=== PATIENT | female | born 1965 | race Caucasian/White ===

== ENCOUNTER 2016-03-23 17:25 | Emergency (ER) ==
[2016-03-23 17:30] VITALS: BP 112/69; TEMP 98.9; BMI 21.1
--- NOTE | 2016-03-23 17:50 | ED.PDOC ---
General ED Provider: Dr. ERICA SORENSEN Chief Complaint: Back Pain Stated Complaint: 3 days lower back pain; no falls, no unusual activities Time Seen by Physician: 17:50 Mode of Arrival: Walk-In Information Source: Patient Exam Limitations: No limitations Primary Care Provider: LINUS HOLDER Nursing and Triage Documentation Reviewed and Agree: Yes Review of Systems - Review Of Systems Constitutional: Reports: No symptoms GI: Reports: No symptoms : Reports: No symptoms Musculoskeletal: Reports: Back pain All Other Systems: Reviewed and Negative Past Medical History - Past Medical History Previously Healthy: Yes Endocrine: Reports: DM 2 Cardiovascular: Reports: None Respiratory: Reports: COPD, Asthma Hematological: Reports: None Gastrointestinal: Reports: None Genitourinary: Reports: None Neuro/Psych: Reports: None Musculoskeletal: Reports: None Cancer: Reports: None Last Menstrual Period: n/a Other Pertinent Past Medical History: BACK SURGERIES HYST. X 2 GALLBLADDER *LEFT GALL STONES THAT WERE N - Surgical History General Surgical History: Reports: Hysterectomy, (x2), Cholecystectomy , Back Surgery (x2) - Family History Family History: Reports: Lung (asthma ) - Social History Smoking Status: Current every day smoker, Heavy tobacco smoker Hx Substance Use: No Alcohol Screening: None Physical Exam - Physical Exam Appearance: Well-appearing Pain Distress: Mild Eyes: TROY Respiratory: Airway patent Skin: Warm, Dry, Normal color Neurological: Sensation intact, Motor intact, Alert, Oriented Psychiatric: Affect appropriate, Mood appropriate Interpretation - Radiology Interpretation Radiology Interpretation By: Radiologist Radiology Results: Positive Exam Interpreted: Other Xray Comments: Abdomen pelvis = cyst R ovary; LS no apparent acute changes Critical Care Note - Critical Care Note Total Time (mins): 20 Course - Course Orders, Labs, Meds: Lab Review 03/23/16 17:55 Urine Color Yellow Urine Clarity Clear Urine pH 5.0 Ur Specific [place] 1.010 Urine Protein Negative Urine Glucose (UA) Negative Urine Ketones Negative Urine Blood Negative Urine Nitrite Negative Urine Bilirubin Negative Urine Urobilinogen 0.2 Ur Leukocyte Esterase 1+ Urine Microscopic WBC 20-30 Ur Squamous Epith Cells Not present Urine Mucus 1+ Orders Category Date Time Status URINALYSIS C & S IF INDICATED Stat LAB 03/23/16 17:55 Completed URINE CULTURE Routine LAB 03/23/16 17:55 Results Hydromorphone HCl/Pf [Dilaudid 2 mg/ml Syringe] MEDS 03/23/16 18:56 Discontinued 2 mg IM ONCE STA Ondansetron [Zofran Odt] MEDS 03/23/16 18:56 Discontinued 4 mg PO ONCE STA CT ABD/PEL WO RENAL STONE PROT Stat RADS 03/23/16 18:[address] LUMBAR SPINE W/O CONTRAST Stat RADS 03/23/16 17:51 Completed Medications Discontinued Medications Generic Name Dose Route Start Last Admin Trade Name Shelley PRN Reason Stop Dose Admin Hydromorphone HCl 2 mg 03/23/16 18:56 03/23/16 19:12 Dilaudid 2 Mg/Ml Syringe IM 03/23/16 18:57 2 mg ONCE STA Administration Ondansetron HCl 4 mg 03/23/16 18:56 03/23/16 19:13 Zofran Odt PO 03/23/16 18:57 4 mg ONCE STA Administration Vital Signs: Temp Pulse Resp BP Pulse Ox 03/23/16 17:25 98.9 F 131 H 20 112/69 95 Departure - Departure Time of Disposition: 19:30 Disposition: HOME SELF-CARE Discharge Problem: Acute bilateral low back pain without sciatica, Ovarian cyst, right Instructions: Acute Low Back Pain (ED) Condition: Good Pt referred to PMD for follow-up: Yes (Call for appointment) Additional Instructions: Take your usual medications; follow up with primary care. Discuss pain management is not alredy on a plan. Allergies/Adverse Reactions: Allergies aspirin Adverse Reaction (Verified 03/23/16 17:28) blue dye Adverse Reaction (Verified 03/23/16 17:28) codeine Adverse Reaction (Verified 03/23/16 17:28) ibuprofen Adverse Reaction (Verified 03/23/16 17:28) CANT BREATHE ketorolac tromethamine [From Toradol] Adverse Reaction (Verified 03/23/16 17:28) levofloxacin [From Levaquin] Adverse Reaction (Verified 03/23/16 17:28) NSAIDS (Non-Steroidal Anti-Inflamma Adverse Reaction (Verified 03/23/16 17:28) oxaprozin [From Daypro] Adverse Reaction (Verified 03/23/16 17:28) Penicillins Adverse Reaction (Verified 03/23/16 17:28) sulfamethoxazole [From Bactrim] Adverse Reaction (Verified 03/23/16 17:28) trimethoprim [From Bactrim] Adverse Reaction (Verified 03/23/16 17:28) Home Medications: Ambulatory Orders Metformin HCl [Fortamet] 500 mg PO BID 12/27/13 Ropinirole HCl [Requip] 2 mg PO BEDTIME 12/27/13 Tiotropium [place] [Spiriva] 1 cap IH DAILY 02/16/14 Albuterol Sulfate [Proair Hfa] 2 puff INH Q4H PRN 08/17/14 Hydrocodone/Acetaminophen [[place] 10-325 Tablet] 1 each PO Q6HR PRN #20 tablet Albuterol Sulfate 0.083% Neb [Albuterol 0.083% Neb] 1 vial NEB RTQ4H PRN Quetiapine Fumarate [Seroquel] 300 mg PO BEDTIME 02/07/15 Atorvastatin Calcium [Lipitor] 20 mg PO BEDTIME #30 tablet 07/04/15 Lisinopril [Zestril] 5 mg PO DAILY #30 tablet 07/04/15 Ipratropium/Albuterol Neb [Duoneb] 1 vial NEB RTQ6H PRN #90 vial.neb 11/12/15 Disposition Discussed With: Patient
[2016-03-23 18:06] LABS: BILIRUBIN,URINE Negative (NEGATIVE); KETONES,URINE Negative (NEGATIVE); LEUKOCYTE ESTERASE ,URINE 1+ (NEGATIVE); NITRITE,URINE Negative (NEGATIVE); PROTEIN,URINE Negative (NEGATIVE); URINE, BLOOD Negative (NEGATIVE)
[2016-03-23 18:15] LABS: ADD URINE MICROSCOPIC YES
--- NOTE | 2016-03-23 18:47 | CT ---
EXAM: CT scan of the abdomen and pelvis without contrast HISTORY: Back, flank pain TECHNIQUE: Imaging of the abdomen and pelvis was performed without intravenous contrast. 3 mm thin axial images and coronal and sagittal reconstructions were provided for interpretation. Comparison CT scan of the chest, abdomen and pelvis dated 02/08/2015. FINDINGS: The patient has had previous cholecystectomy. The liver, spleen, pancreas, adrenal gland s and kidneys appear normal. The proximal ureters are normal size. The small and large bowel loops are normal caliber. The appendix appears normal. No acute abnormalities are seen within the anteri or abdominal wall. The helical images obtained through the pelvis demonstrate a normal appearance of the rectum, urinar y bladder. There has been previous hysterectomy. There is a prominent cystic lesion seen within th e left adnexa measuring 4.2 cm AP, 4.5 cm transverse, 4.8 cm in height. There is no free fluid seen within the pelvis. No retroperitoneal abnormalities are seen. Lung bases are clear. No lytic or b lastic lesions are seen within the osseous structures. IMPRESSION: There is no ureteral obstruction. There is a prominent cystic lesion seen within the left adnexa measuring up to 4.8 cm in height. Fi ndings likely represent an ovarian cyst. Pelvic ultrasound can be obtained for further evaluation. The lesion appears to be increase in size when compared to previous study. There has been previous hysterectomy.
--- NOTE | 2016-03-23 18:53 | CT ---
EXAM: CT of the lumbar spine without contrast. HISTORY: Low back pain. PROCEDURE: Contiguous axial CT images of the lumbar spine without contrast with coronal and sagitta l reformats. FINDINGS: There is normal alignment of the lumbar vertebral bodies and facets. The vertebral body heights are maintained. There is disc space narrowing at L4-5 and L5, S1 with vacuum disc phenomeno n at both levels. There is multilevel facet arthropathy. There is a right hemilaminectomy defect a t L5. There are small disc bulges at L3-4 and L5, S1. There is a moderate central and right parace ntral disc osteophyte complex at L4-L5 resulting in right lateral recess and neural foraminal narrow ing. Impression: Moderate central and right paracentral disc osteophyte complex at L4-L5 resulting in ri ght lateral recess and neural foraminal narrowing. Small disc bulges at L3-4 and L5, S1. Normal alignment of the lumbar spine with degenerative changes as described. Operative changes as described.
[2016-03-23] MEDS ORDERED: ZOFRAN ODT PO STA (18:56)
[2016-03-23] MEDS ORDERED: DILAUDID 2 MG/ML SYRINGE IM STA (18:56)
== END 2016-03-23 19:25 | disposition home or self-care (01) ==
LOC: ED 17:25
DX: M54.5 Low back pain (principal); N83.201 Unspecified ovarian cyst, right side; F17.210 Nicotine dependence, cigarettes, uncomplicated; Z79.899 Other long term (current) drug therapy
CPT/HCPCS: 74176; 81001; 87086; 96372; 99282

== ENCOUNTER 2016-04-09 23:37 | Emergency (ER) ==
[2016-04-09 23:51] VITALS: BP 94/68; TEMP 98.2; BMI 20.5
[2016-04-10] MEDS ORDERED: DECADRON 4 MG/ML SDV IM STA (00:07)
--- NOTE | 2016-04-10 00:10 | ED.PDOC ---
General ED Provider: Dr. YULIYA JENKINS Chief Complaint: Shortness of Air Stated Complaint: coughing and short of breath more tonight. has f/u with Dr quiroz in am, been taking albuterol tretaments. Time Seen by Physician: 00:08 Mode of Arrival: Walk-In Information Source: Patient Primary Care Provider: LINUS HOLDER Nursing and Triage Documentation Reviewed and Agree: Yes Respiratory Complaint Exam - Shortness of Air Complaint/Exam Symptoms Are: Still present Timing: Constant Initial Severity: Mild Current Severity: Mild Character: Reports: Dyspnea at rest, Dyspnea on exertion Aggravating: Reports: Allergens, URI Alleviating: Reports: None Associated Signs and Symptoms: Reports: Cough, Wheezing. Denies: Chest pain with cough, Chest pain, Fever, Chills, Diaphoresis, Nasal congestion, Dizziness , Calf pain, Calf swelling, Edema, Rapid breathing, Labored breathing, Decreased intake Related History: Reports: Similar episode History of Healthcare-Acquired Pneumonia: No Pulmonary Embolism Risk Factors: Reports: None Cardiac Risk Factors: Reports: None Pseudomonas Risk Factors: Reports: None Tuberculosis Risk Factors: Reports: None Home Oxygen Use: No Recent Stress Test: No Recent Echo/LV Function: No Respiratory Distress: None Stridor Present: No Tracheal Deviation: No Subcutaneous Emphysema: No Accessory Muscle Use: No Retractions: Not Present Diminished Breath Sounds: No Prolonged Expiratory Phase: Yes Unable to Speak Full Sentences: No Differential Diagnoses: Pneumonia, Bronchitis, URI Review of Systems - Review Of Systems Constitutional: Reports: Malaise, Weakness Eyes: Reports: No symptoms Ears, Nose, Mouth, Throat: Reports: No symptoms Respiratory: Reports: Cough, Short of air Cardiac: Reports: No symptoms GI: Reports: No symptoms : Reports: No symptoms Musculoskeletal: Reports: No symptoms Skin: Reports: No symptoms Neurological: Reports: No symptoms Endocrine: Reports: No symptoms Hematologic/Lymphatic: Reports: No symptoms All Other Systems: Reviewed and Negative Past Medical History - Past Medical History Previously Healthy: Yes Endocrine: Reports: DM 2 Cardiovascular: Reports: None Respiratory: Reports: COPD, Asthma Hematological: Reports: None Gastrointestinal: Reports: None Genitourinary: Reports: None Neuro/Psych: Reports: None Musculoskeletal: Reports: None Cancer: Reports: None Last Menstrual Period: 1991 Other Pertinent Past Medical History: BACK SURGERIES HYST. X 2 GALLBLADDER *LEFT GALL STONES THAT WERE N - Surgical History General Surgical History: Reports: Hysterectomy, (x2), Cholecystectomy , Back Surgery (x2) - Family History Family History: Reports: Lung (asthma ) - Social History Smoking Status: Current every day smoker, Heavy tobacco smoker Smoking Cessation Counseling Time: > 10 min Hx Substance Use: No Alcohol Screening: None - Immunizations Tetanus Shot up to Date: No Physical Exam - Physical Exam Appearance: Well-appearing, Thin Eyes: EOMI, Conjunctiva clear ENT: Ears normal, Nose normal, Oropharynx normal Respiratory: Crackles, Wheezes Cardiovascular: Tachycardia GI/: Soft, Nontender, No masses, Bowel sounds normal, No Organomegaly Musculoskeletal: Normal strength, ROM intact, No edema, No calf tenderness Skin: Warm, Dry, Normal color Neurological: Sensation intact, Motor intact, Reflexes intact, Cranial nerves intact, Alert, Oriented Psychiatric: Affect appropriate, Mood appropriate Critical Care Note - Critical Care Note Total Time (mins): 0 Course - Course Orders, Labs, Meds: Orders Category Date Time Status Dexamethasone 4 mg/ml Inj [Decadron 4 mg/ml Sdv] MEDS 04/10/16 00:07 Stat 4 mg IM ONCE STA CHEST, 1V AP ONLY Stat RADS 04/10/16 00:07 Ordered Vital Signs: Temp Pulse Resp BP Pulse Ox 04/09/16 23:45 98.2 F 150 H 22 94/68 94 L Departure - Departure Time of Disposition: 00:19 Disposition: HOME SELF-CARE Discharge Problem: URTI (acute upper respiratory infection) Instructions: Acute Bronchitis (ED) Condition: Stable Pt referred to PMD for follow-up: Yes Additional Instructions: keep f/u with Dr Quiroz in am. NO SMOKING, AND RISK OF LUNG CANCER DISCUSSED. Prescriptions: Prednisone 10 mg PO BIDWM #14 tablet Allergies/Adverse Reactions: Allergies aspirin Adverse Reaction (Verified 04/09/16 23:50) blue dye Adverse Reaction (Verified 04/09/16 23:50) codeine Adverse Reaction (Verified 04/09/16 23:50) ibuprofen Adverse Reaction (Verified 04/09/16 23:50) CANT BREATHE ketorolac tromethamine [From Toradol] Adverse Reaction (Verified 04/09/16 23:50) levofloxacin [From Levaquin] Adverse Reaction (Verified 04/09/16 23:50) NSAIDS (Non-Steroidal Anti-Inflamma Adverse Reaction (Verified 02/13/17 23:50) oxaprozin [From Daypro] Adverse Reaction (Verified 04/09/16 23:50) Penicillins Adverse Reaction (Verified 04/09/16 23:50) sulfamethoxazole [From Bactrim] Adverse Reaction (Verified 04/09/16 23:50) trimethoprim [From Bactrim] Adverse Reaction (Verified 04/09/16 23:50) Home Medications: Ambulatory Orders Metformin HCl [Fortamet] 500 mg PO BID 12/27/13 Ropinirole HCl [Requip] 2 mg PO BEDTIME 12/27/13 Tiotropium [place] [Spiriva] 1 cap IH DAILY 02/16/14 Albuterol Sulfate [Proair Hfa] 2 puff INH Q4H PRN 08/17/14 Hydrocodone/Acetaminophen [[place] 10-325 Tablet] 1 each PO Q6HR PRN #20 tablet Albuterol Sulfate 0.083% Neb [Albuterol 0.083% Neb] 1 vial NEB RTQ4H PRN Quetiapine Fumarate [Seroquel] 300 mg PO BEDTIME 02/07/15 Atorvastatin Calcium [Lipitor] 20 mg PO BEDTIME #30 tablet 07/04/15 Lisinopril [Zestril] 5 mg PO DAILY #30 tablet 07/04/15 Ipratropium/Albuterol Neb [Duoneb] 1 vial NEB RTQ6H PRN #90 vial.neb 11/12/15 Prednisone 10 mg PO BIDWM #14 tablet 04/10/16 Disposition Discussed With: Patient, Family
--- NOTE | 2016-04-10 07:08 | DI ---
EXAM: Single AP view of the chest HISTORY: Cough. COMPARISON: Chest x-ray 01/25/2016 FINDINGS: Cardiomediastinal silhouette is normal. There is no pneumothorax or pleural effusion. Th ere is no consolidation, nodule or mass. The osseous structures are unremarkable. IMPRESSION: No acute cardiopulmonary process.
== END 2016-04-10 01:00 | disposition home or self-care (01) ==
LOC: ED 23:37
DX: J06.9 Acute upper respiratory infection, unspecified (principal); F17.210 Nicotine dependence, cigarettes, uncomplicated
CPT/HCPCS: 96372; 99283

== ENCOUNTER 2016-05-11 12:45 | Emergency (ER) ==
[2016-05-11] MEDS ORDERED: DUONEB NEB STA (12:48)
[2016-05-11] MEDS ORDERED: SOLU-MEDROL 125 MG IVP STA (12:48)
[2016-05-11 12:56] LABS: ABG BASE EXCESS -2 (-2.0-2.0); ABG HCO3 23 (22.0-26.0); ABG TCO2 24 (22.0-28.0)
--- NOTE | 2016-05-11 13:06 | ED.PDOC ---
General ED Provider: Dr. MORGAN KATZ JR Stated Complaint: INCREASED DIFFICULTLY IN BREATHING FOR 1 WEEK. WORSE TODAY.[ End]98.1 133 22 93% 119/69 7/10 Time Seen by Physician: 12:40 Mode of Arrival: Walk-In Information Source: Patient, Family Exam Limitations: No limitations, Clinical condition Primary Care Provider: LINUS HOLDER Nursing and Triage Documentation Reviewed and Agree: No Review of Systems - Review Of Systems Constitutional: Reports: Malaise, Weakness Eyes: Reports: No symptoms Ears, Nose, Mouth, Throat: Reports: No symptoms Respiratory: Reports: Short of air, Wheezing Cardiac: Reports: No symptoms GI: Reports: No symptoms : Reports: No symptoms Musculoskeletal: Reports: No symptoms Skin: Reports: No symptoms Neurological: Reports: No symptoms Endocrine: Reports: No symptoms Hematologic/Lymphatic: Reports: No symptoms All Other Systems: Other Past Medical History - Past Medical History Previously Healthy: Yes Endocrine: Reports: DM 2, Dyslipidemia Cardiovascular: Reports: Hypertension, Other (HEART MURMUR ) Respiratory: Reports: COPD, Asthma Hematological: Reports: None Gastrointestinal: Reports: GERD Genitourinary: Reports: Kidney stones Neuro/Psych: Reports: Migraine, Bipolar Disorder Musculoskeletal: Reports: Arthritis, Back Pain (CHRONIC BACK PAIN ) Cancer: Reports: None Other Pertinent Past Medical History: LUMBAR SURGERY X2 GB C-SECTIONS X2 tonsillectomy [ End ] - Surgical History General Surgical History: Reports: Hysterectomy (HYSTERECTOMY 1991), ( x2), Cholecystectomy ( *LEFT GALL STONES THAT WERE N), Tonsillectomy, Back Surgery (LUMBAR SURGERY X2 ) - Family History Family History: Reports: Lung (asthma ) - Social History Smoking Status: Current every day smoker, Heavy tobacco smoker Hx Substance Use: No Alcohol Screening: None Physical Exam - Physical Exam Appearance: Ill-appearing, Thin Ill-appearing: Moderate Pain Distress: Moderate Eyes: TROY, EOMI, Conjunctiva clear ENT: Ears normal, Nose normal, Oropharynx normal Neck: Supple Respiratory: Airway patent, Breath sounds diminished, Rhonchi, Wheezes, Retractions Cardiovascular: RRR, Pulses normal, No rub, No murmur Skin: Warm, Dry, Normal color Psychiatric: Anxious Interpretation - EKG Interpretation Time of EKG #1: 13:05 Rate: Tachy Rhythm: Sinus [place]: Left ST Segment: Other (low voltage inferior conduction delay no acute changes) Re-Evaluation - Re-Evaluation Time of Re-Evaluation: 15:44 Status: Improved (requests 10mg pred bid) Critical Care Note - Critical Care Note Total Time (mins): 20 Course - Course Hematology/Chemistry: 05/11/16 13:00 05/11/16 13:00 Orders, Labs, Meds: Lab Review 05/11/16 05/11/16 12:47 13:00 WBC 7.06 RBC 4.46 Hgb 12.6 Hct 37.6 MCV 84.3 MCH 28.3 MCHC 33.5 RDW Coeff of [place] 13.1 Plt Count 251 Immature Gran % (Auto) 0.4 Neut % (Auto) 56.4 Lymph % (Auto) 38.1 [place]ye % (Auto) 4.8 Eos % (Auto) 0.0 Baso % (Auto) 0.3 Immature Gran # (Auto) 0.0 Neut # 4.0 Lymph # 2.7 Nye # 0.3 L Eos # 0.0 Baso # 0.0 D-Dimer 0.38 Puncture Site R rad O2 Saturation 95.0 ABG pH 7.40 ABG pCO2 37.0 ABG pO2 75.0 L ABG HCO3 23 ABG Total CO2 24 ABG Base Excess -2 Quentin Test + FiO2 % 21.0 Sodium 141 Potassium 4.3 Chloride 104 Carbon Dioxide 26 Anion Gap 15.3 BUN 12 Creatinine 0.83 Estimated GFR (MDRD) 72.00 BUN/Creatinine Ratio 14.45 Glucose 175 H Lactic Acid 15.8 Calcium 9.9 Total Bilirubin 0.52 AST 11 L ALT < 6 L Alkaline Phosphatase 152 H Total Creatine Kinase 51 Troponin I < 0.0100 B-Natriuretic Peptide 20 Total Protein 7.3 Albumin 4.2 Globulin 3.1 Albumin/Globulin Ratio 1.35 Procalcitonin < 0.05 Orders Category Date Time Status ABG DRAW REQUEST Stat CARDIO 05/11/16 12:47 Completed EKG-(ED ONLY) Stat CARDIO 05/11/16 12:47 Completed NEBULIZER TREATMENT Stat CARDIO 05/11/16 12:48 Completed ED APPLY O2 .ONCE EMERGENCY 05/11/16 12:46 Active ED SALES ACCOUNT REPRESENTATIVE APPLIED .ONCE EMERGENCY 05/11/16 12:46 Active ED IV/MEDIPORT/POWERPORT .ONCE EMERGENCY 05/11/16 12:46 Active ABG Stat LAB 05/11/16 12:47 Completed B-TYPE NATRIURETIC PEPTIDE Stat LAB 05/11/16 13:00 Completed BLOOD CULTURE Stat LAB 05/11/16 13:00 Received CBC W/ AUTO DIFF Stat LAB 05/11/16 13:00 Completed COMPREHENSIVE METABOLIC PANEL Stat LAB 05/11/16 13:00 Completed CREATINE KINASE Stat LAB 05/11/16 13:00 Completed D-DIMER Stat LAB 05/11/16 13:00 Completed LACTIC ACID Stat LAB 05/11/16 13:00 Completed PROCALCITONIN Stat LAB 05/11/16 13:00 Completed TROPONIN I Stat LAB 05/11/16 13:00 Completed 0.9 % Sodium Chloride [Saline Flush] MEDS 05/11/16 12:46 Discontinued 1 syr IVF PRN PRN Ipratropium/Albuterol Neb [Duoneb] MEDS 05/11/16 12:48 Discontinued 1 vial NEB ONCE STA Methylprednisolone Sod Succ/Pf [Solu-Medrol 125 mg] MEDS 05/11/16 12:48 Discontinued 125 mg IVP ONCE STA CHEST, 1V AP ONLY Stat RADS 05/11/16 12:47 Completed Medications Discontinued Medications Generic Name Dose Route Start Last Admin Trade Name Freq PRN Reason Stop Dose Admin Albuterol/Ipratropium 1 vial 05/11/16 12:48 05/11/16 13:09 Duoneb NEB 05/11/16 12:49 1 vial ONCE STA Administration Methylprednisolone Sodium Succinate 125 mg 05/11/16 12:48 05/11/16 14:14 Solu-Medrol 125 Mg IVP 05/11/16 12:49 125 mg ONCE STA Administration Sodium Chloride 1 syr 05/11/16 12:46 05/11/16 14:15 Saline Flush IVF 1 syr PRN PRN Administration To flush IV Vital Signs: Temp Pulse Resp BP Pulse Ox 05/11/16 12:50 98.1 F 133 H 22 119/69 93 L Departure - Departure Time of Disposition: 15:44 Disposition: HOME SELF-CARE Discharge Problem: COPD exacerbation Instructions: COPD (Chronic Obstructive Pulmonary Disease) (ED) Condition: Good Pt referred to PMD for follow-up: Yes Additional Instructions: call PMD today for follow up continue usual medications take(duoneb and or proair) inhalers every 6 hours for three days return if worse continue home oxygen Prescriptions: Prednisone 10 mg PO BIDWM PRN #14 tablet PRN Reason: Wheezing Allergies/Adverse Reactions: Allergies ibuprofen Allergy (Severe, Verified 05/11/16 13:24) CANT BREATHE aspirin Adverse Reaction (Verified 05/11/16 13:24) Unknown blue dye Adverse Reaction (Verified 05/11/16 13:24) Unknown codeine Adverse Reaction (Verified 05/11/16 13:24) Unknown ketorolac tromethamine [From Toradol] Adverse Reaction (Verified 05/11/16 13:24) Unknown levofloxacin [From Levaquin] Adverse Reaction (Verified 05/11/16 13:24) Unknown NSAIDS (Non-Steroidal Anti-Inflamma Adverse Reaction (Verified 05/11/16 13:24) Unknown oxaprozin [From Daypro] Adverse Reaction (Verified 05/11/16 13:24) Unknown Penicillins Adverse Reaction (Verified 05/11/16 13:24) Unknown sulfamethoxazole [From Bactrim] Adverse Reaction (Verified 05/11/16 13:24) Unknown trimethoprim [From Bactrim] Adverse Reaction (Verified 05/11/16 13:24) Unknown Home Medications: Ambulatory Orders Metformin HCl [Fortamet] 500 mg PO BID 12/27/13 Ropinirole HCl [Requip] 2 mg PO BEDTIME 12/27/13 Tiotropium [place] [Spiriva] 1 cap IH DAILY 02/16/14 Albuterol Sulfate [Proair Hfa] 2 puff INH Q4H PRN 08/17/14 Albuterol Sulfate 0.083% Neb [Albuterol 0.083% Neb] 1 vial NEB RTQ4H PRN Quetiapine Fumarate [Seroquel] 300 mg PO BEDTIME 02/07/15 Atorvastatin Calcium [Lipitor] 20 mg PO BEDTIME #30 tablet 07/04/15 Lisinopril [Zestril] 5 mg PO DAILY #30 tablet 07/04/15 Ipratropium/Albuterol Neb [Duoneb] 1 vial NEB RTQ6H PRN #90 vial.neb 11/12/15 Hydrocodone/Acetaminophen [[place] 10-325 Tablet] 10 mg PO Q6HR PRN 05/11/16 Prednisone 10 mg PO BIDWM PRN #14 tablet 05/11/16
[2016-05-11 13:11] VITALS: BP 119/69; TEMP 98.1; BMI 20.9
[2016-05-11 13:13] LABS: BASOPHILS % (AUTO) 0.3 % (0.0-3.0); HEMATOCRIT 37.6 % (37.0-47.0); HEMOGLOBIN 12.6 g/dl (12.0-16.0); IMMATURE GRANULOCYTE % (AUTO) 0.4 % (0.0-5.0); LYMPHOCYTES # (AUTO) 2.7 K/uL (0.60-3.4); LYMPHOCYTES % (AUTO) 38.1 (10.0-50.0); MEAN CORPUSCULAR HEMOGLOBIN 28.3 pg (27.0-31.0); MEAN CORPUSCULAR HGB CONC 33.5 (31.8-35.4); MEAN CORPUSCULAR VOLUME 84.3 fl (81.0-99.0); MONOCYTES # (AUTO) 0.3 K/uL (0.4-2.0); MONOCYTES % (AUTO) 4.8 (0-10); NEUTROPHILS % (AUTO) 56.4; PLATELET COUNT 251 10^3/uL (140-440); RED BLOOD COUNT 4.46 10^6/ul (4.20-5.40); WHITE BLOOD COUNT 7.06 K/ul (4.6-10.2)
[2016-05-11 13:39] LABS: ALANINE AMINOTRANSFERASE < 6 U/L (12-78); ALBUMIN 4.2 g/dL (3.4-5.0); ALBUMIN/GLOBULIN RATIO 1.35; ALKALINE PHOSPHATASE 152 U/L (42-98); ANION GAP 15.3; ASPARTATE AMINO TRANSFERASE 11 U/L (15-37); BILIRUBIN,TOTAL 0.52 mg/dL (0.00-1.20); BLOOD UREA NITROGEN 12 mg/dL (7-18); BUN/CREATININE RATIO 14.45; CALCIUM 9.9 mg/dL (8.2-10.2); CARBON DIOXIDE 26 mmol/L (21-32); CHLORIDE 104 mmol/L (98-107); CREATINE KINASE 51 U/L; CREATININE 0.83 mg/dL (0.60-1.30); GLUCOSE 175 mg/dL (70-110); POTASSIUM 4.3 mmol/L (3.5-5.10); SODIUM 141 mmol/L (136-145); TOTAL PROTEIN 7.3 g/dL (6.4-8.2)
--- NOTE | 2016-05-11 13:42 | DI ---
EXAM: CHEST FRONTAL VIEW HISTORY: Chest pain. COMPARISON: 04/10/2016 FINDINGS: Heart size and mediastinum remain within normal limits. Lungs are free of infiltrate. No consolidation or pleural fluid. There is no pneumothorax or acute bony finding. IMPRESSION: Findings within normal limits.
== END 2016-05-11 15:57 | disposition home or self-care (01) ==
LOC: ED 12:45
DX: J44.1 Chronic obstructive pulmonary disease with (acute) exacerbation (principal); F17.210 Nicotine dependence, cigarettes, uncomplicated; Z79.899 Other long term (current) drug therapy
CPT/HCPCS: 36415; 80053; 82550; 82803; 83605; 83880; 84145; 84484; 85025; 85379; 87040; 93005; 93010; 94640; 96374; 99283

== ENCOUNTER 2017-02-05 20:04 | Emergency (ER) ==
[2017-02-05 20:06] VITALS: BP 113/70; TEMP 98.6; BMI 19.9
[2017-02-05] MEDS ORDERED: ZOFRAN 4 MG/2 ML IM STA (20:33)
[2017-02-05] MEDS ORDERED: STADOL IM STA (20:33)
--- NOTE | 2017-02-05 20:41 | ED.PDOC ---
General ED Provider: Dr. YULIYA JENKINS Chief Complaint: Headache Stated Complaint: Been hurting in the head, lights bothering. has h/o Migraine, Time Seen by Physician: 20:37 Mode of Arrival: Walk-In Information Source: Patient Primary Care Provider: LINUS HOLDER Nursing and Triage Documentation Reviewed and Agree: Yes Neurological Complaint Exam - Headache Complaint/Exam Onset: Gradual Symptoms Are: Still present Timing: Constant Episodes Lasting: Hours Worst Headache Ever: No Initial Severity: Moderate Current Severity: Severe Location: Right, Left, Frontal Character: Reports: Migraine Aggravating: Reports: Bright lights Alleviating: Reports: None Associated Signs and Symptoms: Reports: Nausea. Denies: Dizziness, Seizure, Vomiting, Sinus pressure, Fever, Neck pain, Neck stiffness, Decreased LOC, Visual changes Related History: Reports: Similar episode Related Surgical History: Reports: None SAH Risk Factors: Reports: None Meningitis Risk Factors: Reports: None SDH Risk Factors: Reports: None Temporal Arteritis Risk Factors: Reports: None Normal Head CT Within Last 12 Months: No Fundoscopic Exam: Present: Normal Findings Temporal Artery Tenderness: Present: None Sinus Tenderness: Present: None TMJ Tenderness: Present: None Meningeal Signs Positive: No Pain on Passive Flexion-Positive Kernig's: No ROM Limited In: No Limitiations Focal Weakness: Present: None Focal Sensory Loss: Present: None Gait: Normal Nystagmus Present: No Gag Reflex Present: No [id number]: Normal Findings Romberg Test Positive: No Differential Diagnoses: Migraine Review of Systems - Review Of Systems Constitutional: Reports: No symptoms Eyes: Reports: No symptoms Ears, Nose, Mouth, Throat: Reports: No symptoms Respiratory: Reports: No symptoms Cardiac: Reports: No symptoms GI: Reports: No symptoms : Reports: No symptoms Musculoskeletal: Reports: No symptoms Skin: Reports: No symptoms Neurological: Reports: Headache Endocrine: Reports: No symptoms Hematologic/Lymphatic: Reports: No symptoms All Other Systems: Reviewed and Negative Past Medical History - Past Medical History Previously Healthy: Yes Endocrine: Reports: DM 2, Dyslipidemia Cardiovascular: Reports: Hypertension, Other (HEART MURMUR ) Respiratory: Reports: COPD, Asthma Hematological: Reports: None Gastrointestinal: Reports: GERD Genitourinary: Reports: Kidney stones Neuro/Psych: Reports: Migraine, Bipolar Disorder Musculoskeletal: Reports: Arthritis, Back Pain (CHRONIC BACK PAIN ) Cancer: Reports: None Last Menstrual Period: n/a Other Pertinent Past Medical History: LUMBAR SURGERY X2 GB C-SECTIONS X2 tonsillectomy [ End ] - Surgical History General Surgical History: Reports: Hysterectomy (HYSTERECTOMY 1991), ( x2), Cholecystectomy ( *LEFT GALL STONES THAT WERE N), Tonsillectomy, Back Surgery (LUMBAR SURGERY X2 ) - Family History Family History: Reports: Lung (asthma ) - Social History Smoking Status: Current every day smoker, Heavy tobacco smoker Smoking Cessation Counseling Time: > 10 min Hx Substance Use: No Alcohol Screening: None Physical Exam - Physical Exam Appearance: Ill-appearing Eyes: TROY, EOMI, Conjunctiva clear ENT: Ears normal, Nose normal, Oropharynx normal Respiratory: Airway patent, Breath sounds clear, Breath sounds equal, Respirations nonlabored Cardiovascular: RRR, Pulses normal, No rub, No murmur GI/: Soft, Nontender, No masses, Bowel sounds normal, No Organomegaly Musculoskeletal: Normal strength, ROM intact, No edema, No calf tenderness Skin: Warm, Dry, Normal color Neurological: Sensation intact, Motor intact, Reflexes intact, Cranial nerves intact, Alert, Oriented Psychiatric: Affect appropriate, Mood appropriate Critical Care Note - Critical Care Note Total Time (mins): 0 Course - Course Orders, Labs, Meds: Orders Category Date Time Status Butorphanol Tartrate [Stadol] MEDS 02/05/17 20:33 Stat 2 mg IM ONCE STA Ondansetron HCl/Pf [Zofran 4 mg/2 ml] MEDS 02/05/17 20:33 Stat 4 mg IM ONCE STA CT HEAD W/O CONTRAST Stat RADS 02/05/17 20:30 Ordered Medications Discontinued Medications Generic Name Dose Route Start Last Admin Trade Name Raymundoq PRN Reason Stop Dose Admin Butorphanol Tartrate 2 mg 02/05/17 20:33 Stadol IM 02/05/17 20:34 ONCE STA Ondansetron HCl 4 mg 02/05/17 20:33 Zofran 4 Mg/2 Ml IM 02/05/17 20:34 ONCE STA Vital Signs: Temp Pulse Resp BP Pulse Ox 02/05/17 20:04 98.6 F 130 H 20 113/70 95 Departure - Departure Time of Disposition: 20:48 Disposition: HOME SELF-CARE Discharge Problem: Headache Instructions: Migraine Headache (ED) Condition: Good Pt referred to PMD for follow-up: Yes Additional Instructions: Keep f/u with PMD needs further evaluation. Prescriptions: Butalb/Acetaminophen/Caffeine [Fioricet] 1 each PO TID #14 tablet Allergies/Adverse Reactions: Allergies ibuprofen Allergy (Severe, Verified 02/05/17 20:06) CANT BREATHE aspirin Adverse Reaction (Verified 02/05/17 20:06) Unknown blue dye Adverse Reaction (Verified 02/05/17 20:06) Unknown codeine Adverse Reaction (Verified 02/05/17 20:06) Unknown ketorolac tromethamine [From Toradol] Adverse Reaction (Verified 02/05/17 20:06) Unknown levofloxacin [From Levaquin] Adverse Reaction (Verified 02/05/17 20:06) Unknown NSAIDS (Non-Steroidal Anti-Inflamma Adverse Reaction (Verified 02/05/17 20:06) Unknown oxaprozin [From Daypro] Adverse Reaction (Verified 02/05/17 20:06) Unknown Penicillins Adverse Reaction (Verified 02/05/17 20:06) Unknown sulfamethoxazole [From Bactrim] Adverse Reaction (Verified 02/05/17 20:06) Unknown trimethoprim [From Bactrim] Adverse Reaction (Verified 02/05/17 20:06) Unknown Home Medications: Ambulatory Orders Metformin HCl [Fortamet] 500 mg PO BID 12/27/13 Ropinirole HCl [Requip] 2 mg PO BEDTIME 12/27/13 Tiotropium [place] [Spiriva] 1 cap IH DAILY 02/16/14 Albuterol Sulfate [Proair Hfa] 2 puff INH Q4H PRN 08/17/14 Albuterol Sulfate 0.083% Neb [Albuterol 0.083% Neb] 1 vial NEB RTQ4H PRN Quetiapine Fumarate [Seroquel] 300 mg PO BEDTIME 02/07/15 Atorvastatin Calcium [Lipitor] 20 mg PO BEDTIME #30 tablet 07/04/15 Lisinopril [Zestril] 5 mg PO DAILY #30 tablet 07/04/15 Ipratropium/Albuterol Neb [Duoneb] 1 vial NEB RTQ6H PRN #90 vial.neb 11/12/15 Hydrocodone/Acetaminophen [[place] 10-325 Tablet] 10 mg PO Q6HR PRN 05/11/16 Butalb/Acetaminophen/Caffeine [Fioricet] 1 each PO TID #14 tablet 02/05/17 Disposition Discussed With: Patient, Family
--- NOTE | 2017-02-05 21:12 | CT ---
EXAM: Noncontrast CT head. HISTORY: Headaches. COMPARISON: 07/08/2012 TECHNIQUE: Noncontrast CT head was performed with axial, coronal and sagittal reconstructions. Findings: There is preservation of the grant-white differential without evidence of definitive large vessel acut e cortical infarct identified. No acute intracranial hemorrhage is identified. No midline shift is i dentified. No definitive intracranial mass lesion is identified within technical limitations of nonco ntrast CT. The basal cisterns are patent. The ventricles are normal in size and configuration. Limi roge evaluation of the skull demonstrates no visualized lucent skull acute fractures or destructive os seous lesions identified within the visualized portions of the skull. Partially visualized paranasal sinuses and mastoid air cells demonstrates mild mucosal thickening in the ethmoid air cells. Impression: 1. No acute intracranial hemorrhage or definitive large vessel acute cortical infarct identified.
== END 2017-02-05 21:58 | disposition home or self-care (01) ==
LOC: ED 20:04
DX: R51 Headache (principal); F17.210 Nicotine dependence, cigarettes, uncomplicated
CPT/HCPCS: 96372; 99283

== ENCOUNTER 2017-02-15 22:08 | Emergency (ER) ==
[2017-02-15 22:17] VITALS: BP 136/77; TEMP 98.5; BMI 20.3
--- NOTE | 2017-02-15 22:40 | ED.PDOC ---
General ED Provider: Dr. YULIYA JENKINS Chief Complaint: Headache Stated Complaint: Came for the headache, typical migarine, Took Home meds did not help Time Seen by Physician: 22:38 Mode of Arrival: Walk-In Information Source: Patient Primary Care Provider: LINUS HOLDER Nursing and Triage Documentation Reviewed and Agree: Yes Reviewed sepsis parameters & appropriate labs ordered?: No System Inflammatory Response Syndrome: Not Applicable Sepsis Protocol: For patient's 13 years and over: Temp is 96.8 and below OR 101 and greater Pulse >90 BPM Resp >20/minute Acutely Altered Mental Status Are patient's symptoms suggestive of a new infection, such as: -Pneumonia -Skin, Soft Tissue -Endocarditis -UTI -Bone, Joint Infection -Implantable Device -Acute Abdominal Infection -Wound Infection -Meningitis -Blood Stream Catheter Infection -Unknown Neurological Complaint Exam - Headache Complaint/Exam Onset: Gradual Symptoms Are: Still present Timing: Constant Episodes Lasting: Days Worst Headache Ever: No Initial Severity: Severe Current Severity: Moderate Location: Right, Left, Frontal Character: Reports: Typical headache, Migraine Aggravating: Reports: Bright lights Alleviating: Reports: None Associated Signs and Symptoms: Denies: Dizziness, Seizure, Nausea, Vomiting, Sinus pressure, Fever, Neck pain, Neck stiffness, Decreased LOC, Visual changes Related History: Reports: Similar episode Related Surgical History: Reports: None SAH Risk Factors: Reports: None Meningitis Risk Factors: Reports: None SDH Risk Factors: Reports: None Temporal Arteritis Risk Factors: Reports: None Normal Head CT Within Last 12 Months: No Papilledema Present: No Temporal Artery Tenderness: Present: None Sinus Tenderness: Present: None TMJ Tenderness: Present: None Meningeal Signs Positive: No Pain on Passive Flexion-Positive Kernig's: No ROM Limited In: No Limitiations Focal Weakness: Present: None Focal Sensory Loss: Present: None Gait: Normal Nystagmus Present: No Gag Reflex Present: Yes [id number]: Normal Findings Differential Diagnoses: Migraine Review of Systems - Review Of Systems Constitutional: Reports: No symptoms Eyes: Reports: No symptoms Ears, Nose, Mouth, Throat: Reports: No symptoms Respiratory: Reports: No symptoms Cardiac: Reports: No symptoms GI: Reports: No symptoms : Reports: No symptoms Musculoskeletal: Reports: No symptoms Skin: Reports: No symptoms Neurological: Reports: Headache Endocrine: Reports: No symptoms Hematologic/Lymphatic: Reports: No symptoms All Other Systems: Reviewed and Negative Past Medical History - Past Medical History Previously Healthy: Yes Endocrine: Reports: DM 2, Dyslipidemia Cardiovascular: Reports: Hypertension, Other (HEART MURMUR ) Respiratory: Reports: COPD, Asthma Hematological: Reports: None Gastrointestinal: Reports: GERD Genitourinary: Reports: Kidney stones Neuro/Psych: Reports: Migraine, Bipolar Disorder Musculoskeletal: Reports: Arthritis, Back Pain (CHRONIC BACK PAIN ) Cancer: Reports: None Last Menstrual Period: PT HAS HAD A HYSTERECTOMY Other Pertinent Past Medical History: LUMBAR SURGERY X2 GB C-SECTIONS X2 tonsillectomy [ End ] - Surgical History General Surgical History: Reports: Hysterectomy (HYSTERECTOMY 1991), ( x2), Cholecystectomy ( *LEFT GALL STONES THAT WERE N), Tonsillectomy, Back Surgery (LUMBAR SURGERY X2 ) - Family History Family History: Reports: Lung (asthma ) - Social History Smoking Status: Current every day smoker, Heavy tobacco smoker Smoking Cessation Counseling Time: > 3 min - 10 min Hx Substance Use: No Alcohol Screening: None - Immunizations Tetanus Shot up to Date: Yes Physical Exam - Physical Exam Appearance: Ill-appearing, Thin Eyes: EOMI ENT: Ears normal, Nose normal, Oropharynx normal Respiratory: Airway patent, Breath sounds clear, Breath sounds equal, Respirations nonlabored Cardiovascular: RRR, Pulses normal, No rub, No murmur GI/: Soft, Nontender, No masses, Bowel sounds normal, No Organomegaly Musculoskeletal: Normal strength, ROM intact, No edema, No calf tenderness Skin: Warm, Dry, Normal color Neurological: Sensation intact, Motor intact, Reflexes intact, Cranial nerves intact, Alert, Oriented Psychiatric: Affect appropriate, Mood appropriate Critical Care Note - Critical Care Note Total Time (mins): 15 Course - Course Vital Signs: Temp Pulse Resp BP Pulse Ox 02/15/17 22:08 98.5 F 113 H 24 136/77 96 Departure - Departure Time of Disposition: 22:43 Disposition: HOME SELF-CARE Discharge Problem: Headache Instructions: Migraine Headache (ED) Condition: Good Pt referred to PMD for follow-up: Yes Additional Instructions: Continue taking Fiorecet prn Needs further evaluation by Neurologist Allergies/Adverse Reactions: Allergies ibuprofen Allergy (Severe, Verified 02/15/17 22:17) CANT BREATHE aspirin Adverse Reaction (Verified 02/15/17 22:17) Unknown blue dye Adverse Reaction (Verified 02/15/17 22:17) Unknown codeine Adverse Reaction (Verified 02/15/17 22:17) Unknown ketorolac tromethamine [From Toradol] Adverse Reaction (Verified 02/15/17 22:17) Unknown levofloxacin [From Levaquin] Adverse Reaction (Verified 02/15/17 22:17) Unknown NSAIDS (Non-Steroidal Anti-Inflamma Adverse Reaction (Verified 02/15/17 22:17) Unknown oxaprozin [From Daypro] Adverse Reaction (Verified 02/15/17 22:17) Unknown Penicillins Adverse Reaction (Verified 02/15/17 22:17) Unknown sulfamethoxazole [From Bactrim] Adverse Reaction (Verified 02/15/17 22:17) Unknown trimethoprim [From Bactrim] Adverse Reaction (Verified 02/15/17 22:17) Unknown Home Medications: Ambulatory Orders Metformin HCl [Fortamet] 500 mg PO BID 12/27/13 Ropinirole HCl [Requip] 4 mg PO BEDTIME 12/27/13 Tiotropium [place] [Spiriva] 1 cap IH DAILY 02/16/14 Albuterol Sulfate [Proair Hfa] 2 puff INH Q4H PRN 08/17/14 Albuterol Sulfate 0.083% Neb [Albuterol 0.083% Neb] 1 vial NEB RTQ4H PRN Quetiapine Fumarate [Seroquel] 350 mg PO BEDTIME 02/07/15 Atorvastatin Calcium [Lipitor] 20 mg PO BEDTIME #30 tablet 07/04/15 Lisinopril [Zestril] 5 mg PO DAILY #30 tablet 07/04/15 Ipratropium/Albuterol Neb [Duoneb] 1 vial NEB RTQ6H PRN #90 vial.neb 11/12/15 Hydrocodone/Acetaminophen [[place] 10-325 Tablet] 10 mg PO Q6HR PRN 05/11/16 Theophylline Anhydrous [Theophylline] 400 mg PO DAILY 02/15/17 Disposition Discussed With: Patient
[2017-02-15] MEDS ORDERED: DILAUDID 1 MG/ML SYRINGE IM STA (22:43)
[2017-02-15] MEDS ORDERED: ZOFRAN 4 MG/2 ML IM STA (22:43)
== END 2017-02-15 23:38 | disposition home or self-care (01) ==
LOC: ED 22:08
DX: R51 Headache (principal); F17.210 Nicotine dependence, cigarettes, uncomplicated
CPT/HCPCS: 96372; 99283

== ENCOUNTER 2017-04-26 15:42 | Inpatient (IN) ==
[2017-04-26] MEDS ORDERED: DUONEB NEB STA (16:07)
--- NOTE | 2017-04-26 16:48 | CT ---
Exam: CT of the chest without intravenous contrast. Comparison: Chest x-ray performed 01/24/2017. Reason for exam: Cough. FINDINGS: The thyroid isthmus appears mildly prominent in size. Emphysematous disease is seen withi n the lung parenchyma with an apical predominance. No pneumothorax, pleural effusion, or focal conso lidation. The aorta is normal in course and caliber. The heart is not enlarged. There is atherosclerotic disease within the aorta and distal arterial vasculature to include the leia nary vessels. The gallbladder has been removed. No suspicious appearing osteoblastic or osteolytic lesions. Impression: 1. No acute imaging findings are seen within the thorax. 2. Emphysematous disease with an apical predominance
--- NOTE | 2017-04-26 17:37 | ED.PDOC ---
General ED Provider: Dr. THU HDZ Chief Complaint: Shortness of Air Stated Complaint: SHORTNESS OF BREATH Time Seen by Physician: 15:50 (SEEN WITH HER SON AND ALLA FROM [facility] AND DOCTOR GREGORY) Mode of Arrival: Walk-In Information Source: Patient Exam Limitations: No limitations Primary Care Provider: LINUS HOLDER Nursing and Triage Documentation Reviewed and Agree: Yes Reviewed sepsis parameters & appropriate labs ordered?: Yes System Inflammatory Response Syndrome: Not Applicable Sepsis Protocol: For patient's 13 years and over: Temp is 96.8 and below OR 101 and greater Pulse >90 BPM Resp >20/minute Acutely Altered Mental Status Are patient's symptoms suggestive of a new infection, such as: -Pneumonia -Skin, Soft Tissue -Endocarditis -UTI -Bone, Joint Infection -Implantable Device -Acute Abdominal Infection -Wound Infection -Meningitis -Blood Stream Catheter Infection -Unknown System Inflammatory Response Syndrome: Not Applicable Respiratory Complaint Exam - Respiratory Complaint/Exam Onset/Duration: 2 DAYS WHEEZING SMOKES 1/2 PACK Symptoms Are: Still present Timing: Intermittent Initial Severity: Moderate Current Severity: Moderate Location: Nose, Throat, Chest Character: Reports: Non-productive cough, Dry cough Aggravating: Reports: URI Alleviating: Reports: Bronchodilators, Spontaneous resolution Associated Signs and Symptoms: Reports: URI, Nasal congestion, Sore throat ( COUGHING YELLOW SPUTUM) Related History: Reports: Similar episode History of Healthcare-Acquired Pneumonia: No Related Surgical History: Reports: None Cardiac Risk Factors: Reports: Smoking, Hypertension, Family History. Denies: Prior [place], CAD, Elevated lipids, Diabetes, CHF Pseudomonas Risk Factors: Reports: Chronic Lung Disease Tuberculosis Risk Factors: Reports: Chronic Resp. Faliure Home Oxygen Use: No Recent Stress Test: No Recent Echo/LV Function: No Current Antibiotic Use: No Current Asthma Medication Use: No Respiratory Distress: Mild Inadequate Respiratory Effort: No Dysphagia Present: No Stridor Present: No JVD Present: No Accessory Muscle Use: Yes Retractions: Diaphragmatic Diminished Breath Sounds: Yes Prolonged Respiration: Expiratory phase Sinus Tenderness: None Grunting Respirations: No Differential Diagnoses: Pneumonia, Bronchitis, Influenza, Lower Resp. Infection Non-Traumatic Chest Pain Syncope: EKG Performed Review of Systems - Review Of Systems Constitutional: Reports: Malaise Eyes: Reports: No symptoms Ears, Nose, Mouth, Throat: Reports: No symptoms Respiratory: Reports: Cough, Short of air, Wheezing Cardiac: Reports: No symptoms GI: Reports: No symptoms : Reports: No symptoms Musculoskeletal: Reports: No symptoms Skin: Reports: No symptoms Neurological: Reports: No symptoms Endocrine: Reports: No symptoms Hematologic/Lymphatic: Reports: No symptoms All Other Systems: Reviewed and Negative Past Medical History - Past Medical History Previously Healthy: Yes Endocrine: Reports: DM 2, Dyslipidemia Cardiovascular: Reports: Hypertension, Other (HEART MURMUR ) Respiratory: Reports: COPD, Asthma Hematological: Reports: None Gastrointestinal: Reports: GERD Genitourinary: Reports: Kidney stones Neuro/Psych: Reports: Migraine, Bipolar Disorder Musculoskeletal: Reports: Arthritis, Back Pain (CHRONIC BACK PAIN ) Cancer: Reports: None Last Menstrual Period: hysterectomy Other Pertinent Past Medical History: LUMBAR SURGERY X2 GB C-SECTIONS X2 tonsillectomy [ End ] - Surgical History General Surgical History: Reports: Hysterectomy (HYSTERECTOMY 1991), ( x2), Cholecystectomy ( *LEFT GALL STONES THAT WERE N), Tonsillectomy, Back Surgery (LUMBAR SURGERY X2 ) - Family History Family History: Reports: Lung (asthma ) - Social History Smoking Status: Current every day smoker, Heavy tobacco smoker Hx Substance Use: No Alcohol Screening: None Physical Exam - Physical Exam Appearance: Ill-appearing Ill-appearing: Mild Pain Distress: Moderate Eyes: TROY, EOMI, Conjunctiva clear ENT: Ears normal, Nose normal, Oropharynx normal Respiratory: Wheezes Cardiovascular: RRR, Pulses normal, No rub, No murmur GI/: Soft, Nontender, No masses, Bowel sounds normal, No Organomegaly Musculoskeletal: Normal strength, ROM intact, No edema, No calf tenderness Skin: Warm, Dry, Normal color Neurological: Sensation intact, Motor intact, Reflexes intact, Cranial nerves intact, Alert, Oriented Psychiatric: Affect appropriate, Mood appropriate Interpretation - Radiology Interpretation Radiology Interpretation By: Radiologist Radiology Results: No acute changes Re-Evaluation - Re-Evaluation Time of Re-Evaluation: 16:30 Status: Improved Vital Signs Stable: Yes Pain Level: 0 Appearance: NAD Lungs: Clear Skin: Warm and Dry Neuro: Alert and Oriented X3 CV: RRR - Re-Evaluation Time of Re-Evaluation: 17:47 Status: Improved Vital Signs Stable: Yes Pain Level: 0 Appearance: NAD Skin: Warm and Dry Neuro: Alert and Oriented X3 CV: RRR Physician Notification - Case Discussed Physician Notified: [id number] Time of Notification: 17:40 Admit To: Inpatient Critical Care Note - Critical Care Note Total Time (mins): 0 Course - Course Hematology/Chemistry: 04/26/17 16:14 04/26/17 16:14 Orders, Labs, Meds: Lab Review 04/26/17 04/26/17 04/26/17 16:14 16:14 16:14 WBC 11.03 H RBC 4.39 Hgb 12.6 Hct 36.8 L MCV 83.8 MCH 28.7 MCHC 34.2 RDW Coeff of Paulina 13.9 Plt Count 221 Immature Gran % (Auto) 0.5 Neut % (Auto) 79.3 Lymph % (Auto) 14.4 [place] % (Auto) 5.7 Eos % (Auto) 0.0 Baso % (Auto) 0.1 Immature Gran # (Auto) 0.1 Neut # (Auto) 8.8 H Lymph # (Auto) 1.6 [place] # (Auto) 0.6 Eos # (Auto) 0.0 Baso # (Auto) 0.0 Sodium 139 Potassium 4.6 Chloride 103 Carbon Dioxide 25 Anion Gap 15.6 BUN 11 Creatinine 0.78 Estimated GFR (MDRD) 77.00 BUN/Creatinine Ratio 14.10 Glucose 143 H Calcium 9.5 Total Bilirubin 0.5 AST 11 L ALT 7 L Alkaline Phosphatase 130 H Total Creatine Kinase 69 Troponin I < 0.0100 Total Protein 6.9 Albumin 3.6 Globulin 3.3 Albumin/Globulin Ratio 1.09 Influ A Molecular Assay Negative by naat Influ B Molecular Assay Negative by naat Orders Category Date Time Status ABG DRAW REQUEST Stat CARDIO 04/26/17 16:07 Ordered NEBULIZER TREATMENT Stat CARDIO 04/26/17 16:07 Ordered ABG Stat LAB 04/26/17 16:06 Ordered CBC W/ AUTO DIFF Stat LAB 04/26/17 16:14 Completed COMPREHENSIVE METABOLIC PANEL Stat LAB 04/26/17 16:14 Completed CREATINE KINASE Stat LAB 04/26/17 16:14 Completed FLU A/B MOLECULAR Stat LAB 04/26/17 16:14 Completed MOLECULAR GROUP A STREP Stat LAB 04/26/17 16:14 Completed TROPONIN I Stat LAB 04/26/17 16:14 Completed Ipratropium/Albuterol Neb [Duoneb] MEDS 04/26/17 16:07 Discontinued 1 vial NEB ONCE STA CT CHEST W/O CONTRAST Stat RADS 04/26/17 16:06 Completed Medications Discontinued Medications Generic Name Dose Route Start Last Admin Trade Name Freq PRN Reason Stop Dose Admin Albuterol/Ipratropium 1 vial 04/26/17 16:07 04/26/17 16:30 Duoneb NEB 04/26/17 16:08 1 vial ONCE STA Administration Vital Signs: Temp Pulse Resp BP Pulse Ox 04/26/17 15:43 99.1 F 141 H 28 H 104/74 96 Departure - Departure Time of Disposition: 17:41 (WITH ALLA FROM [facility] DEPT HAD STATED SHE WOULD LIKE JAYSON CAMILO TO BE HER MD DURING THIS ADMISSION) Disposition: ADMITTED INPATIENT Discharge Problem: Shortness of breath Instructions: Dyspnea (ED), Shortness of Breath (ED) Condition: Good Pt referred to PMD for follow-up: Yes IPMP verified?: No Additional Instructions: Please call your Family Physician as soon as possible to schedule a follow-up appointment. Allergies/Adverse Reactions: Allergies ibuprofen Allergy (Severe, Verified 02/15/17 22:17) CANT BREATHE aspirin Adverse Reaction (Verified 02/15/17 22:17) Unknown blue dye Adverse Reaction (Verified 02/15/17 22:17) Unknown codeine Adverse Reaction (Verified 02/15/17 22:17) Unknown ketorolac tromethamine [From Toradol] Adverse Reaction (Verified 02/15/17 22:17) Unknown levofloxacin [From Levaquin] Adverse Reaction (Verified 02/15/17 22:17) Unknown NSAIDS (Non-Steroidal Anti-Inflamma Adverse Reaction (Verified 02/15/17 22:17) Unknown oxaprozin [From Daypro] Adverse Reaction (Verified 02/15/17 22:17) Unknown Penicillins Adverse Reaction (Verified 02/15/17 22:17) Unknown sulfamethoxazole [From Bactrim] Adverse Reaction (Verified 02/15/17 22:17) Unknown trimethoprim [From Bactrim] Adverse Reaction (Verified 02/15/17 22:17) Unknown Home Medications: Ambulatory Orders Metformin HCl [Fortamet] 500 mg PO BID 12/27/13 Ropinirole HCl [Requip] 4 mg PO BEDTIME 12/27/13 Tiotropium [place] [Spiriva] 1 cap IH DAILY 02/16/14 Albuterol Sulfate [Proair Hfa] 2 puff INH Q4H PRN 08/17/14 Albuterol Sulfate 0.083% Neb [Albuterol 0.083% Neb] 1 vial NEB RTQ4H PRN Quetiapine Fumarate [Seroquel] 400 mg PO BEDTIME 02/07/15 Atorvastatin Calcium [Lipitor] 20 mg PO BEDTIME #30 tablet 07/04/15 Lisinopril [Zestril] 5 mg PO DAILY #30 tablet 07/04/15 Ipratropium/Albuterol Neb [Duoneb] 1 vial NEB RTQ6H PRN #90 vial.neb 11/12/15 Hydrocodone/Acetaminophen [[place] 10-325 Tablet] 10 mg PO Q6HR PRN 05/11/16 Theophylline Anhydrous [Theophylline] 400 mg PO DAILY 02/15/17
[2017-04-26] MEDS ORDERED: SODIUM CHLORIDE 1,000 ML IV SCH (18:00)
[2017-04-26] MEDS: DUONEB NEB SCH ×2 (18:00→22:15)
[2017-04-26] MEDS ORDERED: PROAIR HFA IH PRN (18:45)
[2017-04-26] MEDS ORDERED: ZITHROMAX PO SCH (19:00)
[2017-04-26] MEDS ORDERED: LOVENOX SUBCUT STA (20:01)
[2017-04-26] MEDS ORDERED: NON-FORMULARY MEDICATION (Ropinirole Hcl [Requip] 4 MG) PO SCH (21:00)
[2017-04-26] MEDS ORDERED: NON-FORMULARY MEDICATION (Metformin Hcl [Fortamet] 500 MG) PO SCH (21:00)
[2017-04-26] MEDS ORDERED: QUETIAPINE FUMARATE 400 MG PO SCH (21:00)
[2017-04-26] MEDS ORDERED: NON-FORMULARY MEDICATION (Ropinirole Hcl [Requip] 3 MG) PO SCH (21:07)
[2017-04-26] MEDS ORDERED: SEROQUEL ONE (21:54)
[2017-04-26] MEDS ORDERED: GLUCOPHAGE ONE (21:54)
[2017-04-26] MEDS ORDERED: ROCEPHIN ONE (21:55)
[2017-04-26] MEDS ORDERED: REQUIP ONE (21:55)
[2017-04-26] MEDS: ROCEPHIN 1 GM in SODIUM CHLORIDE 50 ML IV SCH ×2 (22:02→22:17)
[2017-04-26] MEDS: SODIUM CHLORIDE 1,000 ML IV SCH (22:02)
[2017-04-26] MEDS: LIPITOR PO SCH (22:05)
[2017-04-26] MEDS: SOLU-MEDROL 40 MG IVP SCH (22:07)
[2017-04-26] MEDS ORDERED: NICODERM 21 MG TD SCH (22:25)
[2017-04-27] MEDS: DUONEB NEB SCH ×4 (05:25→20:05)
[2017-04-27] MEDS: ZESTRIL PO SCH (08:48)
[2017-04-27] MEDS: THEOPHYLLINE ER 24HR PO SCH (08:48)
[2017-04-27] MEDS: GLUCOPHAGE PO SCH ×2 (08:48→17:22)
[2017-04-27] MEDS: SPIRIVA IH SCH (08:49)
[2017-04-27] MEDS: SOLU-MEDROL 40 MG IVP SCH ×2 (08:50→20:51)
[2017-04-27] MEDS ORDERED: NICODERM 21 MG TD SCH (09:00)
[2017-04-27] MEDS: NORCO 10-325 PO PRN ×2 (10:26→17:22)
[2017-04-27] MEDS ORDERED: CEPACOL SORE THROAT LOZENGE MUCOUSMEMB PRN (15:14)
[2017-04-27] MEDS: REQUIP PO SCH (20:51)
[2017-04-27] MEDS: ROCEPHIN 1 GM in SODIUM CHLORIDE 50 ML IV SCH (20:51)
[2017-04-27] MEDS: ZITHROMAX PO SCH (20:52)
[2017-04-27] MEDS: SEROQUEL PO SCH (20:52)
[2017-04-27] MEDS: LIPITOR PO SCH (20:53)
[2017-04-27] MEDS: NICODERM 21 MG TD SCH (20:53)
[2017-04-27] MEDS: SODIUM CHLORIDE 1,000 ML IV SCH (22:28)
[2017-04-28] MEDS: DUONEB NEB SCH ×2 (05:10→09:15)
[2017-04-28] MEDS: GLUCOPHAGE PO SCH ×2 (08:06→17:55)
[2017-04-28] MEDS: ZESTRIL PO SCH (09:29)
[2017-04-28] MEDS: THEOPHYLLINE ER 24HR PO SCH (09:29)
[2017-04-28] MEDS: SPIRIVA IH SCH (09:29)
[2017-04-28] MEDS: SOLU-MEDROL 40 MG IVP SCH (09:48)
[2017-04-28] MEDS: XOPENEX 1.25 MG NEB SCH ×3 (11:05→23:25)
[2017-04-28] MEDS ORDERED: LOVENOX SUBCUT SCH (15:00)
[2017-04-28] MEDS ORDERED: LOVENOX ONE (15:33)
--- NOTE | 2017-04-28 15:37 | CT ---
EXAM: CTA chest for PE HISTORY: Shortness of breath COMPARISON: CT chest 04/26/2017 and multiple prior chest x-rays TECHNIQUE: CTA of the chest was performed from the lung apices to the upper abdomen after 125 ml of Omnipaque IV contrast was administered using PE protocol. 3-D imaging was also provided. FINDINGS: There is no filling defect in the pulmonary arteries to the level of the subsegmental pulm onary arteries. There is a linear filling defect in the right the subsegmental pulmonary artery sugg estive of web. The heart is normal without signs of ventricular strain. The aorta is unremarkable. T here is no pericardial fluid. The thyroid is unremarkable. There is no pneumothorax or pleural effusion. There is moderate emphysema. There is no consolidation , nodule or mass. The airways are patent. The soft tissues in the upper abdomen demonstrate prior cholecystectomy. The osseous structures are unremarkable. IMPRESSION: 1. No pulmonary embolism. There is a thin linear web in the subsegmental right lower lobe pulmonary artery. 2. Moderate emphysematous disease is stable with no acute consolidation. 2. Prior cholecystectomy.
[2017-04-28] MEDS: BENADRYL PO PRN (15:49)
[2017-04-28] MEDS: NORCO 10-325 PO PRN ×2 (15:50→20:28)
[2017-04-28] MEDS: SOLU-MEDROL 125 MG IVP SCH (20:27)
[2017-04-28] MEDS: SEROQUEL PO SCH (20:28)
[2017-04-28] MEDS: REQUIP PO SCH (20:28)
[2017-04-28] MEDS: SODIUM CHLORIDE 1,000 ML IV SCH (20:28)
[2017-04-28] MEDS: ZITHROMAX PO SCH (20:28)
[2017-04-28] MEDS: LIPITOR PO SCH (20:29)
[2017-04-28] MEDS: NICODERM 21 MG TD SCH (20:30)
[2017-04-28] MEDS: ROCEPHIN 1 GM in SODIUM CHLORIDE 50 ML IV SCH (20:31)
[2017-04-28] MEDS: HUMULIN R SUBCUT PRN (20:32)
[2017-04-28] MEDS: PHENERGAN WITH CODEINE 6.25/10 MG/5 ML PO PRN (20:33)
[2017-04-29] MEDS: BENADRYL PO PRN ×2 (00:12→14:48)
[2017-04-29] MEDS: SOLU-MEDROL 125 MG IVP SCH ×3 (04:37→22:01)
[2017-04-29] MEDS: XOPENEX 1.25 MG NEB SCH ×4 (05:03→23:30)
[2017-04-29] MEDS: HUMULIN R SUBCUT PRN ×4 (05:38→21:56)
--- NOTE | 2017-04-29 09:39 | HP ---
DATE OF SERVICE: 04/26/17 CHIEF COMPLAINT: Shortness of breath and coughing HISTORY OF PRESENT ILLNESS: This is a 51 year old female with multiple problems and COPD, diabetes, hypertension, came to the emergency room with shortness of breath for two days with coughing and congestion with yellow/green phlegm and sinus drainage. Shortness of breath was getting worse taking inhalers and breathing treatment, not feeling better. Starting have the yellow to green color phlegm, sore throat so came to the emergency room. Temperature 99.1. CT chest was negative for pneumonia. Despite giving the dose of Steroids in the ER the patient was still wheezing and coughing so the patient was admitted to the hospital for the IV antibiotics and breathing treatments. REVIEW OF SYSTEMS: CONSTITUTIONAL: No fever, no chills. Weakness and tiredness. HEENT: Normal. Sinus drainage. ENDOCRINE: No weight gain; no weight loss. CVS: No chest pain. No PND, no orthopnea. Shortness of breath. No PND, no orthopnea. RESPIRATORY: Cough, Congestion. No hemoptysis. Yellow/green phlegm GI: No nausea, no vomiting. No abdominal pain. No melena. : No hematuria. No polyuria. MUSCULOSKELETAL: No joint swelling. PSYCHIATRIC: Not anxious. No depression. No suicidal thoughts. No homicidal thoughts. SKIN: Intact, no open lesions. PAST MEDICAL HISTORY: Coronary artery Heart murmur Dyslipidemia COPD Osteoarthritis DJD spine Diabetes Bipolar Depression PAST SURGICAL HISTORY: Cholecystectomy Hysterectomy Two back surgery Two C-sections PERSONAL HISTORY: The patient does smoke. No alcohol and no drugs. Family History is significant for the ND, Diabetes and cancer MEDICATIONS: Requip Metformin Spiriva ProAir Seroquel Albuterol Lipitor Lisinopril DUO NEBS Hydrocodone Theophylline ALLERGIES: Ibuprofen Aspirin Blue Dye Codeine Toradol PHYSICAL EXAMINATION: V/S: Blood pressure 104/74, respiratory rate 28, heart rate 141, temperature 99.1 with saturation 96. HEENT: Atraumatic, normocephalic. No scleral icterus. Pallor . Mucosa dry. NECK: Supple. No JVD, no bruit. No lymphadenopathy. No thyromegaly. HEART: S1, S2 normal. No murmur. No cyanosis or clubbing. No ascites. LUNGS: Decreased and basilar crackles. Expiratory wheeze defused. Clear to auscultation. No rales or rhonchi. ABDOMEN: Soft, nontender. Bowel sounds are active. No CVA tenderness. No rigidity or guarding. EXTREMITIES: No pedal edema. No cyanosis or clubbing MUSCULOSKELETAL: Normal joints, no swelling. NEUROLOGIC: The patient is SKIN: Intact; no open lesions. LYMPHATIC: No lymph nodes palpable. LABS: WBC 11.03, hgb 12.6, hct 36.8, plt count 221, sodium 139, potassium 4.6, chloride 103, bicarb 25, BUN 11, creatinine 0.78, first set of cardiac enzymes are negative. Flu is negative. ABG pH 7.502, pCO2 32.3, pO2 106, D-Dimer 572. Chest chest is no infiltrates ASSESSMENT: 1. COPD exacerbation secondary to bronchitis 2. History of hypertension 3. Dyslipidemia 4. Osteoarthritis 5. DJD spine 6. Rheumatoid arthritis 7. Diabetes Mellitus 8. Depression 9. Anxiety PLAN: 1. Admit the patient to regular floor 2. CBC and CMP today and daily 3. Cardiac enzymes and troponin 4. Iv fluids 5. Azithromycin 6. Rocephin 7. Lovenox 8. Solu-Medrol 40 Q 12 hours 9. Daily I&O's TIME SPENT: MORE THAN 75 minutes MTDD
[2017-04-29] MEDS: SPIRIVA IH SCH (10:07)
[2017-04-29] MEDS: THEOPHYLLINE ER 24HR PO SCH (10:08)
[2017-04-29] MEDS: ZESTRIL PO SCH (10:08)
[2017-04-29] MEDS: PROTONIX PO SCH (10:09)
[2017-04-29] MEDS: LOVENOX SUBCUT SCH (10:11)
[2017-04-29] MEDS: PHENERGAN WITH CODEINE 6.25/10 MG/5 ML PO PRN ×2 (11:16→20:17)
[2017-04-29] MEDS: NORCO 10-325 PO PRN ×2 (11:17→20:18)
[2017-04-29] MEDS: SODIUM CHLORIDE 1,000 ML IV SCH (21:57)
[2017-04-29] MEDS: ROCEPHIN 1 GM in SODIUM CHLORIDE 50 ML IV SCH (22:00)
[2017-04-29] MEDS: LIPITOR PO SCH (22:04)
[2017-04-29] MEDS: REQUIP PO SCH (22:04)
[2017-04-29] MEDS: SEROQUEL PO SCH (22:04)
[2017-04-29] MEDS: NICODERM 21 MG TD SCH (22:05)
[2017-04-30] MEDS: NORCO 10-325 PO PRN ×3 (05:06→20:44)
[2017-04-30] MEDS: PHENERGAN WITH CODEINE 6.25/10 MG/5 ML PO PRN ×3 (05:09→20:45)
[2017-04-30] MEDS: XOPENEX 1.25 MG NEB SCH ×4 (05:14→22:08)
[2017-04-30] MEDS: PROTONIX PO SCH (05:47)
[2017-04-30] MEDS: SOLU-MEDROL 125 MG IVP SCH ×3 (05:48→21:59)
[2017-04-30] MEDS: HUMULIN R SUBCUT PRN ×3 (05:48→21:59)
--- NOTE | 2017-04-30 08:37 | PN ---
DATE OF SERVICE: 04/27/17 SUBJECTIVE: Coughing and congestion is still present. Some wheezing is present. Sugars been elevated because of the steroids. Complains about the lower back pain. Hydrocodone is not helping. REVIEW OF SYSTEMS: CONSTITUTIONAL: No fever, no chills. HEENT: Normal. ENDOCRINE: No weight gain, no weight loss. CVS: No angina symptoms. No CHF symptoms. No palpitations. No atypical chest pain for CAD. No shortness of breath. No PND, no orthopnea. RESPIRATORY: No cough, no hemoptysis. GI: No nausea, no vomiting. No abdominal pain. : No hematuria. No polyuria. MUSCULOSKELETAL: No joint swelling. PSYCHIATRIC: Not anxious. No depression. No suicidal thoughts. No homicidal thoughts. SKIN: Intact. No rash. PHYSICAL EXAMINATION: V/S: Blood pressure 104/74, respiratory rate 18, heart rate 92, temperature 97.8 , saturation 95 on 2 liters. HEENT: Normocephalic, atraumatic. Mucosa dry. NECK: Supple. No JVD, no carotid bruit. No lymphadenopathy. LUNGS:Decreased entry and basilar crackles. Expiratory wheezing is present. Clear to auscultation. No rales or rhonchi. HEART: S1, S2 normal. No S3. No murmur, gallop or regurgitation. ABDOMEN: Soft, nontender. Bowel sounds active. No rigidity. No rebound or guarding. No CVA tenderness. EXTREMITIES: No pedal edema. No clubbing or cyanosis MUSCULOSKELETAL: No joint swelling. NEUROLOGIC: Awake, alert, oriented times three. No focal deficit. LYMPHATIC: No lymph nodes palpable. SKIN: Intact. LABS: Sodium 139, potassium 4.6, chloride 103, bicarb 25, BUN 11, creatinine 0.78, glucose 143. WBC 11.03, hgb 12.6, hct 36.8, plt count 221. ASSESSMENT: 1. COPD exacerbation secondary to the bronchitis 2. Hypertension 3. Dyslipidemia 4. Osteoarthritis 5. DJD spine 6. Cholecystectomy 7. Diabetes 8. Hypertension 9. Rheumatoid arthritis PLAN: 1. Rocephin 1 gram daily 2. Azithromycin 3. Cepacol 4. Phenergan with codeine 5. Solu-Medrol 40mg Q 12 hours 6. Daily I&O's 7. Accu-checks with coverage. TIME SPENT: More than 35 minutes MTDD
--- NOTE | 2017-04-30 09:08 | PN ---
DATE OF SERVICE: 04/28/17 SUBJECTIVE: The patient was admitted with COPD exacerbation and diffused wheezing. The patient started having the sinus tachycardiac since yesterday night; 116, 115, 121, 117. Albuterol was changed to Xopenex. Shortness of breath is still present. The patient did have a slightly elevated D-Dimer 572. CT of the chest was not done to exclude PE and ABG were relatively fine with pH 7.50, pCo2 32.3 , pO2 106. Given worsening shortness of breath and wheezing we will get CT of the chest with PE protocol today. REVIEW OF SYSTEMS: CONSTITUTIONAL: No fever, no chills. HEENT: Normal. ENDOCRINE: No weight gain, no weight loss. CVS: No angina symptoms. No CHF symptoms. No palpitations. No atypical chest pain for CAD. No shortness of breath. No PND, no orthopnea. RESPIRATORY: Cough not able to bring any phlegm, no hemoptysis. GI: No nausea, no vomiting. No abdominal pain. : No hematuria. No polyuria. MUSCULOSKELETAL: No joint swelling. PSYCHIATRIC: Not anxious. No depression. No suicidal thoughts. No homicidal thoughts. SKIN: Intact. No rash. PHYSICAL EXAMINATION: V/S: Blood pressure 117/65, respiratory rate 12, heart rate 120 regular, saturation 98% on 2 liters. HEENT: Normocephalic, atraumatic. Mucosa dry. NECK: Supple. No JVD, no carotid bruit. No lymphadenopathy. LUNGS: Decreased and defused expiratory wheezing all over the lung sharp. Clear to auscultation. No rales or rhonchi. HEART: S1, S2 normal. No S3. No murmur, gallop or regurgitation. Sinus tachycardia 126 to 130. ABDOMEN: Soft, nontender. Bowel sounds active. No rigidity. No rebound or guarding. No CVA tenderness. EXTREMITIES: No pedal edema. No clubbing or cyanosis MUSCULOSKELETAL: No joint swelling. NEUROLOGIC: Awake, alert, oriented times three. No focal deficit. LYMPHATIC: No lymph nodes palpable. SKIN: Intact. Dry. LABS: Sodium 135, potassium 4.9, chloride 102, bicarb 19, BUN 13, creatinine 0.80, WBC 10.86, hgb 11.1, hct 33.1, plt count 201. Three sets of the cardiac enzymes were negative. ASSESSMENT: 1. COPD exacerbation secondary to the bronchitis and tachycardia 2. Hypertension 3. Diabetes 4. Bipolar 5. Depression 6. Restless leg syndrome PLAN: 1. Will get a TSH and Free T4 2. CT chest with PE protocol 3. Increase the Solu-Medrol to 125mg Q 8 hours 4. Lovenox 60mg daily SUBCUT TIME SPENT: More than 50 minutes MTDD
[2017-04-30] MEDS: SPIRIVA IH SCH (09:17)
[2017-04-30] MEDS: ZESTRIL PO SCH (09:18)
[2017-04-30] MEDS: CARDIZEM PO SCH ×2 (09:19→22:00)
[2017-04-30] MEDS: MUCINEX PO SCH ×2 (09:19→22:00)
[2017-04-30] MEDS: LOVENOX SUBCUT SCH (09:20)
[2017-04-30] MEDS: THEOPHYLLINE ER 24HR PO SCH (09:21)
--- NOTE | 2017-04-30 14:46 | PN ---
DATE OF SERVICE: 04/29/17 SUBJECTIVE: The patient been evaluated with the CT with the PE protocol for the sinus tachycardia. The patient's medication been changed. Albuterol was stopped and switched to the Xopenex. Heart rate went down to 101 to 113. Blood pressure is 114/69, respiratory rate 18, heart rate 113 and temperature 97.9 with saturation 97% on 2 liters. REVIEW OF SYSTEMS: CONSTITUTIONAL: No fever, no chills. HEENT: Normal. ENDOCRINE: No weight gain, no weight loss. CVS: No angina symptoms. No CHF symptoms. No palpitations. No atypical chest pain for CAD. No shortness of breath. No PND, no orthopnea. RESPIRATORY: No cough, no hemoptysis. GI: No nausea, no vomiting. No abdominal pain. : No hematuria. No polyuria. MUSCULOSKELETAL: No joint swelling. PSYCHIATRIC: Not anxious. No depression. No suicidal thoughts. No homicidal thoughts. SKIN: Intact. No rash. PHYSICAL EXAMINATION: HEENT: Normocephalic, atraumatic. Mucosa dry. Pallor positive. No icterus. NECK: Supple. No JVD, no carotid bruit. No lymphadenopathy. LUNGS: Defused bilateral wheezing is present. Clear to auscultation. No rales or rhonchi. HEART: S1, S2 normal. No S3. No murmur, gallop or regurgitation. ABDOMEN: Soft, nontender. Bowel sounds active. No rigidity. No rebound or guarding. No CVA tenderness. EXTREMITIES: No pedal edema. No clubbing or cyanosis MUSCULOSKELETAL: No joint swelling. NEUROLOGIC: Awake, alert, oriented times three. No focal deficit. LYMPHATIC: No lymph nodes palpable. SKIN: Intact. LABS: WBC 11.95, hgb 11.2, hct 33.8, plt count 208, sodium 135, potassium 4.7, chloride 99, bicarb 24, BUN 15, creatinine 0.82 and glucose 281. ASSESSMENT: 1. Asthmatic COPD exacerbation secondary to bronchitis 2. Sinus tachycardia 3. Hyperglycemia 4. Uncontrolled diabetes from the steroids 5. History of hyperlipidemia 6. Asthmatic bronchitis 7. Kidney stones 8. Cholecystectomy 9. Rheumatoid arthritis 10.Osteoarthritis 11.Osteoporosis 12.Diabetes 13.Bipolar 14.Depression PLAN: 1. Continue the Xopenex 2. Continue the Lovenox for the DVT prophylaxis 3. Rocephin 1 gram daily 4. Cepacol 5. Phenergan with codeine. TIME SPENT: More than 35 minutes MTDD
--- NOTE | 2017-04-30 14:54 | PN ---
DATE OF SERVICE: 04/30/17 SUBJECTIVE: The patient is still tachycardiac and tachypneic. Minimal exertion is making her so short of breath. Heart rate is going up to 130 sinus. Defused wheeze is present. REVIEW OF SYSTEMS: CONSTITUTIONAL: No fever, no chills. HEENT: Normal. ENDOCRINE: No weight gain, no weight loss. CVS: No angina symptoms. No CHF symptoms. No palpitations. No atypical chest pain for CAD. No shortness of breath. No PND, no orthopnea. RESPIRATORY: No cough, no hemoptysis. GI: No nausea, no vomiting. No abdominal pain. : No hematuria. No polyuria. MUSCULOSKELETAL: No joint swelling. PSYCHIATRIC: Not anxious. No depression. No suicidal thoughts. No homicidal thoughts. SKIN: Intact. No rash. PHYSICAL EXAMINATION: V/S: Blood pressure 134/70, respiratory rate 19, heart rate 114, temperature 97.1 with saturation 96 on 2 liters. HEENT: Normocephalic, atraumatic. Mucosa dry. Pallor positive. No icterus. NECK: Supple. No JVD, no carotid bruit. No lymphadenopathy. LUNGS: Decreased bibasilar crackles. Defused expiratory wheeze. Clear to auscultation. No rales or rhonchi. HEART: S1, S2 normal. No S3. No murmur, gallop or regurgitation. Sinus tachycardia. ABDOMEN: Soft, nontender. Bowel sounds active. No rigidity. No rebound or guarding. No CVA tenderness. EXTREMITIES: No pedal edema. No clubbing or cyanosis MUSCULOSKELETAL: No joint swelling. NEUROLOGIC: Awake, alert, oriented times three. No focal deficit. LYMPHATIC: No lymph nodes palpable. SKIN: Intact. LABS: WBC 11.95,. hgb 11.2, hct 33.8, plt count 208, sodium 135, potassium 4.7, chloride 99, bicarb 24, BUN 16, creatinine 0.82 and glucose 281. ASSESSMENT: 1. COPD exacerbation secondary to the bronchitis 2. Persistent and defused wheezing still 3. Uncontrolled diabetes from the steroids 4. Diabetes 5. Dyslipidemia 6. Osteoarthritis 7. DJD spine 8. Rheumatoid arthritis 9. Bipolar 10.Depression 11.Anxiety PLAN: 1. Rocephin 1 gram daily 2. Phenergan with codeine 3. Lovenox for the DVT prophylaxis 4. Xopenex 5. Solu-Medrol 125mg Q 8 hours 6. Will decrease the Lisinopril from 5mg to 2.5mg 7. Will add Cardizem 30mg twice a day for sinus tachycardia 8. PE been ruled out 9. TSH and Free T4 been checked. TSH has been low and will check Free T3 TIME SPENT: More than 35 minutes MTDD
[2017-04-30] MEDS: GLUCOPHAGE PO SCH (17:31)
[2017-04-30] MEDS: ROCEPHIN 1 GM in SODIUM CHLORIDE 50 ML IV SCH (20:45)
[2017-04-30] MEDS: NICODERM 21 MG TD SCH (21:59)
[2017-04-30] MEDS: REQUIP PO SCH (21:59)
[2017-04-30] MEDS: LIPITOR PO SCH (22:00)
[2017-04-30] MEDS: SEROQUEL PO SCH (22:00)
[2017-05-01] MEDS: SODIUM CHLORIDE 1,000 ML IV SCH (00:50)
[2017-05-01] MEDS: XOPENEX 1.25 MG NEB SCH ×4 (05:08→23:05)
[2017-05-01] MEDS: PROTONIX PO SCH (06:05)
[2017-05-01] MEDS: SOLU-MEDROL 125 MG IVP SCH ×3 (06:06→21:13)
[2017-05-01] MEDS: HUMULIN R SUBCUT PRN ×4 (06:30→21:04)
[2017-05-01] MEDS: SPIRIVA IH SCH (09:26)
[2017-05-01] MEDS: ZESTRIL PO SCH (09:27)
[2017-05-01] MEDS: LOVENOX SUBCUT SCH (09:27)
[2017-05-01] MEDS: MUCINEX PO SCH ×2 (09:28→21:04)
[2017-05-01] MEDS: CARDIZEM PO SCH ×2 (09:28→21:03)
[2017-05-01] MEDS: THEOPHYLLINE ER 24HR PO SCH (09:28)
[2017-05-01] MEDS: GLUCOPHAGE PO SCH ×2 (09:29→17:16)
[2017-05-01] MEDS: NORCO 10-325 PO PRN ×2 (12:00→21:04)
[2017-05-01] MEDS: PHENERGAN WITH CODEINE 6.25/10 MG/5 ML PO PRN ×2 (12:00→21:04)
--- NOTE | 2017-05-01 12:32 | DI ---
EXAM: PA and lateral views of the chest HISTORY: Cough. COMPARISON: Chest x-ray 01/24/[address] chest 04/28/2017 FINDINGS: The cardiomediastinal silhouette is normal. There is no pneumothorax or pleural effusion. There is no consolidation, nodule or mass. The lungs are hyperinflated. The osseous structures de monstrate degenerative disease. IMPRESSION: Hyperinflation suggestive of chronic obstructive pulmonary disease with no acute consoli dation.
[2017-05-01] MEDS: SEROQUEL PO SCH (21:03)
[2017-05-01] MEDS: ROCEPHIN 1 GM in SODIUM CHLORIDE 50 ML IV SCH (21:03)
[2017-05-01] MEDS: REQUIP PO SCH (21:03)
[2017-05-01] MEDS: LIPITOR PO SCH (21:03)
[2017-05-01] MEDS: NICODERM 21 MG TD SCH (21:16)
[2017-05-02] MEDS: SODIUM CHLORIDE 1,000 ML IV SCH (01:46)
[2017-05-02] MEDS: XOPENEX 1.25 MG NEB SCH ×2 (05:31→11:12)
[2017-05-02] MEDS: HUMULIN R SUBCUT PRN ×2 (05:39→10:57)
[2017-05-02] MEDS: PROTONIX PO SCH (05:41)
[2017-05-02] MEDS: SOLU-MEDROL 125 MG IVP SCH ×2 (05:41→13:44)
[2017-05-02] MEDS: NORCO 10-325 PO PRN (07:43)
[2017-05-02] MEDS: PHENERGAN WITH CODEINE 6.25/10 MG/5 ML PO PRN (07:43)
[2017-05-02] MEDS: SPIRIVA IH SCH (08:42)
[2017-05-02] MEDS: GLUCOPHAGE PO SCH (08:42)
[2017-05-02] MEDS: ZESTRIL PO SCH (08:42)
[2017-05-02] MEDS: LOVENOX SUBCUT SCH (08:43)
[2017-05-02] MEDS: CARDIZEM PO SCH (08:43)
[2017-05-02] MEDS: MUCINEX PO SCH (08:43)
[2017-05-02] MEDS: THEOPHYLLINE ER 24HR PO SCH (08:43)
[2017-05-02 09:51] VITALS: BP 128/74; TEMP 97.9
--- NOTE | 2017-05-24 15:04 | DS ---
DATE OF SERVICE: 05/02/17 FINAL DIAGNOSIS: 1. COPD EXACERBATION SECONDARY TO BRONCHITIS 2. SINUS TACHYCARDIA FROM MEDICATIONS AND COPD 3. CORONARY ARTERY DISEASE 4. HEART MURMUR 5. DYSLIPIDEMIA 6. DIABETES MELLITUS 7. OSTEOARTHRITIS 8. DJD SPINE 9. BIPOLAR DISORDER 10. DEPRESSION 11. HYSTERECTOMY 12. BACK SURGERY 13. 14. CHOLECYSTECTOMY DISCHARGE INSTRUCTIONS: Followup appointment with Dr. Merino at [facility] on 05/08/17 at 2: 30 p.m. MEDICATIONS AT DISCHARGE: [place] 10 mg q.6hr p.r.n. Lipitor Duonebs Zestril Metformin Seroquel Requip Theophylline Spiriva Do not take Albuterol Nebs Please note reduction in Lisinopril dose 2.5 mg p.o. daily NEW PRESCRIPTIONS: Symbicort 160-4.5 mcg IH take two puffs twice daily Keflex 500 mg one capsule by mouth twice daily for 5 days Medrol Dosepak take as directed with food Cardizem 30 mg one tablet by mouth twice daily Nicoderm Patch DIET INSTRUCTIONS: Diabetic and Heart Healthy ACTIVITY: Get plenty of rest at home. Gradually increase your activity level according to your toleration. SMOKING: Current every day smoker DISEASE SPECIFIC EDUCATION: COPD needing pneumonia vaccination Antibiotic use and diarrhea discussed Smoking cessation and help discussed; smoking and risk of lung cancer discussed. The patient verbalized understanding. HOSPITAL COURSE: This is a 51-year-old female with COPD, continued nicotine use came to the emergency room with cough, congestion and shortness of breath. As I was seeing another patient in the emergency room, this patient saw me and stated that she thought she should be admitted under me and that is how the patient is admitted to myself. She was started on Rocephin, Solu-Medrol initially 40 q.12 but the patient was still having wheezing and shortness of breath. By the next day, Solu -Medrol was increased to 125 mg q.8hr. Rocephin continued. Lovenox was given 60 SubQ daily. The patient was sinus tachy and D. dimer was slightly elevated at 572. ABGs showed pH 7.502, pc02 32.3, p02 106. Question of PE was there so CT of chest with PE protocol was done which did not show any PE. Because of the sinus tachycardia, T4, T3 were done which shows subclinical hyperthyroidism. The Lisinopril was decreased from 5 mg to 2.5 mg and started on Cardizem 30 mg b.i.d. to control the heart rate. Slowly then, heart rate came down from 120's, 130's, 105 and 106. Blood pressure maintained well. The patient still had diffuse wheeze all over the lung sharp, Up and about walking again makes her short of breath. I tried to evaluate her for oxygen but she did not qualify. As the patient was clinically improved today, the patient was discharged home. TIME SPENT: MORE THAN 65 MINUTES MTDD
--- NOTE | 2017-05-24 15:13 | PN ---
DATE OF SERVICE: 05/01/17 SUBJECTIVE: The patient is a 51-year-old female who is still coughing and congested. She has shortness of breath on minimal exertion, wheezing diffusely. REVIEW OF SYSTEMS: CONSTITUTIONAL: No fever, no chills. HEENT: Normal. ENDOCRINE: No weight gain, no weight loss. CVS: No angina symptoms. No CHF symptoms. No palpitations. No atypical chest pain for CAD. Shortness of breath on minimal exertion. No PND, no orthopnea. RESPIRATORY: Cough and congestion with wheeze. No hemoptysis. GI: No nausea, no vomiting. No abdominal pain. : No hematuria. No polyuria. MUSCULOSKELETAL: No joint swelling. PSYCHIATRIC: Not anxious. No depression. No suicidal thoughts. No homicidal thoughts. SKIN: Intact. No rash. PHYSICAL EXAMINATION: V/S: BP 101/54, respiratory rate 16, heart rate 93, temperature 97.6. HEENT: Normocephalic, atraumatic. Mucosa dry. Pallor positive. No icterus. NECK: Supple. No JVD, no carotid bruit. No lymphadenopathy. LUNGS: Bilateral expiratory wheeze present diffusely. Clear to auscultation. No rales or rhonchi. HEART: S1, S2 normal. No S3. No murmur, gallop or regurgitation. ABDOMEN: Soft, nontender. Bowel sounds active. No rigidity. No rebound or guarding. No CVA tenderness. EXTREMITIES: No pedal edema. No clubbing or cyanosis. MUSCULOSKELETAL: No joint swelling. NEUROLOGIC: Awake, alert, oriented times three. No focal deficit. LYMPHATIC: No lymph nodes palpable. SKIN: Intact. LABS: White count 11.95, hemoglobin 11.2, hematocrit 33.8, platelet count 208. Sodium 135, potassium 4.7, chloride 99, bicarb 24, BUN 15, creatinine 0.82, glucose 281. ASSESSMENT: 1. COPD EXACERBATION SECONDARY TO BRONCHITIS 2. SINUS TACHYCARDIA WHICH IS BETTER AFTER STARTING CARDIZEM YESTERDAY, BELOW 100 NOW. 3. DIABETES MELLITUS 4. HYPERTENSION 5. DYSLIPIDEMIA PLAN: 1. Will get chest x-ray 2. Continue Rocephin 3. Cardizem 30 b.i.d. 4. Solu-Medrol 125 mg q.8 5. Out of bed to chair 6. Activity as tolerated TIME SPENT: More than 35 minutes MTDD
== END 2017-05-02 14:32 | disposition home or self-care (01) | DRG 192 ==
LOC: ED 15:42 → MEDSURG B 18:19
PROVIDERS: ADMIT Emergency Medicine; ATTEND Emergency Medicine
DX: J44.1 Chronic obstructive pulmonary disease with (acute) exacerbation (principal); J44.0 Chronic obstructive pulmonary disease with (acute) lower respiratory infection; R06.02 Shortness of breath; R79.1 Abnormal coagulation profile; R00.0 Tachycardia, unspecified; J20.9 Acute bronchitis, unspecified; I25.10 Atherosclerotic heart disease of native coronary artery without angina pectoris; R01.1 Cardiac murmur, unspecified; E11.9 Type 2 diabetes mellitus without complications; F17.210 Nicotine dependence, cigarettes, uncomplicated; R05 Cough; F31.9 Bipolar disorder, unspecified; F32.9 Major depressive disorder, single episode, unspecified; E78.5 Hyperlipidemia, unspecified; M19.90 Unspecified osteoarthritis, unspecified site; M47.9 Spondylosis, unspecified; M54.5 Low back pain; M06.9 Rheumatoid arthritis, unspecified; Z79.84 Long term (current) use of oral hypoglycemic drugs; Z79.899 Other long term (current) drug therapy
CPT/HCPCS: 36415; 80053; 80198; 82550; 82803; 82962; 83880; 84439; 84443; 84481; 84484; 85025; 85379; 87502; 87651; 93005; 93010; 94640; 94761; 99284

== ENCOUNTER 2017-08-02 02:25 | Emergency (ER) | payer OTHER ==
[2017-08-02 02:33] VITALS: BP 114/75; TEMP 97.6; BMI 18.8
[2017-08-02] MEDS ORDERED: SOLU-MEDROL 125 MG IVP STA (02:49)
[2017-08-02] MEDS ORDERED: XOPENEX 1.25 MG NEB STA (02:50)
[2017-08-02] MEDS ORDERED: DUONEB NEB STA (02:50)
[2017-08-02] MEDS ORDERED: ROCEPHIN 1 GM in SODIUM CHLORIDE 50 ML IV STA (02:50)
[2017-08-02] MEDS ORDERED: SOLU-MEDROL 125 MG ONE (02:51)
[2017-08-02] MEDS ORDERED: ROCEPHIN ONE (02:55)
--- NOTE | 2017-08-02 03:57 | CT ---
EXAM: CT scan thorax without contrast HISTORY: Cough wheezing COMPARISON: CT scan thorax 04/28/2017 FINDINGS: The contiguous axial images obtained through the thorax without contrast utilizing 5-mm co llimation. Sagittal and coronal reconstructions were imaged and reviewed.. The thoracic inlet is un remarkable. There is no evidence of mediastinal or axillary lymphadenopathy. The heart is normal in size with minimal coronary artery calcification. Mild emphysematous changes are noted.. There is n o evidence of infiltrate or effusion. There has been prior cholecystectomy. There is a punctate non obstructive calculus upper pole left kidney. IMPRESSION: Emphysematous changes without evidence of active pulmonary disease. Normal-sized cardiac silhouette with minimal coronary artery calcification. Nonobstructive left-sided nephrolithiasis
--- NOTE | 2017-08-02 04:16 | ED.PDOC ---
General ED Provider: Dr. JACOB PELAEZ-ER Chief Complaint: Shortness of Air Stated Complaint: barb had trouble breathing for 3 days Time Seen by Physician: 02:30 Mode of Arrival: Wheelchair Information Source: Patient, Family Exam Limitations: No limitations Primary Care Provider: LINUS HOLDER Nursing and Triage Documentation Reviewed and Agree: Yes Reviewed sepsis parameters & appropriate labs ordered?: Yes System Inflammatory Response Syndrome: Not Applicable Sepsis Protocol: For patient's 13 years and over: Temp is 96.8 and below OR 101 and greater Pulse >90 BPM Resp >20/minute Acutely Altered Mental Status Are patient's symptoms suggestive of a new infection, such as: -Pneumonia -Skin, Soft Tissue -Endocarditis -UTI -Bone, Joint Infection -Implantable Device -Acute Abdominal Infection -Wound Infection -Meningitis -Blood Stream Catheter Infection -Unknown Respiratory Complaint Exam - Respiratory Complaint/Exam Onset/Duration: 3 days Symptoms Are: Still present Timing: Constant Initial Severity: Mild Current Severity: Moderate Location: Chest Character: Reports: Non-productive cough Alleviating: Reports: None Associated Signs and Symptoms: Reports: Dyspnea, Wheezing. Denies: Rapid breathing Related History: Reports: Similar episode History of Healthcare-Acquired Pneumonia: No Tuberculosis Risk Factors: Reports: None Status Asthmaticus Risk Factors: Reports: None Home Oxygen Use: Yes Recent Stress Test: No Recent Echo/LV Function: No Current Antibiotic Use: No Current Asthma Medication Use: No Respiratory Distress: None Inadequate Respiratory Effort: No Dysphagia Present: No Stridor Present: No JVD Present: No Accessory Muscle Use: No Retractions: Not Present Diminished Breath Sounds: No Sinus Tenderness: None Kussmaul Respirations: No Differential Diagnoses: Asthma, COPD Exacerbation Non-Traumatic Chest Pain Syncope: EKG Performed Review of Systems - Review Of Systems Constitutional: Reports: No symptoms Eyes: Reports: No symptoms Ears, Nose, Mouth, Throat: Reports: No symptoms Respiratory: Reports: Cough, Short of air Cardiac: Reports: No symptoms GI: Reports: No symptoms : Reports: No symptoms Musculoskeletal: Reports: No symptoms Skin: Reports: No symptoms Neurological: Reports: No symptoms Endocrine: Reports: No symptoms Hematologic/Lymphatic: Reports: No symptoms All Other Systems: Reviewed and Negative Past Medical History - Past Medical History Previously Healthy: Yes Endocrine: Reports: DM 2, Dyslipidemia Cardiovascular: Reports: Hypertension, Other (HEART MURMUR ) Respiratory: Reports: COPD, Asthma Hematological: Reports: None Gastrointestinal: Reports: GERD Genitourinary: Reports: Kidney stones Neuro/Psych: Reports: Migraine, Bipolar Disorder Musculoskeletal: Reports: Arthritis, Back Pain (CHRONIC BACK PAIN ) Cancer: Reports: None Last Menstrual Period: PT HAS HAD A HYSTERECTOMY Other Pertinent Past Medical History: LUMBAR SURGERY X2 GB C-SECTIONS X2 tonsillectomy [ End ] - Surgical History General Surgical History: Reports: Hysterectomy (HYSTERECTOMY 1991), ( x2), Cholecystectomy ( *LEFT GALL STONES THAT WERE N), Tonsillectomy, Back Surgery (LUMBAR SURGERY X2 ) - Family History Family History: Reports: Lung (asthma ) - Social History Smoking Status: Current every day smoker, Heavy tobacco smoker Hx Substance Use: No Alcohol Screening: None - Immunizations Tetanus Shot up to Date: Yes Physical Exam - Physical Exam Appearance: Well-appearing, No pain distress, Well-nourished Eyes: TROY, EOMI, Conjunctiva clear ENT: Ears normal, Nose normal, Oropharynx normal Neck: Supple Respiratory: Wheezes Cardiovascular: RRR GI/: Soft, Nontender, No masses, Bowel sounds normal, No Organomegaly Musculoskeletal: Normal strength, ROM intact, No edema, No calf tenderness Skin: Warm, Dry, Normal color Neurological: Sensation intact, Motor intact, Reflexes intact, Cranial nerves intact, Alert, Oriented Psychiatric: Affect appropriate, Mood appropriate, Anxious Interpretation - Radiology Interpretation Radiology Interpretation By: Radiologist Radiology Results: Negative Exam Interpreted: CT Scan - EKG Interpretation Time of EKG #1: 04:16 Rate: Normal Rhythm: Sinus Ectopy: None [place]: NL ST Segment: Normal Interpretation: nsr Critical Care Note - Critical Care Note Total Time (mins): 0 Course - Course Hematology/Chemistry: 08/02/17 03:09 08/02/17 03:09 Orders, Labs, Meds: Lab Review 08/02/17 08/02/17 08/02/17 02:48 03:09 03:09 WBC 12.33 H RBC 4.63 Hgb 12.7 Hct 38.3 MCV 82.7 MCH 27.4 MCHC 33.2 RDW Coeff of Paulina 13.3 Plt Count 280 Immature Gran % (Auto) 0.2 Neut % (Auto) 51.6 Lymph % (Auto) 42.7 [place] % (Auto) 5.3 Eos % (Auto) 0.0 Baso % (Auto) 0.2 Immature Gran # (Auto) 0.0 Neut # (Auto) 6.4 Lymph # (Auto) 5.3 H [place] # (Auto) 0.7 Eos # (Auto) 0.0 Baso # (Auto) 0.0 Puncture Site Lb O2 Saturation 90.0 L ABG pH 7.50 H ABG pCO2 34.7 L ABG pO2 68.0 L ABG HCO3 27.1 H ABG Total CO2 28 ABG Base Excess 4 H Quentin Test + FiO2 % 21.0 Sodium 139 Potassium 3.8 Chloride 102 Carbon Dioxide 19 L Anion Gap 21.8 BUN 13 Creatinine 0.60 Estimated GFR (MDRD) 105.00 BUN/Creatinine Ratio 21.66 Glucose 154 H Calcium 9.7 Total Bilirubin 0.1 AST 13 L ALT 8 L Alkaline Phosphatase 186 H Total Creatine Kinase Troponin I Total Protein 7.4 Albumin 4.5 Globulin 2.9 Albumin/Globulin Ratio 1.55 08/02/17 03:09 WBC RBC Hgb Hct MCV MCH MCHC RDW Coeff of Paulina Plt Count Immature Gran % (Auto) Neut % (Auto) Lymph % (Auto) [place] % (Auto) Eos % (Auto) Baso % (Auto) Immature Gran # (Auto) Neut # (Auto) Lymph # (Auto) [place] # (Auto) Eos # (Auto) Baso # (Auto) Puncture Site O2 Saturation ABG pH ABG pCO2 ABG pO2 ABG HCO3 ABG Total CO2 ABG Base Excess Quentin Test FiO2 % Sodium Potassium Chloride Carbon Dioxide Anion Gap BUN Creatinine Estimated GFR (MDRD) BUN/Creatinine Ratio Glucose Calcium Total Bilirubin AST ALT Alkaline Phosphatase Total Creatine Kinase 62 Troponin I < 0.0100 Total Protein Albumin Globulin Albumin/Globulin Ratio Orders Category Date Time Status ABG DRAW REQUEST Stat CARDIO 08/02/17 02:48 Completed EKG-(ED ONLY) Stat CARDIO 08/02/17 02:48 Completed NEBULIZER TREATMENT Stat CARDIO 08/02/17 02:51 Completed Construction Scheduler [ED WHEEL TRUING MACHINE TENDER APPLIED] .ONCE EMERGENCY 08/02/17 02:49 Active ED IV/MEDIPORT/POWERPORT .ONCE EMERGENCY 08/02/17 02:49 Active ABG Stat LAB 08/02/17 02:48 Completed B-TYPE NATRIURETIC PEPTIDE Stat LAB 08/02/17 02:49 Ordered BLOOD CULTURE (ED ONLY) Stat LAB 08/02/17 03:09 Received CBC W/ AUTO DIFF Stat LAB 08/02/17 03:09 Completed COMPREHENSIVE METABOLIC PANEL Stat LAB 08/02/17 03:09 Completed CREATINE KINASE Stat LAB 08/02/17 03:09 Completed TROPONIN I Stat LAB 08/02/17 03:09 Completed 0.9 % Sodium Chloride [Saline Flush] MEDS 08/02/17 02:49 Ordered 1 syr IVF PRN PRN Ceftriaxone Sodium [Rocephin] MEDS 08/02/17 02:55 Discontinued 1 gm .ROUTE .STK-MED ONE Ceftriaxone Sodium [Rocephin] 1 gm MEDS 08/02/17 02:50 Discontinued 0.9 % Sodium Chloride [Sodium Chloride] 50 ml IV ONCE Ipratropium/Albuterol Neb [Duoneb] MEDS 08/02/17 02:50 Discontinued 1 vial NEB ONCE STA Levalbuterol HCl [Xopenex 1.25 mg] MEDS 08/02/17 02:50 Discontinued 1 vial NEB ONCE STA Methylprednisolone Sod Succ/Pf [Solu-Medrol 125 mg] MEDS 08/02/17 02:51 Discontinued 125 mg .ROUTE .STK-MED ONE Methylprednisolone Sod Succ/Pf [Solu-Medrol 125 mg] MEDS 08/02/17 02:49 Discontinued 125 mg IVP ONCE STA CT CHEST W/O CONTRAST Stat RADS 08/02/17 02:51 Completed Medications Generic Name Dose Route Start Last Admin Trade Name Freq PRN Reason Stop Dose Admin Sodium Chloride 1 syr 08/02/17 02:49 08/02/17 03:01 Saline Flush IVF 1 syr PRN PRN Administration To flush IV Discontinued Medications Generic Name Dose Route Start Last Admin Trade Name Freq PRN Reason Stop Dose Admin Albuterol/Ipratropium 1 vial 08/02/17 02:50 08/02/17 03:05 Duoneb NEB 08/02/17 02:51 1 vial ONCE STA Administration Ceftriaxone Sodium 1 gm/ 50 mls @ 75 mls/hr 08/02/17 02:50 08/02/17 03:25 Sodium Chloride IV 08/02/17 03:29 75 mls/hr ONCE STA Administration Levalbuterol HCl 1 vial 08/02/17 02:50 08/02/17 02:53 Xopenex 1.25 Mg NEB 08/02/17 02:51 1 vial ONCE STA Administration Methylprednisolone Sodium Succinate 125 mg 08/02/17 02:49 08/02/17 03:00 Solu-Medrol 125 Mg IVP 08/02/17 02:50 125 mg ONCE STA Administration Vital Signs: Temp Pulse Resp BP Pulse Ox 08/02/17 02:28 97.6 F 116 H 40 H 114/75 92 L Departure - Departure Time of Disposition: 04:16 Disposition: AMA Discharge Problem: Asthma attack Qualifiers: Asthma severity: mild Asthma persistence: unspecified Qualified Code(s): J45.901 - Unspecified asthma with (acute) exacerbation COPD (chronic obstructive pulmonary disease) Qualifiers: COPD type: unspecified COPD Qualified Code(s): J44.9 - Chronic obstructive pulmonary disease, unspecified Instructions: COPD (Chronic Obstructive Pulmonary Disease) (ED) Condition: Stable Pt referred to PMD for follow-up: Yes IPMP verified?: No Additional Instructions: f/u wtih pcp or return here prn Allergies/Adverse Reactions: Allergies ibuprofen Allergy (Severe, Verified 08/02/17 02:34) CANT BREATHE aspirin Adverse Reaction (Verified 08/02/17 02:34) Unknown blue dye Adverse Reaction (Verified 08/02/17 02:34) Unknown ketorolac tromethamine [From Toradol] Adverse Reaction (Verified 08/02/17 02:34) Unknown levofloxacin [From Levaquin] Adverse Reaction (Verified 08/02/17 02:34) Unknown NSAIDS (Non-Steroidal Anti-Inflamma Adverse Reaction (Verified 08/02/17 02:34) Unknown oxaprozin [From Daypro] Adverse Reaction (Verified 08/02/17 02:34) Unknown sulfamethoxazole [From Bactrim] Adverse Reaction (Verified 08/02/17 02:34) Unknown trimethoprim [From Bactrim] Adverse Reaction (Verified 08/02/17 02:34) Unknown Home Medications: Ambulatory Orders Metformin HCl [Fortamet] 500 mg PO BID 12/27/13 Ropinirole HCl [Requip] 3 mg PO BEDTIME 12/27/13 Tiotropium [place] [Spiriva] 1 cap IH DAILY 02/16/14 Albuterol Sulfate [Proair Hfa] 2 puff INH Q4H PRN 08/17/14 Quetiapine Fumarate [Seroquel] 400 mg PO BEDTIME 02/07/15 Atorvastatin Calcium [Lipitor] 20 mg PO BEDTIME #30 tablet 07/04/15 Ipratropium/Albuterol Neb [Duoneb] 1 vial NEB RTQ6H PRN #90 vial.neb 11/12/15 Hydrocodone/Acetaminophen [[place] 10-325 Tablet] 10 mg PO Q6HR PRN 05/11/16 Theophylline Anhydrous [Theophylline] 400 mg PO DAILY 02/15/17 Budesonide/Formoterol Fumarate [Symbicort 160-4.5 Mcg Inhaler] 2 puff IH BID #1 hfa.aer.ad 05/02/17 Lisinopril [Zestril] 2.5 mg PO DAILY #30 tablet 05/02/17 Fluticasone Propionate 110 Mcg [Flovent Hfa 110 Mcg] 1 puff IH DAILY 08/02/17 Fluticasone/Vilanterol [Breo Ellipta Inhaler] 1 each IH DAILY 08/02/17 Disposition Discussed With: Patient, Family
== END 2017-08-02 04:35 | disposition left against medical advice (07) ==
LOC: ED 02:25
DX: J45.901 Unspecified asthma with (acute) exacerbation (principal); J44.9 Chronic obstructive pulmonary disease, unspecified; F17.210 Nicotine dependence, cigarettes, uncomplicated; E11.9 Type 2 diabetes mellitus without complications; E78.5 Hyperlipidemia, unspecified; I10 Essential (primary) hypertension; R06.02 Shortness of breath; Z79.899 Other long term (current) drug therapy
CPT/HCPCS: 36415; 80053; 82550; 82803; 83880; 84484; 85025; 87040; 93005; 93010; 94640; 96365; 96375; 99284

== ENCOUNTER 2017-08-14 16:32 | Emergency (ER) ==
[2017-08-14] MEDS ORDERED: SOLU-MEDROL 125 MG IVP STA (16:38)
[2017-08-14 16:44] VITALS: BP 130/70; TEMP 98.1; BMI 19.2
--- NOTE | 2017-08-14 17:01 | ED.PDOC ---
General ED Provider: Dr. JACOB MARTINES MD Chief Complaint: Shortness of Air Stated Complaint: SOB Time Seen by Physician: 16:45 Mode of Arrival: Wheelchair Information Source: Patient, Family Exam Limitations: No limitations Primary Care Provider: LINUS HOLDER Referred to ED by: PCP Nursing and Triage Documentation Reviewed and Agree: Yes Reviewed sepsis parameters & appropriate labs ordered?: Yes System Inflammatory Response Syndrome: Not Applicable Sepsis Protocol: For patient's 13 years and over: Temp is 96.8 and below OR 101 and greater Pulse >90 BPM Resp >20/minute Acutely Altered Mental Status Are patient's symptoms suggestive of a new infection, such as: -Pneumonia -Skin, Soft Tissue -Endocarditis -UTI -Bone, Joint Infection -Implantable Device -Acute Abdominal Infection -Wound Infection -Meningitis -Blood Stream Catheter Infection -Unknown Respiratory Complaint Exam - Shortness of Air Complaint/Exam Onset/Duration: days Symptoms Are: Still present Timing: Constant Initial Severity: Mild Current Severity: Moderate Character: Reports: Dyspnea at rest Aggravating: Reports: Recumbent position Alleviating: Reports: None Related History: Reports: Similar episode Pulmonary Embolism Risk Factors: Reports: None Cardiac Risk Factors: Reports: None Pseudomonas Risk Factors: Reports: None Tuberculosis Risk Factors: Reports: None Home Oxygen Use: Yes (at night 2L/min) Recent Stress Test: No Recent Echo/LV Function: No Respiratory Distress: Mild (getting worse) Review of Systems - Review Of Systems Constitutional: Reports: No symptoms Eyes: Reports: No symptoms Ears, Nose, Mouth, Throat: Reports: No symptoms Respiratory: Reports: Short of air Cardiac: Reports: No symptoms GI: Reports: No symptoms : Reports: No symptoms Musculoskeletal: Reports: No symptoms Skin: Reports: No symptoms Neurological: Reports: No symptoms Endocrine: Reports: No symptoms Hematologic/Lymphatic: Reports: No symptoms All Other Systems: Reviewed and Negative Past Medical History - Past Medical History Previously Healthy: Yes Endocrine: Reports: DM 2, Dyslipidemia Cardiovascular: Reports: Hypertension, Other (HEART MURMUR ) Respiratory: Reports: COPD, Asthma Hematological: Reports: None Gastrointestinal: Reports: GERD Genitourinary: Reports: Kidney stones Neuro/Psych: Reports: Migraine, Bipolar Disorder Musculoskeletal: Reports: Arthritis, Back Pain (CHRONIC BACK PAIN ) Cancer: Reports: None Last Menstrual Period: na Other Pertinent Past Medical History: LUMBAR SURGERY X2 GB C-SECTIONS X2 tonsillectomy [ End ] - Surgical History General Surgical History: Reports: Hysterectomy (HYSTERECTOMY 1991), ( x2), Cholecystectomy ( *LEFT GALL STONES THAT WERE N), Tonsillectomy, Back Surgery (LUMBAR SURGERY X2 ) - Family History Family History: Reports: Lung (asthma ) - Social History Smoking Status: Current some day smoker Hx Substance Use: No Alcohol Screening: None - Immunizations Tetanus Shot up to Date: Yes Physical Exam - Physical Exam Appearance: Ill-appearing Ill-appearing: Moderate Pain Distress: None Eyes: TROY, EOMI, Conjunctiva clear ENT: Ears normal, Nose normal, Oropharynx normal Neck: Supple Respiratory: Breath sounds clear, Breath sounds equal, Wheezes Cardiovascular: RRR, Pulses normal, No rub, No murmur GI/: Soft, Nontender, No masses, Bowel sounds normal, No Organomegaly Musculoskeletal: Normal strength, ROM intact, No edema, No calf tenderness Skin: Warm, Dry, Normal color Neurological: Sensation intact, Motor intact, Reflexes intact, Cranial nerves intact, Alert, Oriented Psychiatric: Affect appropriate, Mood appropriate Critical Care Note - Critical Care Note Total Time (mins): 0 Course - Course Hematology/Chemistry: 08/14/17 16:50 08/14/17 16:50 Orders, Labs, Meds: Lab Review 08/14/17 08/14/17 08/14/17 16:40 16:50 16:50 WBC 10.32 H RBC 4.75 Hgb 12.8 Hct 39.0 MCV 82.1 MCH 26.9 L MCHC 32.8 RDW Coeff of Paulina 13.2 Plt Count 261 Immature Gran % (Auto) 0.4 Neut % (Auto) 83.3 Lymph % (Auto) 12.6 [place] % (Auto) 3.6 Eos % (Auto) 0.0 Baso % (Auto) 0.1 Immature Gran # (Auto) 0.0 Neut # (Auto) 8.6 H Lymph # (Auto) 1.3 [place] # (Auto) 0.4 Eos # (Auto) 0.0 Baso # (Auto) 0.0 Puncture Site O2 Saturation ABG pH ABG pCO2 ABG pO2 ABG HCO3 ABG Total CO2 ABG Base Excess Quentin Test FiO2 % Sodium 138 Potassium 4.3 Chloride 101 Carbon Dioxide 23 Anion Gap 18.3 BUN 12 Creatinine 0.76 Estimated GFR (MDRD) 80.00 BUN/Creatinine Ratio 15.78 Glucose 131 H Calcium 9.8 Total Creatine Kinase 40 Troponin I < 0.0100 08/14/17 17:32 WBC RBC Hgb Hct MCV MCH MCHC RDW Coeff of Paulina Plt Count Immature Gran % (Auto) Neut % (Auto) Lymph % (Auto) [place] % (Auto) Eos % (Auto) Baso % (Auto) Immature Gran # (Auto) Neut # (Auto) Lymph # (Auto) [place] # (Auto) Eos # (Auto) Baso # (Auto) Puncture Site [place] O2 Saturation 95.0 ABG pH 7.396 ABG pCO2 35.6 ABG pO2 75.0 L ABG HCO3 21.8 L ABG Total CO2 23 ABG Base Excess -3 L Quentin Test + FiO2 % 21.0 Sodium Potassium Chloride Carbon Dioxide Anion Gap BUN Creatinine Estimated GFR (MDRD) BUN/Creatinine Ratio Glucose Calcium Total Creatine Kinase Troponin I Orders Category Date Time Status ABG DRAW REQUEST Stat CARDIO 08/14/17 17:32 Completed EKG-(ED ONLY) Stat CARDIO 08/14/17 17:33 Completed NEBULIZER TREATMENT Stat CARDIO 08/14/17 17:33 Completed ABG Stat LAB 08/14/17 17:32 Completed BMP [BASIC METABOLIC PANEL] Stat LAB 08/14/17 16:50 Completed CBC W/ AUTO DIFF Stat LAB 08/14/17 16:50 Completed CREATINE KINASE Stat LAB 08/14/17 16:40 Completed TROPONIN I Stat LAB 08/14/17 16:40 Completed Ipratropium/Albuterol Neb [Duoneb] MEDS 08/14/17 17:02 Discontinued 1 vial NEB .STK-MED ONE Ipratropium/Albuterol Neb [Duoneb] MEDS 08/14/17 17:33 Discontinued 1 vial NEB ONCE STA Lorazepam [Ativan] MEDS 08/14/17 17:26 Discontinued 0.5 mg IVP ONCE STA Methylprednisolone Sod Succ/Pf [Solu-Medrol 125 mg] MEDS 08/14/17 16:38 Discontinued 125 mg IVP ONCE STA CXR [CHEST, 1V AP ONLY] Stat RADS 08/14/17 16:36 Completed Medications Discontinued Medications Generic Name Dose Route Start Last Admin Trade Name Freq PRN Reason Stop Dose Admin Albuterol/Ipratropium 1 vial 08/14/17 17:33 08/14/17 17:37 Duoneb NEB 08/14/17 17:34 Not Given ONCE STA Lorazepam 0.5 mg 08/14/17 17:26 08/14/17 18:05 Ativan IVP 08/14/17 17:27 0.5 mg ONCE STA Administration Methylprednisolone Sodium Succinate 125 mg 08/14/17 16:38 08/14/17 17:02 Solu-Medrol 125 Mg IVP 08/14/17 16:39 125 mg ONCE STA Administration Vital Signs: Temp Pulse Resp BP Pulse Ox 08/14/17 17:07 108 H 130/70 100 08/14/17 16:37 98.1 F 124 H 24 130/70 98 Departure - Departure Time of Disposition: 19:00 Disposition: HOME SELF-CARE Discharge Problem: COPD (chronic obstructive pulmonary disease) Qualifiers: COPD type: COPD with acute exacerbation Qualified Code(s): J44.1 - Chronic obstructive pulmonary disease with (acute) exacerbation Condition: Good Pt referred to PMD for follow-up: Yes IPMP verified?: No Prescriptions: Azithromycin [Zithromax] 500 mg PO DAILY 5 Days #5 tablet Allergies/Adverse Reactions: Allergies ibuprofen Allergy (Severe, Verified 08/14/17 17:06) CANT BREATHE aspirin Adverse Reaction (Verified 08/14/17 17:06) Unknown blue dye Adverse Reaction (Verified 08/14/17 17:06) Unknown ketorolac tromethamine [From Toradol] Adverse Reaction (Verified 08/14/17 17:06) Unknown levofloxacin [From Levaquin] Adverse Reaction (Verified 08/14/17 17:06) Unknown NSAIDS (Non-Steroidal Anti-Inflamma Adverse Reaction (Verified 08/14/17 17:06) Unknown oxaprozin [From Daypro] Adverse Reaction (Verified 08/14/17 17:06) Unknown sulfamethoxazole [From Bactrim] Adverse Reaction (Verified 08/14/17 17:06) Unknown trimethoprim [From Bactrim] Adverse Reaction (Verified 08/14/17 17:06) Unknown Home Medications: Ambulatory Orders Metformin HCl [Fortamet] 500 mg PO BID 12/27/13 Ropinirole HCl [Requip] 3 mg PO BEDTIME 12/27/13 Tiotropium [place] [Spiriva] 1 cap IH DAILY 02/16/14 Albuterol Sulfate [Proair Hfa] 2 puff INH Q4H PRN 08/17/14 Quetiapine Fumarate [Seroquel] 400 mg PO BEDTIME 02/07/15 Atorvastatin Calcium [Lipitor] 20 mg PO BEDTIME #30 tablet 07/04/15 Ipratropium/Albuterol Neb [Duoneb] 1 vial NEB RTQ6H PRN #90 vial.neb 11/12/15 Hydrocodone/Acetaminophen [[place] 10-325 Tablet] 10 mg PO Q6HR PRN 05/11/16 Theophylline Anhydrous [Theophylline] 400 mg PO DAILY 02/15/17 Budesonide/Formoterol Fumarate [Symbicort 160-4.5 Mcg Inhaler] 2 puff IH BID #1 hfa.aer.ad 05/02/17 Lisinopril [Zestril] 2.5 mg PO DAILY #30 tablet 05/02/17 Fluticasone Propionate 110 Mcg [Flovent Hfa 110 Mcg] 1 puff IH DAILY 08/02/17 Azithromycin [Zithromax] 500 mg PO DAILY 5 Days #5 tablet 08/14/17
[2017-08-14] MEDS ORDERED: DUONEB NEB ONE (17:02)
--- NOTE | 2017-08-14 17:13 | DI ---
EXAM: Single view chest COMPARISON: Chest Xray from 05/01/2017 HISTORY: Short of breath FINDINGS: Lungs are clear with no lobar consolidation, failure, large effusion or significant atelec tasis. There is some hyperexpansion of the lung sharp and flattening of the hemidiaphragms. Cardiac and mediastinal silhouettes show no acute abnormality. No acute soft tissue or osseous abnormalities . IMPRESSION: 1. No active disease. 2. Probable chronic obstructive pulmonary disease.
[2017-08-14] MEDS ORDERED: ATIVAN IVP STA (17:26)
[2017-08-14] MEDS ORDERED: DUONEB NEB STA ×2 (17:33→19:08)
== END 2017-08-14 19:31 | disposition home or self-care (01) ==
LOC: ED 16:32
DX: J44.1 Chronic obstructive pulmonary disease with (acute) exacerbation (principal); R06.02 Shortness of breath; E11.9 Type 2 diabetes mellitus without complications; E78.5 Hyperlipidemia, unspecified; I10 Essential (primary) hypertension; F17.210 Nicotine dependence, cigarettes, uncomplicated; Z79.899 Other long term (current) drug therapy
CPT/HCPCS: 36415; 80048; 82550; 82803; 84484; 85025; 93005; 93010; 94640; 96374; 96375; 99284

== ENCOUNTER 2017-08-15 21:31 | Emergency (ER) ==
[2017-08-15 21:37] VITALS: BP 101/66; TEMP 98.8; BMI 18.4
[2017-08-15] MEDS ORDERED: DUONEB NEB STA (22:47)
[2017-08-15] MEDS ORDERED: SOLU-MEDROL 125 MG IVP STA (22:47)
[2017-08-15] MEDS ORDERED: SOLU-MEDROL 125 MG ONE (22:48)
--- NOTE | 2017-08-15 22:52 | CT ---
EXAM: CT of the chest without contrast. HISTORY: Shortness of breath. PROCEDURE: Contiguous axial CT images of the chest without contrast with coronal and sagittal reform ats. FINDINGS: Comparison made with CT of 08/02/2017. The heart is within normal limits in size. The thor acic aorta is within normal limits in diameter. There are atherosclerotic calcifications in the thora cic aorta. There are coronary artery calcifications. There are emphysematous changes throughout both lungs. There is minimal scarring in the right upper lobe and left lower lobe. There is a 4 mm nodu le in the left upper lobe. No infiltrate or consolidation. The bones and soft tissues are unremarkabl e. The adrenal glands and visualized portion of the liver are normal in appearance. There is a 2 mm nonobstructive calcification in the left kidney. Impression: 4 mm nodule in the left upper lobe. Recommend follow-up CT in 6 months to confirm stabi lity. Chronic obstructive pulmonary disease. Minimal right upper lobe and left basilar scarring. Nonobstructive left nephrolithiasis as described.
[2017-08-15] MEDS ORDERED: XOPENEX 1.25 MG NEB ONE (23:11)
[2017-08-15] MEDS ORDERED: XOPENEX 1.25 MG NEB STA (23:15)
--- NOTE | 2017-08-15 23:37 | ED.PDOC ---
General ED Provider: Dr. YULIYA JENKINS Chief Complaint: Shortness of Air Stated Complaint: Came for the coughing, congestion, getting sputum, yellow. shortness of breath is getting worse. was here yesterday. Time Seen by Physician: 23:35 Mode of Arrival: Wheelchair Information Source: Patient, Family Primary Care Provider: LINUS HOLDER Nursing and Triage Documentation Reviewed and Agree: Yes Reviewed sepsis parameters & appropriate labs ordered?: Yes System Inflammatory Response Syndrome: Not Applicable Sepsis Protocol: For patient's 13 years and over: Temp is 96.8 and below OR 101 and greater Pulse >90 BPM Resp >20/minute Acutely Altered Mental Status Are patient's symptoms suggestive of a new infection, such as: -Pneumonia -Skin, Soft Tissue -Endocarditis -UTI -Bone, Joint Infection -Implantable Device -Acute Abdominal Infection -Wound Infection -Meningitis -Blood Stream Catheter Infection -Unknown Respiratory Complaint Exam - Shortness of Air Complaint/Exam Symptoms Are: Still present Timing: Constant Initial Severity: Moderate Current Severity: Moderate Character: Reports: Dyspnea at rest, Dyspnea on exertion Aggravating: Reports: URI Alleviating: Reports: None Associated Signs and Symptoms: Reports: Cough, Wheezing. Denies: Chest pain with cough, Chest pain, Fever, Chills, Diaphoresis, Nasal congestion, Dizziness , Calf pain, Calf swelling, Edema, Rapid breathing, Labored breathing, Decreased intake Related History: Reports: Similar episode History of Healthcare-Acquired Pneumonia: No Pulmonary Embolism Risk Factors: Reports: None Cardiac Risk Factors: Reports: None Pseudomonas Risk Factors: Reports: None Tuberculosis Risk Factors: Reports: None Home Oxygen Use: No Recent Stress Test: No Recent Echo/LV Function: No Respiratory Distress: Mild Stridor Present: No Tracheal Deviation: No Subcutaneous Emphysema: No Accessory Muscle Use: No Retractions: Not Present Diminished Breath Sounds: Yes Prolonged Expiratory Phase: Yes Unable to Speak Full Sentences: Yes Fatigue: No Leg Swelling: No Eun's Sign Present: No Grunting Respirations: No Differential Diagnoses: COPD Exacerbation, Pneumonia Quality Indicators for AMI: EKG in 10min. Review of Systems - Review Of Systems Constitutional: Reports: No symptoms Eyes: Reports: No symptoms Ears, Nose, Mouth, Throat: Reports: No symptoms Respiratory: Reports: Cough, Short of air Cardiac: Reports: No symptoms GI: Reports: No symptoms : Reports: No symptoms Musculoskeletal: Reports: No symptoms Skin: Reports: No symptoms Neurological: Reports: No symptoms Endocrine: Reports: No symptoms Hematologic/Lymphatic: Reports: No symptoms All Other Systems: Reviewed and Negative Past Medical History - Past Medical History Previously Healthy: Yes Endocrine: Reports: DM 2, Dyslipidemia Cardiovascular: Reports: Hypertension, Other (HEART MURMUR ) Respiratory: Reports: COPD, Asthma Hematological: Reports: None Gastrointestinal: Reports: GERD Genitourinary: Reports: Kidney stones Neuro/Psych: Reports: Migraine, Bipolar Disorder Musculoskeletal: Reports: Arthritis, Back Pain (CHRONIC BACK PAIN ) Cancer: Reports: None Last Menstrual Period: PT HAS HAD A HYSTERECTOMY Other Pertinent Past Medical History: LUMBAR SURGERY X2 GB C-SECTIONS X2 tonsillectomy [ End ] - Surgical History General Surgical History: Reports: Hysterectomy (HYSTERECTOMY 1991), ( x2), Cholecystectomy ( *LEFT GALL STONES THAT WERE N), Tonsillectomy, Back Surgery (LUMBAR SURGERY X2 ) - Family History Family History: Reports: Lung (asthma ) - Social History Smoking Status: Current every day smoker, Heavy tobacco smoker Smoking Cessation Counseling Time: > 10 min Hx Substance Use: No Alcohol Screening: None - Immunizations Tetanus Shot up to Date: Yes Physical Exam - Physical Exam Appearance: Ill-appearing, Thin Eyes: TROY, EOMI, Conjunctiva clear ENT: Ears normal, Nose normal, Oropharynx normal Respiratory: Breath sounds diminished, Wheezes Cardiovascular: Tachycardia GI/: Soft, Nontender, No masses, Bowel sounds normal, No Organomegaly Musculoskeletal: Normal strength, ROM intact, No edema, No calf tenderness Skin: Warm, Dry, Normal color Neurological: Sensation intact, Motor intact, Reflexes intact, Cranial nerves intact, Alert, Oriented Psychiatric: Affect appropriate, Mood appropriate Interpretation - Radiology Interpretation Radiology Interpretation By: Radiologist Radiology Results: Negative Exam Interpreted: CT Scan Re-Evaluation - Re-Evaluation Time of Re-Evaluation: 00:06 Status: Improved Critical Care Note - Critical Care Note Total Time (mins): 30 Course - Course Hematology/Chemistry: 08/15/17 22:40 08/15/17 22:40 Orders, Labs, Meds: Lab Review 08/15/17 08/15/17 08/15/17 22:40 22:40 22:40 WBC 14.41 H RBC 4.63 Hgb 12.5 Hct 38.3 MCV 82.7 MCH 27.0 MCHC 32.6 RDW Coeff of Paulina 13.3 Plt Count 259 Immature Gran % (Auto) 0.3 Neut % (Auto) 60.0 Lymph % (Auto) 33.7 [place] % (Auto) 5.9 Eos % (Auto) 0.0 Baso % (Auto) 0.1 Immature Gran # (Auto) 0.1 Neut # (Auto) 8.6 H Lymph # (Auto) 4.9 H [place] # (Auto) 0.9 Eos # (Auto) 0.0 Baso # (Auto) 0.0 Sodium 139 Potassium 3.9 Chloride 103 Carbon Dioxide 23 Anion Gap 16.9 BUN 16 Creatinine 0.75 Estimated GFR (MDRD) 81.00 BUN/Creatinine Ratio 21.33 Glucose 107 Lactic Acid Calcium 9.2 Total Bilirubin 0.2 AST 8 L ALT 7 L Alkaline Phosphatase 140 H Total Creatine Kinase 40 Troponin I < 0.0100 B-Natriuretic Peptide 20 Total Protein 7.2 Albumin 3.8 Globulin 3.4 Albumin/Globulin Ratio 1.12 Procalcitonin 08/15/17 08/15/17 22:40 22:40 WBC RBC Hgb Hct MCV MCH MCHC RDW Coeff of Paulina Plt Count Immature Gran % (Auto) Neut % (Auto) Lymph % (Auto) [place] % (Auto) Eos % (Auto) Baso % (Auto) Immature Gran # (Auto) Neut # (Auto) Lymph # (Auto) [place] # (Auto) Eos # (Auto) Baso # (Auto) Sodium Potassium Chloride Carbon Dioxide Anion Gap BUN Creatinine Estimated GFR (MDRD) BUN/Creatinine Ratio Glucose Lactic Acid 29.7 H Calcium Total Bilirubin AST ALT Alkaline Phosphatase Total Creatine Kinase Troponin I B-Natriuretic Peptide Total Protein Albumin Globulin Albumin/Globulin Ratio Procalcitonin < 0.05 Orders Category Date Time Status EKG-(ED ONLY) Stat CARDIO 08/15/17 22:18 Completed NEBULIZER TREATMENT Stat CARDIO 08/15/17 22:47 Completed NEBULIZER TREATMENT Stat CARDIO 08/15/17 23:15 Completed ED IV/MEDIPORT/POWERPORT .ONCE EMERGENCY 08/15/17 22:18 Active B-TYPE NATRIURETIC PEPTIDE Stat LAB 08/15/17 22:40 Completed CBC W/ AUTO DIFF Stat LAB 08/15/17 22:40 Completed COMPREHENSIVE METABOLIC PANEL Stat LAB 08/15/17 22:40 Completed CREATINE KINASE Stat LAB 08/15/17 22:40 Completed LACTIC ACID Stat LAB 08/15/17 22:40 Completed PROCALCITONIN Stat LAB 08/15/17 22:40 Completed TROPONIN I Stat LAB 08/15/17 22:40 Completed 0.9 % Sodium Chloride [Saline Flush] MEDS 08/15/17 22:18 Ordered 1 syr IVF PRN PRN Ipratropium/Albuterol Neb [Duoneb] MEDS 08/15/17 22:47 Discontinued 1 vial NEB ONCE STA Levalbuterol HCl [Xopenex 1.25 mg] MEDS 08/15/17 23:11 Discontinued 1 vial NEB .STK-MED ONE Levalbuterol HCl [Xopenex 1.25 mg] MEDS 08/15/17 23:15 Discontinued 1 vial NEB ONCE STA Methylprednisolone Sod Succ/Pf [Solu-Medrol 125 mg] MEDS 08/15/17 22:48 Discontinued 125 mg .ROUTE .STK-MED ONE Methylprednisolone Sod Succ/Pf [Solu-Medrol 125 mg] MEDS 08/15/17 22:47 Discontinued 125 mg IVP ONCE STA CT CHEST W/O CONTRAST Stat RADS 08/15/17 22:18 Completed Medications Generic Name Dose Route Start Last Admin Trade Name Freq PRN Reason Stop Dose Admin Sodium Chloride 1 syr 08/15/17 22:18 Saline Flush IVF PRN PRN To flush IV Discontinued Medications Generic Name Dose Route Start Last Admin Trade Name Freq PRN Reason Stop Dose Admin Albuterol/Ipratropium 1 vial 08/15/17 22:47 08/15/17 22:55 Duoneb NEB 08/15/17 22:48 1 vial ONCE STA Administration Levalbuterol HCl 1 vial 08/15/17 23:15 08/15/17 23:31 Xopenex 1.25 Mg NEB 08/15/17 23:16 Not Given ONCE STA Methylprednisolone Sodium Succinate 125 mg 08/15/17 22:47 08/15/17 22:49 Solu-Medrol 125 Mg IVP 08/15/17 22:48 125 mg ONCE STA Administration Vital Signs: Temp Pulse Resp BP Pulse Ox 08/15/17 21:32 98.8 F 122 H 22 101/66 95 Departure - Departure Time of Disposition: 00:06 Disposition: HOME SELF-CARE Discharge Problem: COPD exacerbation Instructions: COPD (Chronic Obstructive Pulmonary Disease) (ED) Condition: Stable Pt referred to PMD for follow-up: Yes IPMP verified?: No Additional Instructions: advised to quite smoking continue using breathing treatments f/u with PMD in 3-4 days Prescriptions: Ipratropium/Albuterol Neb [Duoneb] 1 vial NEB RTQ8H #90 vial.neb Prednisone 10 mg PO BIDWM #14 tablet Allergies/Adverse Reactions: Allergies ibuprofen Allergy (Severe, Verified 08/15/17 21:37) CANT BREATHE aspirin Adverse Reaction (Verified 08/15/17 21:37) Unknown blue dye Adverse Reaction (Verified 08/15/17 21:37) Unknown ketorolac tromethamine [From Toradol] Adverse Reaction (Verified 08/15/17 21:37) Unknown levofloxacin [From Levaquin] Adverse Reaction (Verified 08/15/17 21:37) Unknown NSAIDS (Non-Steroidal Anti-Inflamma Adverse Reaction (Verified 08/15/17 21:37) Unknown oxaprozin [From Daypro] Adverse Reaction (Verified 08/15/17 21:37) Unknown sulfamethoxazole [From Bactrim] Adverse Reaction (Verified 08/15/17 21:37) Unknown trimethoprim [From Bactrim] Adverse Reaction (Verified 08/15/17 21:37) Unknown Home Medications: Ambulatory Orders Metformin HCl [Fortamet] 500 mg PO BID 12/27/13 Ropinirole HCl [Requip] 3 mg PO BEDTIME 12/27/13 Tiotropium [place] [Spiriva] 1 cap IH DAILY 02/16/14 Albuterol Sulfate [Proair Hfa] 2 puff INH Q4H PRN 08/17/14 Quetiapine Fumarate [Seroquel] 400 mg PO BEDTIME 02/07/15 Ipratropium/Albuterol Neb [Duoneb] 1 vial NEB RTQ6H PRN #90 vial.neb 11/12/15 Hydrocodone/Acetaminophen [[place] 10-325 Tablet] 10 mg PO Q6HR PRN 05/11/16 Theophylline Anhydrous [Theophylline] 400 mg PO DAILY 02/15/17 Budesonide/Formoterol Fumarate [Symbicort 160-4.5 Mcg Inhaler] 2 puff IH BID #1 hfa.aer.ad 05/02/17 Lisinopril [Zestril] 2.5 mg PO DAILY #30 tablet 05/02/17 Atorvastatin Calcium [Lipitor] 20 mg PO DAILY 08/15/17 Azithromycin [Zithromax] 250 mg PO DAILY 08/15/17 Butalb/Acetaminophen/Caffeine [Fioricet 50-300-40 mg Capsule] 1 each PO DIRECTED PRN 08/15/17 Ipratropium/Albuterol Neb [Duoneb] 1 vial NEB RTQ8H #90 vial.neb 08/16/17 Prednisone 10 mg PO BIDWM #14 tablet 08/16/17 Disposition Discussed With: Patient, Family
== END 2017-08-16 00:23 | disposition home or self-care (01) ==
LOC: ED 21:31
DX: J44.1 Chronic obstructive pulmonary disease with (acute) exacerbation (principal); R06.02 Shortness of breath; F17.210 Nicotine dependence, cigarettes, uncomplicated; E11.9 Type 2 diabetes mellitus without complications; E78.5 Hyperlipidemia, unspecified; I10 Essential (primary) hypertension; Z79.899 Other long term (current) drug therapy
CPT/HCPCS: 36415; 80053; 82550; 83605; 83880; 84145; 84484; 85025; 93005; 93010; 94640; 96374; 99283

== ENCOUNTER 2017-11-14 09:52 | Outpatient (CLI) ==
[2017-11-15 10:12] VITALS: BMI 18.6
== END 2017-11-14 10:00 | disposition short-term general hospital (02) ==
LOC: AMBL 09:52
PROVIDERS: ATTEND Emergency Medicine
DX: R06.02 Shortness of breath (principal); R05 Cough; R06.2 Wheezing; R00.0 Tachycardia, unspecified

== ENCOUNTER 2017-11-15 10:05 | Emergency (ER) ==
[2017-11-15] MEDS ORDERED: SOLU-MEDROL 125 MG IVP STA (10:10)
[2017-11-15 10:12] VITALS: BP 103/75; TEMP 96.6; BMI 18.6
--- NOTE | 2017-11-15 10:50 | DI ---
EXAM: Chest one view, frontal view only. HISTORY: Shortness of breath. COMPARISON: 08/14/2017. FINDINGS: The heart size is normal. There is no pulmonary vascular congestion. The lungs are clear . No pleural effusion or pneumothorax is seen. No acute osseous abnormality is identified. Since t he prior study, there has been no significant interval change. IMPRESSION: No acute cardiopulmonary process.
[2017-11-15] MEDS ORDERED: ROCEPHIN 1 GM in SODIUM CHLORIDE 50 ML IV STA (11:02)
[2017-11-15] MEDS ORDERED: ZITHROMAX PO STA (11:02)
[2017-11-15] MEDS ORDERED: ROCEPHIN ONE (11:25)
--- NOTE | 2017-11-15 12:51 | ED.PDOC ---
General ED Provider: Dr. THU HDZ Chief Complaint: Shortness of Air Stated Complaint: cough, congestion Time Seen by Physician: 10:10 (seen with nurse at all times , smokes 1/2 pk day) Mode of Arrival: Ambulance Information Source: Patient, EMT Exam Limitations: No limitations Primary Care Provider: LINUS HOLDER Nursing and Triage Documentation Reviewed and Agree: Yes Does patient meet sepsis criteria?: No If yes, has appropriate treatment been initiated?: No System Inflammatory Response Syndrome: Not Applicable Sepsis Protocol: For patient's 13 years and over: Temp is 96.8 and below OR 101 and greater Pulse >90 BPM Resp >20/minute Acutely Altered Mental Status Are patient's symptoms suggestive of a new infection, such as: -Pneumonia -Skin, Soft Tissue -Endocarditis -UTI -Bone, Joint Infection -Implantable Device -Acute Abdominal Infection -Wound Infection -Meningitis -Blood Stream Catheter Infection -Unknown Respiratory Complaint Exam - Respiratory Complaint/Exam Onset/Duration: chronic worse today Symptoms Are: Still present Timing: Intermittent Initial Severity: Moderate Current Severity: Mild Location: Nose, Throat, Chest Character: Reports: Non-productive cough Aggravating: Reports: URI Alleviating: Reports: Bronchodilators Associated Signs and Symptoms: Reports: Wheezing, URI, Nasal congestion. Denies : Rapid breathing, Dyspnea, Fever, Chills, Chest pain, Pleuritic chest pain, Hemoptysis, Dizziness, Calf pain, Calf swelling, Edema, Hoarseness, Sinus discomfort, Vomiting, Sore throat, Weight loss, Decreased oral intake, Increased thirst, Increased appetite, Increased urination Related History: Reports: Similar episode Related Surgical History: Reports: None Pulmonary Embolism Risk Factors: Bedrest Cardiac Risk Factors: Reports: Smoking, Elevated lipids, Diabetes, Hypertension Pseudomonas Risk Factors: Reports: Chronic Lung Disease Tuberculosis Risk Factors: Reports: Chronic Resp. Faliure Status Asthmaticus Risk Factors: Reports: None Home Oxygen Use: No Recent Stress Test: No Recent Echo/LV Function: No Current Antibiotic Use: No Current Asthma Medication Use: No Respiratory Distress: None Inadequate Respiratory Effort: No Dysphagia Present: No Stridor Present: No JVD Present: No Retractions: Not Present Diminished Breath Sounds: No Sinus Tenderness: None Differential Diagnoses: Pneumonia, Bronchitis Non-Traumatic Chest Pain Syncope: EKG Performed Review of Systems - Review Of Systems Constitutional: Reports: No symptoms Eyes: Reports: No symptoms Ears, Nose, Mouth, Throat: Reports: No symptoms Respiratory: Reports: Cough, Wheezing Cardiac: Reports: No symptoms GI: Reports: No symptoms : Reports: No symptoms Musculoskeletal: Reports: No symptoms Skin: Reports: No symptoms Neurological: Reports: No symptoms Endocrine: Reports: No symptoms Hematologic/Lymphatic: Reports: No symptoms All Other Systems: Reviewed and Negative Past Medical History - Past Medical History Previously Healthy: Yes Endocrine: Reports: DM 2, Dyslipidemia Cardiovascular: Reports: Hypertension, Other (HEART MURMUR ) Respiratory: Reports: COPD, Asthma Hematological: Reports: None Gastrointestinal: Reports: GERD Genitourinary: Reports: Kidney stones Neuro/Psych: Reports: Migraine, Bipolar Disorder Musculoskeletal: Reports: Arthritis, Back Pain (CHRONIC BACK PAIN ) Cancer: Reports: None Last Menstrual Period: 1991 Other Pertinent Past Medical History: LUMBAR SURGERY X2 GB C-SECTIONS X2 tonsillectomy [ End ] - Surgical History General Surgical History: Reports: Hysterectomy (HYSTERECTOMY 1991), ( x2), Cholecystectomy ( *LEFT GALL STONES THAT WERE N), Tonsillectomy, Back Surgery (LUMBAR SURGERY X2 ) - Family History Family History: Reports: Lung (asthma ) - Social History Smoking Status: Current every day smoker, Heavy tobacco smoker Hx Substance Use: No Alcohol Screening: None - Immunizations Tetanus Shot up to Date: Yes Physical Exam - Physical Exam Appearance: Well-appearing, No pain distress, Well-nourished Eyes: TROY, EOMI, Conjunctiva clear ENT: Ears normal, Nose normal, Oropharynx normal Respiratory: Rhonchi, Wheezes Cardiovascular: RRR, Pulses normal, No rub, No murmur GI/: Soft, Nontender, No masses, Bowel sounds normal, No Organomegaly Musculoskeletal: Normal strength, ROM intact, No edema, No calf tenderness Skin: Warm, Dry, Normal color Neurological: Sensation intact, Motor intact, Reflexes intact, Cranial nerves intact, Alert, Oriented Psychiatric: Affect appropriate, Mood appropriate Interpretation - Radiology Interpretation Radiology Interpretation By: Radiologist Radiology Results: No acute changes Exam Interpreted: Portable CXR - Business Operations Consultant Rate: Tachy Rhythm: Sinus - EKG Interpretation Rate: Tachy Rhythm: Sinus [place]: Left ST Segment: Normal Re-Evaluation - Re-Evaluation Time of Re-Evaluation: 12:00 Status: Improved Vital Signs Stable: Yes Pain Level: 0 Appearance: NAD Lungs: Clear Skin: Warm and Dry Neuro: Alert and Oriented X3 CV: RRR - Re-Evaluation Time of Re-Evaluation: 12:52 Status: Improved Vital Signs Stable: Yes Pain Level: 0 Appearance: NAD Skin: Warm and Dry Neuro: Alert and Oriented X3 CV: RRR Critical Care Note - Critical Care Note Total Time (mins): 0 Course - Course Hematology/Chemistry: 11/15/17 10:20 11/15/17 10:20 Orders, Labs, Meds: Lab Review 11/15/17 11/15/17 11/15/17 10:10 10:20 10:20 WBC 11.18 H RBC 4.83 Hgb 13.2 Hct 40.6 MCV 84.1 MCH 27.3 MCHC 32.5 RDW Coeff of Paulina 14.7 Plt Count 198 Immature Gran % (Auto) 0.4 Neut % (Auto) 72.4 Lymph % (Auto) 21.7 [place] % (Auto) 5.1 Eos % (Auto) 0.0 Baso % (Auto) 0.4 Immature Gran # (Auto) 0.0 Neut # (Auto) 8.1 H Lymph # (Auto) 2.4 [place] # (Auto) 0.6 Eos # (Auto) 0.0 Baso # (Auto) 0.0 D-Dimer (Manual) Puncture Site Lrad O2 Saturation 95.0 ABG pH 7.379 ABG pCO2 45.7 H ABG pO2 76.0 L ABG HCO3 26.9 H ABG Total CO2 28 ABG Base Excess 2 Quentin Test + O2 Delivery Device Nc Oxygen Liter Flow 2.00 Sodium 139.8 Potassium 4.04 Chloride 102.2 Carbon Dioxide 29.1 Anion Gap 12.54 BUN 9.6 Creatinine 0.72 Estimated GFR (MDRD) 84.00 BUN/Creatinine Ratio 13.33 Glucose 155.7 H Lactic Acid Calcium 9.45 Total Bilirubin 0.20 AST 12.9 L ALT 8.6 Alkaline Phosphatase 182.4 H Total Creatine Kinase 46.1 Troponin I < 0.012 NT-Pro-B Natriuret Pep 83.300 Total Protein 7.80 Albumin 4.39 Globulin 3.41 Albumin/Globulin Ratio 1.28 Procalcitonin 11/15/17 11/15/17 11/15/17 10:20 10:20 10:20 WBC RBC Hgb Hct MCV MCH MCHC RDW Coeff of Paulina Plt Count Immature Gran % (Auto) Neut % (Auto) Lymph % (Auto) [place] % (Auto) Eos % (Auto) Baso % (Auto) Immature Gran # (Auto) Neut # (Auto) Lymph # (Auto) [place] # (Auto) Eos # (Auto) Baso # (Auto) D-Dimer (Manual) 361.13 Puncture Site O2 Saturation ABG pH ABG pCO2 ABG pO2 ABG HCO3 ABG Total CO2 ABG Base Excess Quentin Test O2 Delivery Device Oxygen Liter Flow Sodium Potassium Chloride Carbon Dioxide Anion Gap BUN Creatinine Estimated GFR (MDRD) BUN/Creatinine Ratio Glucose Lactic Acid 1.09 Calcium Total Bilirubin AST ALT Alkaline Phosphatase Total Creatine Kinase Troponin I NT-Pro-B Natriuret Pep Total Protein Albumin Globulin Albumin/Globulin Ratio Procalcitonin < 0.05 Orders Category Date Time Status ABG DRAW REQUEST Stat CARDIO 11/15/17 10:10 Completed EKG-(ED ONLY) Stat CARDIO 11/15/17 10:08 Completed ED IV/MEDIPORT/POWERPORT .ONCE EMERGENCY 11/15/17 10:09 Active ABG Stat LAB 11/15/17 10:10 Completed BLOOD CULTURE Stat LAB 11/15/17 10:20 Received CBC W/ AUTO DIFF Stat LAB 11/15/17 10:20 Completed COMPREHENSIVE METABOLIC PANEL Stat LAB 11/15/17 10:20 Completed CREATINE KINASE Stat LAB 11/15/17 10:20 Completed D-DIMER Stat LAB 11/15/17 10:20 Completed LACTIC ACID Stat LAB 11/15/17 10:20 Completed NT-PROBNP Stat LAB 11/15/17 10:20 Completed PROCALCITONIN Stat LAB 11/15/17 10:20 Completed TROPONIN I Stat LAB 11/15/17 10:20 Completed 0.9 % Sodium Chloride [Saline Flush] MEDS 11/15/17 10:09 Active 1 syr IVF PRN PRN Azithromycin [Zithromax] MEDS 11/15/17 11:02 Discontinued 1,000 mg PO ONCE STA Ceftriaxone Sodium [Rocephin] MEDS 11/15/17 11:25 Discontinued 1 gm .ROUTE .STK-MED ONE Ceftriaxone Sodium [Rocephin] 1 gm MEDS 11/15/17 11:02 Discontinued 0.9 % Sodium Chloride [Sodium Chloride] 50 ml IV ONCE Methylprednisolone Sod Succ/Pf [Solu-Medrol 125 mg] MEDS 11/15/17 10:10 Discontinued 125 mg IVP ONCE STA CHEST, 1V AP ONLY Stat RADS 11/15/17 10:10 Completed Medications Generic Name Dose Route Start Last Admin Trade Name Freq PRN Reason Stop Dose Admin Sodium Chloride 1 syr 11/15/17 10:09 11/15/17 10:38 Saline Flush IVF 1 syr PRN PRN Administration To flush IV Discontinued Medications Generic Name Dose Route Start Last Admin Trade Name Freq PRN Reason Stop Dose Admin Azithromycin 1,000 mg 11/15/17 11:02 11/15/17 11:34 Zithromax PO 11/15/17 11:03 1,000 mg ONCE STA Administration Ceftriaxone Sodium 1 gm/ 50 mls @ 75 mls/hr 11/15/17 11:02 11/15/17 11:34 Sodium Chloride IV 11/15/17 11:41 75 mls/hr ONCE STA Administration Methylprednisolone Sodium Succinate 125 mg 11/15/17 10:10 11/15/17 10:38 Solu-Medrol 125 Mg IVP 11/15/17 10:11 125 mg ONCE STA Administration Vital Signs: Temp Pulse Resp BP Pulse Ox 11/15/17 10:07 96.6 F L 123 H 27 H 103/75 98 Departure - Departure Time of Disposition: 12:52 Disposition: HOME SELF-CARE Discharge Problem: COPD (chronic obstructive pulmonary disease) Qualifiers: COPD type: unspecified COPD Qualified Code(s): J44.9 - Chronic obstructive pulmonary disease, unspecified Instructions: COPD (Chronic Obstructive Pulmonary Disease) (ED) Condition: Good Pt referred to PMD for follow-up: Yes IPMP verified?: No Additional Instructions: Please call your Family Physician as soon as possible to schedule a follow-up appointment. Prescriptions: Azithromycin [Zithromax] 250 mg PO DIRECTED #6 tablet Prednisone 20 mg PO DAILYWM #7 tablet Allergies/Adverse Reactions: Allergies ibuprofen Allergy (Severe, Verified 08/15/17 21:37) CANT BREATHE aspirin Adverse Reaction (Verified 08/15/17 21:37) Unknown blue dye Adverse Reaction (Verified 08/15/17 21:37) Unknown ketorolac tromethamine [From Toradol] Adverse Reaction (Verified 08/15/17 21:37) Unknown levofloxacin [From Levaquin] Adverse Reaction (Verified 08/15/17 21:37) Unknown NSAIDS (Non-Steroidal Anti-Inflamma Adverse Reaction (Verified 08/15/17 21:37) Unknown oxaprozin [From Daypro] Adverse Reaction (Verified 08/15/17 21:37) Unknown sulfamethoxazole [From Bactrim] Adverse Reaction (Verified 08/15/17 21:37) Unknown trimethoprim [From Bactrim] Adverse Reaction (Verified 08/15/17 21:37) Unknown Home Medications: Ambulatory Orders Metformin HCl [Fortamet] 500 mg PO BID 12/27/13 Ropinirole HCl [Requip] 3 mg PO BEDTIME 12/27/13 Albuterol Sulfate [Proair Hfa] 2 puff INH Q4H PRN 08/17/14 Quetiapine Fumarate [Seroquel] 400 mg PO BEDTIME 02/07/15 Ipratropium/Albuterol Neb [Duoneb] 1 vial NEB RTQ6H PRN #90 vial.neb 11/12/15 Hydrocodone/Acetaminophen [[place] 10-325 Tablet] 10 mg PO Q6HR PRN 05/11/16 Lisinopril [Zestril] 2.5 mg PO DAILY #30 tablet 05/02/17 Atorvastatin Calcium [Lipitor] 20 mg PO DAILY 08/15/17 Butalb/Acetaminophen/Caffeine [Fioricet 50-300-40 mg Capsule] 1 each PO DIRECTED PRN 08/15/17 Ipratropium/Albuterol Neb [Duoneb] 1 vial NEB RTQ8H #90 vial.neb 08/16/17 Albuterol Sulfate [Ventolin Hfa] 18 gm IH PRN PRN 11/15/17 Amitriptyline HCl 50 mg PO DAILY 11/15/17 Azithromycin [Zithromax] 250 mg PO DIRECTED #6 tablet 11/15/17 Codeine Phosphate/Guaifenesin [Virtussin AC Liquid] 118 ml PO PRN PRN 11/15/17 Prednisone 20 mg PO DAILYWM #7 tablet 11/15/17 Theophylline Anhydrous [Simone-24] 400 mg PO DAILY 11/15/17 Umeclidinium [place] [Incruse Ellipta] 62.5 mcg IH DAILY 11/15/17 Disposition Discussed With: Patient
== END 2017-11-15 13:20 | disposition home or self-care (01) ==
LOC: ED 10:05
DX: J44.9 Chronic obstructive pulmonary disease, unspecified (principal); R06.02 Shortness of breath; E78.5 Hyperlipidemia, unspecified; E11.9 Type 2 diabetes mellitus without complications; I10 Essential (primary) hypertension; F17.210 Nicotine dependence, cigarettes, uncomplicated; Z79.899 Other long term (current) drug therapy
CPT/HCPCS: 36415; 80053; 82550; 82803; 83605; 83880; 84145; 84484; 85025; 85379; 87040; 93005; 93010; 96365; 96375; 99284

== ENCOUNTER 2018-03-21 21:09 | Emergency (ER) ==
[2018-03-21 21:20] VITALS: BP 134/82; TEMP 98.6; BMI 18.7
[2018-03-21] MEDS ORDERED: XOPENEX 1.25 MG NEB STA (21:20)
[2018-03-21] MEDS ORDERED: SOLU-MEDROL 125 MG IVP STA (21:28)
[2018-03-21] MEDS ORDERED: DUONEB NEB STA (21:28)
[2018-03-21] MEDS ORDERED: BENADRYL IVP STA (22:11)
--- NOTE | 2018-03-22 00:06 | CT ---
Exam: CT angiography of the chest History: Chest pain Technique: [address] of the chest utilizing CT angiography protocol per multiplanar and m aximum intensity projection reformations were performed. FINDINGS: Technically adequate for evaluation of pulmonary arteries and aorta. Trace weblike fillin g defect of the right lower lobe pulmonary artery (axial 59). No additional pulmonary artery filling defect. Minor atherosclerotic calcification of the aorta without aneurysm. The lung windows show n o moderate emphysematous change. No infiltrative or consolidative densities. There is no pleural fl uid. No acute findings of the chest wall soft tissues or bony thorax. Mild thoracic scoliosis. No acute findings of the upper abdomen. Impression: 1. Weblike filling defect of the right lower lobe pulmonary artery segment also seen on 04/28/2017 c onsistent with chronic thrombus. No acute pulmonary artery thrombus is seen. 2. Emphysema 3. No acute findings of the chest
--- NOTE | 2018-03-22 00:21 | ED.PDOC ---
General ED Provider: Dr. JACOB PELAEZ-ER Chief Complaint: Shortness of Air Stated Complaint: im coughing and wheezing Time Seen by Physician: 21:15 Mode of Arrival: Wheelchair Information Source: Patient Exam Limitations: No limitations Primary Care Provider: LINUS HOLDER Nursing and Triage Documentation Reviewed and Agree: Yes Does patient meet sepsis criteria?: No System Inflammatory Response Syndrome: Not Applicable Sepsis Protocol: For patient's 13 years and over: Temp is 96.8 and below OR 101 and greater Pulse >90 BPM Resp >20/minute Acutely Altered Mental Status Are patient's symptoms suggestive of a new infection, such as: -Pneumonia -Skin, Soft Tissue -Endocarditis -UTI -Bone, Joint Infection -Implantable Device -Acute Abdominal Infection -Wound Infection -Meningitis -Blood Stream Catheter Infection -Unknown Respiratory Complaint Exam - Respiratory Complaint/Exam Onset/Duration: 24 hrs Symptoms Are: Still present Timing: Constant Initial Severity: Mild Current Severity: Moderate Character: Reports: Non-productive cough Aggravating: Reports: URI Alleviating: Reports: Bronchodilators, Steriods Associated Signs and Symptoms: Reports: Dyspnea, Wheezing. Denies: Rapid breathing, Fever, Chills Home Oxygen Use: Yes Recent Stress Test: No Recent Echo/LV Function: No Current Antibiotic Use: No Current Asthma Medication Use: No Respiratory Distress: None Inadequate Respiratory Effort: No Dysphagia Present: No Stridor Present: No JVD Present: No Accessory Muscle Use: No Retractions: Not Present Diminished Breath Sounds: No Sinus Tenderness: None Differential Diagnoses: COPD Exacerbation Review of Systems - Review Of Systems Constitutional: Reports: No symptoms Eyes: Reports: No symptoms Ears, Nose, Mouth, Throat: Reports: No symptoms Respiratory: Reports: Cough, Short of air, Wheezing Cardiac: Reports: Chest pain GI: Reports: No symptoms : Reports: No symptoms Musculoskeletal: Reports: No symptoms Skin: Reports: No symptoms Neurological: Reports: No symptoms Endocrine: Reports: No symptoms Hematologic/Lymphatic: Reports: No symptoms All Other Systems: Reviewed and Negative Past Medical History - Past Medical History Previously Healthy: Yes Endocrine: Reports: DM 2, Dyslipidemia Cardiovascular: Reports: Hypertension, Other (HEART MURMUR ) Respiratory: Reports: COPD, Asthma Hematological: Reports: None Gastrointestinal: Reports: GERD Genitourinary: Reports: Kidney stones Neuro/Psych: Reports: Migraine, Bipolar Disorder Musculoskeletal: Reports: Arthritis, Back Pain (CHRONIC BACK PAIN ) Cancer: Reports: None Last Menstrual Period: 1991 hyst Other Pertinent Past Medical History: LUMBAR SURGERY X2 GB C-SECTIONS X2 tonsillectomy [ End ] - Surgical History General Surgical History: Reports: Hysterectomy (HYSTERECTOMY 1991), ( x2), Cholecystectomy ( *LEFT GALL STONES THAT WERE N), Tonsillectomy, Back Surgery (LUMBAR SURGERY X2 ) - Family History Family History: Reports: Lung (asthma ) - Social History Smoking Status: Current every day smoker, Heavy tobacco smoker Hx Substance Use: No Alcohol Screening: None - Immunizations Tetanus Shot up to Date: Yes Physical Exam - Physical Exam Appearance: Well-appearing, No pain distress, Well-nourished Eyes: TROY, EOMI, Conjunctiva clear ENT: Ears normal, Nose normal, Oropharynx normal Neck: Supple Respiratory: Breath sounds diminished, Wheezes Cardiovascular: RRR, Pulses normal, No rub, No murmur GI/: Soft Musculoskeletal: Normal strength, ROM intact, No edema, No calf tenderness Skin: Warm, Dry, Normal color Neurological: Sensation intact, Motor intact, Reflexes intact, Cranial nerves intact, Alert, Oriented Psychiatric: Affect appropriate, Mood appropriate Interpretation - Radiology Interpretation Radiology Interpretation By: Radiologist Radiology Results: Negative Exam Interpreted: CT Scan - EKG Interpretation Time of EKG #1: 00:20 Rate: Normal Rhythm: Sinus Ectopy: None [place]: NL ST Segment: Normal Interpretation: nsr Re-Evaluation - Re-Evaluation Time of Re-Evaluation: 00:20 Status: Improved Vital Signs Stable: Yes Pain Level: 0 Appearance: NAD Lungs: Clear Skin: Warm and Dry Neuro: Alert and Oriented X3 CV: RRR Critical Care Note - Critical Care Note Total Time (mins): 0 Course - Course Hematology/Chemistry: 03/21/18 21:34 03/21/18 21:34 Orders, Labs, Meds: Lab Review 03/21/18 03/21/18 03/21/18 21:17 21:34 21:34 WBC 12.00 H RBC 4.11 L Hgb 11.7 L Hct 35.4 L MCV 86.1 MCH 28.5 MCHC 33.1 RDW Coeff of Paulina 13.3 Plt Count 230 Immature Gran % (Auto) 0.3 Neut % (Auto) 63.9 Lymph % (Auto) 29.6 [place] % (Auto) 6.1 Eos % (Auto) 0.0 Baso % (Auto) 0.1 Immature Gran # (Auto) 0.0 Neut # (Auto) 7.7 H Lymph # (Auto) 3.6 H [place] # (Auto) 0.7 Eos # (Auto) 0.0 Baso # (Auto) 0.0 Puncture Site Lb O2 Saturation 95.0 ABG pH 7.404 ABG pCO2 37.3 ABG pO2 75.0 L ABG HCO3 23.3 ABG Total CO2 24 ABG Base Excess -1 Quentin Test + FiO2 % 21.0 Sodium 142.0 Potassium 4.68 Chloride 105.2 Carbon Dioxide 26.4 Anion Gap 15.08 BUN 9.3 Creatinine 0.54 L Estimated GFR (MDRD) 118.00 BUN/Creatinine Ratio 17.22 Glucose 98.6 Calcium 8.98 Total Bilirubin 0.12 L AST 20.2 ALT 10.9 Alkaline Phosphatase 164.7 H Total Creatine Kinase Troponin I Total Protein 6.86 Albumin 3.91 Globulin 2.95 Albumin/Globulin Ratio 1.32 Amylase 81.8 Lipase 196.4 03/21/18 21:34 WBC RBC Hgb Hct MCV MCH MCHC RDW Coeff of Paulina Plt Count Immature Gran % (Auto) Neut % (Auto) Lymph % (Auto) [place] % (Auto) Eos % (Auto) Baso % (Auto) Immature Gran # (Auto) Neut # (Auto) Lymph # (Auto) [place] # (Auto) Eos # (Auto) Baso # (Auto) Puncture Site O2 Saturation ABG pH ABG pCO2 ABG pO2 ABG HCO3 ABG Total CO2 ABG Base Excess Quentin Test FiO2 % Sodium Potassium Chloride Carbon Dioxide Anion Gap BUN Creatinine Estimated GFR (MDRD) BUN/Creatinine Ratio Glucose Calcium Total Bilirubin AST ALT Alkaline Phosphatase Total Creatine Kinase 41.5 Troponin I < 0.012 Total Protein Albumin Globulin Albumin/Globulin Ratio Amylase Lipase Orders Category Date Time Status ABG DRAW REQUEST Stat CARDIO 03/21/18 21:17 Completed EKG-(ED ONLY) Stat CARDIO 03/21/18 21:17 Completed NEBULIZER TREATMENT Stat CARDIO 03/21/18 21:20 Completed NEBULIZER TREATMENT Stat CARDIO 03/21/18 21:28 Completed NPO REMINDER: IMAGING ONCE CARE 03/21/18 21:19 Completed ABG Stat LAB 03/21/18 21:17 Completed AMYLASE Stat LAB 03/21/18 21:34 Completed CBC W/ AUTO DIFF Stat LAB 03/21/18 21:34 Completed COMPREHENSIVE METABOLIC PANEL Stat LAB 03/21/18 21:34 Completed CREATINE KINASE Stat LAB 03/21/18 21:34 Completed LIPASE Stat LAB 03/21/18 21:34 Completed TROPONIN I Stat LAB 03/21/18 21:34 Completed Diphenhydramine Inj [Benadryl] MEDS 03/21/18 22:11 Discontinued 50 mg IVP ONCE STA Ipratropium/Albuterol Neb [Duoneb] MEDS 03/21/18 21:28 Discontinued 1 vial NEB ONCE STA Levalbuterol HCl [Xopenex 1.25 mg] MEDS 03/21/18 21:20 Discontinued 1 vial NEB ONCE STA Methylprednisolone Sod Succ/Pf [Solu-Medrol 125 mg] MEDS 03/21/18 21:28 Discontinued 125 mg IVP ONCE STA CT CHEST PE PROTOCOL Stat RADS 03/21/18 21:19 Completed Medications Discontinued Medications Generic Name Dose Route Start Last Admin Trade Name Freq PRN Reason Stop Dose Admin Albuterol/Ipratropium 1 vial 03/21/18 21:28 03/21/18 21:52 Duoneb NEB 03/21/18 21:29 1 vial ONCE STA Administration Diphenhydramine HCl 50 mg 03/21/18 22:11 03/21/18 22:20 Benadryl IVP 03/21/18 22:12 50 mg ONCE STA Administration Levalbuterol HCl 1 vial 03/21/18 21:20 03/21/18 21:39 Xopenex 1.25 Mg NEB 03/21/18 21:21 1 vial ONCE STA Administration Methylprednisolone Sodium Succinate 125 mg 03/21/18 21:28 03/21/18 21:41 Solu-Medrol 125 Mg IVP 03/21/18 21:29 125 mg ONCE STA Administration Vital Signs: Temp Pulse Resp BP Pulse Ox 03/21/18 21:11 98.6 F 112 H 26 H 134/82 97 Departure - Departure Time of Disposition: 00:21 Disposition: PLACED OBSERVATION Discharge Problem: COPD exacerbation Instructions: COPD (Chronic Obstructive Pulmonary Disease) (ED) Condition: Good Pt referred to PMD for follow-up: Yes IPMP verified?: No Additional Instructions: prednisone 40mg x 3 days then 20mg x 3 days then 10mg x 3 days---keflex 500mg bid x 7 days #14--return prn Allergies/Adverse Reactions: Allergies ibuprofen Allergy (Severe, Verified 01/28/18 19:32) CANT BREATHE aspirin Adverse Reaction (Verified 01/28/18 19:32) Unknown blue dye Adverse Reaction (Verified 01/28/18 19:32) Unknown ketorolac tromethamine [From Toradol] Adverse Reaction (Verified 01/28/18 19:32) Unknown levofloxacin [From Levaquin] Adverse Reaction (Verified 01/28/18 19:32) Unknown NSAIDS (Non-Steroidal Anti-Inflamma Adverse Reaction (Verified 01/28/18 19:32) Unknown oxaprozin [From Daypro] Adverse Reaction (Verified 01/28/18 19:32) Unknown sulfamethoxazole [From Bactrim] Adverse Reaction (Verified 01/28/18 19:32) Unknown trimethoprim [From Bactrim] Adverse Reaction (Verified 01/28/18 19:32) Unknown Home Medications: Ambulatory Orders Metformin HCl [Fortamet] 500 mg PO BID 12/27/13 Ropinirole HCl [Requip] 3 mg PO BEDTIME 12/27/13 Albuterol Sulfate [Proair Hfa] 2 puff INH Q4H PRN 08/17/14 Quetiapine Fumarate [Seroquel] 400 mg PO BEDTIME 02/07/15 Ipratropium/Albuterol Neb [Duoneb] 1 vial NEB RTQ6H PRN #90 vial.neb 11/12/15 Hydrocodone/Acetaminophen [[place] 10-325 Tablet] 10 mg PO Q6HR PRN 05/11/16 Lisinopril [Zestril] 2.5 mg PO DAILY #30 tablet 05/02/17 Atorvastatin Calcium [Lipitor] 20 mg PO DAILY 08/15/17 Butalb/Acetaminophen/Caffeine [Fioricet 50-300-40 mg Capsule] 1 each PO DIRECTED PRN 08/15/17 Ipratropium/Albuterol Neb [Duoneb] 1 vial NEB RTQ8H #90 vial.neb 08/16/17 Albuterol Sulfate [Ventolin Hfa] 18 gm IH PRN PRN 11/15/17 Amitriptyline HCl 50 mg PO DAILY 11/15/17 Theophylline Anhydrous [Simone-24] 400 mg PO DAILY 11/15/17 Umeclidinium [place] [Incruse Ellipta] 62.5 mcg IH DAILY 11/15/17 Fluticasone/Vilanterol [Breo Ellipta Inhaler] 1 each IH DAILY 01/28/18 Disposition Discussed With: Patient, Family
== END 2018-03-22 00:31 | disposition admitted as inpatient to this hospital (09) ==
LOC: ED 21:09
DX: J44.1 Chronic obstructive pulmonary disease with (acute) exacerbation (principal); F17.210 Nicotine dependence, cigarettes, uncomplicated; R07.9 Chest pain, unspecified; R06.02 Shortness of breath; E11.9 Type 2 diabetes mellitus without complications; E78.5 Hyperlipidemia, unspecified; I10 Essential (primary) hypertension; Z79.899 Other long term (current) drug therapy
CPT/HCPCS: 36415; 80053; 82150; 82550; 82803; 83690; 84484; 85025; 93005; 93010; 94640; 96374; 96375; 99284

== ENCOUNTER 2018-05-08 21:47 | Emergency (ER) ==
[2018-05-08 21:58] VITALS: BP 117/76; TEMP 97.8; BMI 18.4
--- NOTE | 2018-05-08 22:10 | ED.PDOC ---
General ED Provider: Dr. TOMA OVALLES Chief Complaint: Shortness of Air Stated Complaint: Patient is a 52 year old female with history of COPD who comes to the ER with cough and shortness of breath that started getting worse yesterday. The cough is non-productive and reports rib pain with breathing and headache. Time Seen by Physician: 22:07 Mode of Arrival: Wheelchair Information Source: Patient Primary Care Provider: TYRELL ANGEL Nursing and Triage Documentation Reviewed and Agree: Yes Does patient meet sepsis criteria?: Yes If yes, has appropriate treatment been initiated?: Yes System Inflammatory Response Syndrome: Pulse >90 BPM, Resp >20/Minute Sepsis Protocol: For patient's 13 years and over: Temp is 96.8 and below OR 101 and greater Pulse >90 BPM Resp >20/minute Acutely Altered Mental Status Are patient's symptoms suggestive of a new infection, such as: -Pneumonia -Skin, Soft Tissue -Endocarditis -UTI -Bone, Joint Infection -Implantable Device -Acute Abdominal Infection -Wound Infection -Meningitis -Blood Stream Catheter Infection -Unknown Respiratory Complaint Exam - Shortness of Air Complaint/Exam Onset/Duration: 1 day Symptoms Are: Still present Timing: Constant Initial Severity: Moderate Current Severity: Severe Character: Reports: Dyspnea at rest Aggravating: Reports: URI, Weather Alleviating: Reports: None Associated Signs and Symptoms: Reports: Cough, Wheezing, Rapid breathing Review of Systems - Review Of Systems Constitutional: Reports: No symptoms Eyes: Reports: No symptoms Ears, Nose, Mouth, Throat: Reports: No symptoms Respiratory: Reports: Cough, Short of air, Wheezing Cardiac: Reports: No symptoms GI: Reports: No symptoms : Reports: No symptoms Musculoskeletal: Reports: No symptoms Skin: Reports: No symptoms Neurological: Reports: Anxiety Endocrine: Reports: No symptoms Hematologic/Lymphatic: Reports: No symptoms All Other Systems: Reviewed and Negative Past Medical History - Past Medical History Previously Healthy: Yes Endocrine: Reports: DM 2, Dyslipidemia Cardiovascular: Reports: Hypertension, Other (HEART MURMUR ) Respiratory: Reports: COPD, Asthma Hematological: Reports: None Gastrointestinal: Reports: GERD Genitourinary: Reports: Kidney stones Neuro/Psych: Reports: Migraine, Bipolar Disorder Musculoskeletal: Reports: Arthritis, Back Pain (CHRONIC BACK PAIN ) Cancer: Reports: None Last Menstrual Period: HAS HAD HYSTERECTOMY Other Pertinent Past Medical History: LUMBAR SURGERY X2 GB C-SECTIONS X2 tonsillectomy [ End ] - Surgical History General Surgical History: Reports: Hysterectomy (HYSTERECTOMY 1991), ( x2), Cholecystectomy ( *LEFT GALL STONES THAT WERE N), Tonsillectomy, Back Surgery (LUMBAR SURGERY X2 ) - Family History Family History: Reports: Lung (asthma ) - Social History Smoking Status: Current every day smoker, Heavy tobacco smoker Hx Substance Use: No Alcohol Screening: None - Immunizations Tetanus Shot up to Date: Yes Physical Exam - Physical Exam Appearance: Ill-appearing, Thin Ill-appearing: Severe Eyes: TROY, EOMI, Conjunctiva clear ENT: Nose normal, Oropharynx normal Respiratory: Breath sounds equal, Wheezes, Retractions Cardiovascular: Pulses normal, No rub, No murmur, Tachycardia GI/: Soft, Nontender, No masses, Bowel sounds normal, No Organomegaly Musculoskeletal: Normal strength, ROM intact, No edema, No calf tenderness Skin: Warm, Dry, Normal color Neurological: Sensation intact, Motor intact, Reflexes intact, Cranial nerves intact, Alert, Oriented Psychiatric: Affect appropriate, Mood appropriate Re-Evaluation - Re-Evaluation Time of Re-Evaluation: 23:05 Status: Improved Vital Signs Stable: Yes Lungs: Other (less wheezing) Critical Care Note - Critical Care Note Total Time (mins): 45 Course - Course Hematology/Chemistry: 05/08/18 22:34 05/08/18 22:34 Orders, Labs, Meds: Lab Review 05/08/18 05/08/18 05/08/18 22:10 22:34 22:34 WBC 7.59 RBC 4.61 Hgb 12.9 Hct 40.0 MCV 86.8 MCH 28.0 MCHC 32.3 RDW Coeff of Paulina 13.3 Plt Count 227 Immature Gran % (Auto) 0.5 Neut % (Auto) 52.0 Lymph % (Auto) 40.4 [place] % (Auto) 7.0 Eos % (Auto) 0.0 Baso % (Auto) 0.1 Immature Gran # (Auto) 0.0 Neut # (Auto) 3.9 Lymph # (Auto) 3.1 [place] # (Auto) 0.5 Eos # (Auto) 0.0 Baso # (Auto) 0.0 Puncture Site Lrad O2 Saturation 94.0 L ABG pH 7.344 L ABG pCO2 38.7 ABG pO2 76.0 L ABG HCO3 21.1 L ABG Total CO2 22 ABG Base Excess -5 L Quentin Test + FiO2 % 21.0 Sodium 141.7 Potassium 4.07 Chloride 104.7 Carbon Dioxide 25.8 Anion Gap 15.27 BUN 10.2 Creatinine 0.72 Estimated GFR (MDRD) 84.00 BUN/Creatinine Ratio 14.16 Glucose 110.1 H Lactic Acid Calcium 9.51 Total Bilirubin 0.14 L AST 15.0 ALT 9.6 Alkaline Phosphatase 176.6 H Total Creatine Kinase 32.8 Troponin I < 0.012 NT-Pro-B Natriuret Pep Total Protein 7.39 Albumin 4.34 Globulin 3.05 Albumin/Globulin Ratio 1.42 Procalcitonin 05/08/18 05/08/18 05/08/18 22:34 22:34 22:34 WBC RBC Hgb Hct MCV MCH MCHC RDW Coeff of Paulina Plt Count Immature Gran % (Auto) Neut % (Auto) Lymph % (Auto) [place] % (Auto) Eos % (Auto) Baso % (Auto) Immature Gran # (Auto) Neut # (Auto) Lymph # (Auto) [place] # (Auto) Eos # (Auto) Baso # (Auto) Puncture Site O2 Saturation ABG pH ABG pCO2 ABG pO2 ABG HCO3 ABG Total CO2 ABG Base Excess Quentin Test FiO2 % Sodium Potassium Chloride Carbon Dioxide Anion Gap BUN Creatinine Estimated GFR (MDRD) BUN/Creatinine Ratio Glucose Lactic Acid 3.50 H Calcium Total Bilirubin AST ALT Alkaline Phosphatase Total Creatine Kinase Troponin I NT-Pro-B Natriuret Pep 27.000 Total Protein Albumin Globulin Albumin/Globulin Ratio Procalcitonin < 0.05 Orders Category Date Time Status ABG DRAW REQUEST Stat CARDIO 05/08/18 22:12 Completed EKG-(ED ONLY) Stat CARDIO 05/08/18 22:10 Completed NEBULIZER TREATMENT Stat CARDIO 05/08/18 22:23 Completed ED APPLY O2 .ONCE EMERGENCY 05/08/18 22:10 Active ED COAL WHEELER APPLIED .ONCE EMERGENCY 05/08/18 22:10 Active ED IV/MEDIPORT/POWERPORT .ONCE EMERGENCY 05/08/18 22:19 Active ED VITAL SIGNS Q1HR EMERGENCY 05/08/18 22:10 Active ABG Stat LAB 05/08/18 22:10 Completed BLOOD CULTURE (ED ONLY) Stat LAB 05/08/18 22:47 Received CBC W/ AUTO DIFF Stat LAB 05/08/18 22:34 Completed COMPREHENSIVE METABOLIC PANEL Stat LAB 05/08/18 22:34 Completed CREATINE KINASE Stat LAB 05/08/18 22:34 Completed LACTIC ACID Stat LAB 05/08/18 22:34 Completed NT-PROBNP Stat LAB 05/08/18 22:34 Completed PROCALCITONIN Stat LAB 05/08/18 22:34 Completed TROPONIN I Stat LAB 05/08/18 22:34 Completed 0.9 % Sodium Chloride [Saline Flush] MEDS 05/08/18 22:19 Ordered 1 syr IVF PRN PRN Ipratropium/Albuterol Neb [Duoneb] MEDS 05/08/18 22:23 Discontinued 1 vial NEB ONCE STA Methylprednisolone Sod Succ/Pf [Solu-Medrol 125 mg] MEDS 05/08/18 22:20 Discontinued 125 mg IVP ONCE STA Sodium Chloride 0.9% [Sodium Chloride] 1,000 ml MEDS 05/08/18 22:10 Active IV 100 mls/hr CHEST, 2 VIEWS PA & LAT Stat RADS 05/08/18 22:10 Completed Medications Generic Name Dose Route Start Last Admin Trade Name Freq PRN Reason Stop Dose Admin Sodium Chloride 1,000 mls @ 100 mls/hr 05/08/18 22:10 05/08/18 22:41 Sodium Chloride IV 05/09/18 08:09 Not Given .Q10H STA Sodium Chloride 1 syr 05/08/18 22:19 Saline Flush IVF PRN PRN To flush IV Discontinued Medications Generic Name Dose Route Start Last Admin Trade Name Freq PRN Reason Stop Dose Admin Albuterol/Ipratropium 1 vial 05/08/18 22:23 05/08/18 22:40 Duoneb NEB 05/08/18 22:24 1 vial ONCE STA Administration Methylprednisolone Sodium Succinate 125 mg 05/08/18 22:20 05/08/18 22:35 Solu-Medrol 125 Mg IVP 05/08/18 22:21 125 mg ONCE STA Administration Vital Signs: Temp Pulse Resp BP Pulse Ox 05/08/18 21:47 97.8 F 111 H 24 117/76 98 Departure - Departure Time of Disposition: 23:31 Disposition: HOME SELF-CARE Discharge Problem: COPD (chronic obstructive pulmonary disease) Qualifiers: COPD type: COPD with acute exacerbation Qualified Code(s): J44.1 - Chronic obstructive pulmonary disease with (acute) exacerbation Instructions: COPD (Chronic Obstructive Pulmonary Disease) (ED), How to Stop Smoking (ED) Condition: Good Pt referred to PMD for follow-up: Yes IPMP verified?: No Additional Instructions: Keep Apt with your PCP tomorrow STOP smoking Prescriptions: Prednisone 20 mg PO DAILYWM #5 tablet Allergies/Adverse Reactions: Allergies ibuprofen Allergy (Severe, Verified 05/08/18 21:55) CANT BREATHE aspirin Adverse Reaction (Verified 05/08/18 21:55) Unknown blue dye Adverse Reaction (Verified 05/08/18 21:55) Unknown ketorolac tromethamine [From Toradol] Adverse Reaction (Verified 05/08/18 21:55) Unknown levofloxacin [From Levaquin] Adverse Reaction (Verified 05/08/18 21:55) Unknown NSAIDS (Non-Steroidal Anti-Inflamma Adverse Reaction (Verified 05/08/18 21:55) Unknown oxaprozin [From Daypro] Adverse Reaction (Verified 05/08/18 21:55) Unknown sulfamethoxazole [From Bactrim] Adverse Reaction (Verified 05/08/18 21:55) Unknown trimethoprim [From Bactrim] Adverse Reaction (Verified 05/08/18 21:55) Unknown Home Medications: Ambulatory Orders Metformin HCl [Fortamet] 500 mg PO BID 12/27/13 Ropinirole HCl [Requip] 3 mg PO BEDTIME 12/27/13 Quetiapine Fumarate [Seroquel] 400 mg PO BEDTIME 02/07/15 Ipratropium/Albuterol Neb [Duoneb] 1 vial NEB RTQ6H PRN #90 vial.neb 11/12/15 Hydrocodone/Acetaminophen [[place] 10-325 Tablet] 10 mg PO Q6HR PRN 05/11/16 Lisinopril [Zestril] 2.5 mg PO DAILY #30 tablet 05/02/17 Atorvastatin Calcium [Lipitor] 20 mg PO DAILY 08/15/17 Butalb/Acetaminophen/Caffeine [Fioricet 50-300-40 mg Capsule] 1 each PO DIRECTED PRN 08/15/17 Ipratropium/Albuterol Neb [Duoneb] 1 vial NEB RTQ8H #90 vial.neb 08/16/17 Albuterol Sulfate [Ventolin Hfa] 18 gm IH PRN PRN 11/15/17 Amitriptyline HCl 50 mg PO DAILY 11/15/17 Theophylline Anhydrous [Simone-24] 400 mg PO DAILY 11/15/17 Fluticasone/Salmeterol [Fluticasone-Salmeterol 113-14] 1 inh PO BID 05/08/18 Prednisone 20 mg PO DAILYWM #5 tablet 05/08/18 Disposition Discussed With: Patient, Family
[2018-05-08] MEDS ORDERED: SOLU-MEDROL 125 MG IVP STA (22:20)
[2018-05-08] MEDS ORDERED: DUONEB NEB STA (22:23)
[2018-05-08] MEDS: SODIUM CHLORIDE 1,000 ML IV STA ×2 (22:36→22:41)
--- NOTE | 2018-05-08 22:48 | DI ---
EXAM: Chest two views HISTORY: Shortness of breath FINDINGS: Normal cardiac and mediastinal contours. Normal pulmonary vasculature. Lungs are clear. The lungs are hyperexpanded. No significant abnormality of the bony thorax. IMPRESSION: Probable component of chronic obstructive pulmonary disease. No acute abnormalities are seen.
== END 2018-05-08 23:45 | disposition home or self-care (01) ==
LOC: ED 21:47
DX: J44.1 Chronic obstructive pulmonary disease with (acute) exacerbation (principal); F17.210 Nicotine dependence, cigarettes, uncomplicated; E11.9 Type 2 diabetes mellitus without complications; E78.5 Hyperlipidemia, unspecified; I10 Essential (primary) hypertension; R06.02 Shortness of breath; Z79.899 Other long term (current) drug therapy
CPT/HCPCS: 36415; 80053; 82550; 82803; 83605; 83880; 84145; 84484; 85025; 87040; 93005; 93010; 94640; 96360; 96361; 96374; 96375; 99284

== ENCOUNTER 2018-07-29 10:52 | Outpatient (CLI) | END 2018-07-29 11:18 | disposition short-term general hospital (02) | LOC: AMBL 10:52 | PROVIDERS: ATTEND Emergency Medicine | DX: R06.2 Wheezing (principal); R06.03 Acute respiratory distress ==

== ENCOUNTER 2019-01-07 15:41 | Observation (INO) ==
[2019-01-07] MEDS ORDERED: DUONEB NEB STA (15:48)
--- NOTE | 2019-01-07 16:33 | DI ---
EXAM: Chest one view HISTORY: Cough COMPARISON: 11/03/2018 TECHNIQUE: Single view of the chest was performed FINDINGS: The lungs are clear. There is no pleural effusion or pneumothorax. The heart is normal i n size. The mediastinal contour is normal. There are no acute abnormalities of the bones. IMPRESSION: No acute cardiopulmonary process.
[2019-01-07] MEDS ORDERED: SOLU-MEDROL 40 MG IVP STA (17:33)
--- NOTE | 2019-01-07 18:59 | ED.PDOC ---
General ED Provider: Dr. THU HDZ Chief Complaint: Shortness of Air Stated Complaint: sob Time Seen by Physician: 15:44 Mode of Arrival: Ambulance Information Source: Patient and EMT Primary Care Provider: TYRELL ANGEL Nursing and Triage Documentation Reviewed and Agree: Yes Does patient meet sepsis criteria?: No If yes, has appropriate treatment been initiated?: No System Inflammatory Response Syndrome: Not Applicable Sepsis Protocol: For patient's 13 years and over: Temp is 96.8 and below OR 101 and greater Pulse >90 BPM Resp >20/minute Acutely Altered Mental Status Are patient's symptoms suggestive of a new infection, such as: -Pneumonia -Skin, Soft Tissue -Endocarditis -UTI -Bone, Joint Infection -Implantable Device -Acute Abdominal Infection -Wound Infection -Meningitis -Blood Stream Catheter Infection -Unknown Respiratory Complaint Exam Respiratory Complaint/Exam Onset/Duration: today Symptoms Are: Still present Timing: Constant Initial Severity: Moderate Current Severity: Moderate Location: Nose and Chest Character: Reports Non-productive cough Aggravating: Reports None Alleviating: Reports None History of Healthcare-Acquired Pneumonia: No Related Surgical History: Reports None Pulmonary Embolism Risk Factors: Smoking Tuberculosis Risk Factors: Reports None and Smoking Recent Stress Test: No Recent Echo/LV Function: No Current Antibiotic Use: No Current Asthma Medication Use: No Inadequate Respiratory Effort: No Stridor Present: No JVD Present: No Accessory Muscle Use: No Retractions: Not Present Grunting Respirations: No Kussmaul Respirations: No Differential Diagnoses: COPD Exacerbation and Pneumonia Review of Systems Review Of Systems Constitutional: Reports No symptoms Eyes: Reports No symptoms Ears, Nose, Mouth, Throat: Reports No symptoms Respiratory: Reports Short of air and Wheezing Cardiac: Reports No symptoms GI: Reports No symptoms : Reports No symptoms Musculoskeletal: Reports No symptoms Skin: Reports No symptoms Neurological: Reports No symptoms Endocrine: Reports No symptoms Hematologic/Lymphatic: Reports No symptoms All Other Systems: Reviewed and Negative [facility] Medical History (Updated 01/07/19 @ 18:59 by THU HDZ MD) Asthma Chronic arthritis Chronic obstructive pulmonary disease Diabetes mellitus Hyperlipidemia Hypertension Family History Mother Diabetes Cerebrovascular accident Hypertension Father Cardiac disease Other Skin cancer Social History History of recent travel: No Female Reproductive History Menstrual Hx Hysterectomy: Yes (1991) Hx Tubal Ligation: No Physical Exam Physical Exam Appearance: Well-appearing, No pain distress and Well-nourished Eyes: TROY, EOMI and Conjunctiva clear ENT: Ears normal, Nose normal and Oropharynx normal Respiratory: Wheezes Cardiovascular: RRR, Pulses normal, No rub and No murmur GI/: Soft, Nontender, No masses, Bowel sounds normal and No Organomegaly Musculoskeletal: Normal strength, ROM intact, No edema and No calf tenderness Skin: Warm, Dry and Normal color Neurological: Sensation intact, Motor intact, Reflexes intact, Cranial nerves intact, Alert and Oriented Psychiatric: Affect appropriate and Mood appropriate Interpretation Radiology Interpretation Radiology Interpretation By: Radiologist Radiology Results: No acute changes Exam Interpreted: CT Scan Physician Notification Case Discussed Physician Notified: pmd Time of Notification: 18:58 (admitt) Critical Care Note Critical Care Note Total Time (mins): 0 Course Course Hematology/Chemistry: 01/07/19 16:08 01/07/19 16:08 Orders, Labs, Meds: Lab Review 01/07/19 01/07/19 01/07/19 15:48 16:08 16:08 WBC 8.06 RBC 4.12 L Hgb 11.5 L Hct 34.6 L MCV 84.0 MCH 27.9 MCHC 33.2 RDW Coeff of Paulina 14.0 Plt Count 243 Immature Gran % (Auto) 0.4 Neut % (Auto) 69.5 Lymph % (Auto) 22.2 [place] % (Auto) 7.4 Eos % (Auto) 0.0 Baso % (Auto) 0.5 Immature Gran # (Auto) 0.0 Neut # (Auto) 5.6 Lymph # (Auto) 1.8 [place] # (Auto) 0.6 Eos # (Auto) 0.0 Baso # (Auto) 0.0 D-Dimer (Manual) Puncture Site Rrad O2 Saturation 99.0 ABG pH 7.425 ABG pCO2 33.2 L ABG pO2 113.0 H ABG HCO3 21.8 L ABG Total CO2 23 ABG Base Excess -3 L Quentin Test + O2 Delivery Device Nc Oxygen Liter Flow 2.00 Sodium 138.6 Potassium 3.73 Chloride 103.3 Carbon Dioxide 23.8 Anion Gap 15.23 BUN 8.0 Creatinine 0.61 Estimated GFR (MDRD) 102.00 BUN/Creatinine Ratio 13.11 Glucose 133.2 H Calcium 9.73 Total Bilirubin 0.30 AST 16.3 ALT 15.4 Alkaline Phosphatase 155.4 H Total Creatine Kinase 53.5 Troponin I < 0.012 Total Protein 7.53 Albumin 4.24 Globulin 3.29 Albumin/Globulin Ratio 1.28 01/07/19 17:30 WBC RBC Hgb Hct MCV MCH MCHC RDW Coeff of Paulina Plt Count Immature Gran % (Auto) Neut % (Auto) Lymph % (Auto) [place] % (Auto) Eos % (Auto) Baso % (Auto) Immature Gran # (Auto) Neut # (Auto) Lymph # (Auto) [place] # (Auto) Eos # (Auto) Baso # (Auto) D-Dimer (Manual) 539.70 Puncture Site O2 Saturation ABG pH ABG pCO2 ABG pO2 ABG HCO3 ABG Total CO2 ABG Base Excess Quentin Test O2 Delivery Device Oxygen Liter Flow Sodium Potassium Chloride Carbon Dioxide Anion Gap BUN Creatinine Estimated GFR (MDRD) BUN/Creatinine Ratio Glucose Calcium Total Bilirubin AST ALT Alkaline Phosphatase Total Creatine Kinase Troponin I Total Protein Albumin Globulin Albumin/Globulin Ratio Orders Category Date Time Status ABG DRAW REQUEST Stat CARDIO 01/07/19 15:48 Completed EKG-(ED ONLY) Stat CARDIO 01/07/19 15:50 Completed NEBULIZER TREATMENT Stat CARDIO 01/07/19 15:48 Completed NPO REMINDER: IMAGING ONCE CARE 01/07/19 17:22 Active ABG Stat LAB 01/07/19 15:48 Completed CBC W/ AUTO DIFF Stat LAB 01/07/19 16:08 Completed COMPREHENSIVE METABOLIC PANEL Stat LAB 01/07/19 16:08 Completed CREATINE KINASE Stat LAB 01/07/19 16:08 Completed D-DIMER Stat LAB 01/07/19 17:30 Completed TROPONIN I Stat LAB 01/07/19 16:08 Completed Ipratropium/Albuterol Neb [Duoneb] MEDS 01/07/19 15:48 Discontinued 3 ml NEB ONCE STA Methylprednisolone Sod Succ/Pf [Solu-Medrol 40 mg] MEDS 01/07/19 17:33 Discontinued 40 mg IVP ONCE STA CHEST, 1V AP ONLY Stat RADS 01/07/19 15:52 Completed Medications Discontinued Medications Generic Name Dose Route Start Last Admin Trade Name Freq PRN Reason Stop Dose Admin Albuterol/Ipratropium 3 ml 01/07/19 15:48 01/07/19 16:01 Duoneb NEB 01/07/19 15:49 3 ml ONCE STA Administration Methylprednisolone Sodium Succinate 40 mg 01/07/19 17:33 01/07/19 17:41 Solu-Medrol 40 Mg IVP 01/07/19 17:34 40 mg ONCE STA Administration Vital Signs: Temp Pulse Resp BP Pulse Ox 01/07/19 15:42 98.8 F 138 H 28 H 116/79 95 Discharge Plan Discharge Patient Disposition: ADMITTED INPATIENT Discharge Problem: Shortness of breath, COPD exacerbation Prescriptions: No Action ropinirole [Requip] 2 MG tablet 3 mg PO BEDTIME RF: 0 metformin [Fortamet] 500 MG tablet extended release 24hr 500 mg PO BID RF: 0 quetiapine [Seroquel] 300 MG tablet 400 mg PO BEDTIME RF: 0 ipratropium-albuterol 1 VIAL solution for nebulization 1 vial NEB RTQ6H PRN (Reason: shortness of breath. ) Qty: 90 RF: 0 amitriptyline 50 MG tablet 50 mg PO BEDTIME RF: 0 albuterol sulfate [Ventolin HFA] 18 GM HFA aerosol inhaler 18 g inhalation PRN PRN (Reason: soa) RF: 0 Simone-24 400 MG capsule,extended release 24hr 400 mg PO DAILY RF: 0 lisinopril [Zestril] 2.5 MG tablet 2.5 mg PO DAILY Qty: 30 RF: 0 atorvastatin 20 MG tablet 20 mg PO DAILY RF: 0 hydrocodone-acetaminophen 1 TAB tablet 5 - 325 mg PO TID PRN (Reason: Moderate Pain) RF: 0 Incruse Ellipta 62.5 MCG blister with device 62.5 mcg inhalation DAILY RF: 0 ED Provider: THU HDZ Condition: Good
--- NOTE | 2019-01-07 19:11 | ED.PDOC ---
General ED Provider: Dr. THU HDZ Chief Complaint: Shortness of Air Stated Complaint: SOB Time Seen by Physician: 15:00 Mode of Arrival: Ambulance Information Source: Patient and EMT Primary Care Provider: TYRELL ANGEL Nursing and Triage Documentation Reviewed and Agree: Yes Does patient meet sepsis criteria?: No If yes, has appropriate treatment been initiated?: No System Inflammatory Response Syndrome: Not Applicable Sepsis Protocol: For patient's 13 years and over: Temp is 96.8 and below OR 101 and greater Pulse >90 BPM Resp >20/minute Acutely Altered Mental Status Are patient's symptoms suggestive of a new infection, such as: -Pneumonia -Skin, Soft Tissue -Endocarditis -UTI -Bone, Joint Infection -Implantable Device -Acute Abdominal Infection -Wound Infection -Meningitis -Blood Stream Catheter Infection -Unknown Respiratory Complaint Exam Respiratory Complaint/Exam Onset/Duration: TODAY Symptoms Are: Still present Initial Severity: Mild Current Severity: Mild Location: Nose Character: Reports Non-productive cough Associated Signs and Symptoms: Denies Rapid breathing, Dyspnea, Fever, Chills, Chest pain, Pleuritic chest pain, Wheezing, Hemoptysis, Dizziness, Calf pain, Calf swelling, Edema, URI, Nasal congestion, Hoarseness, Sinus discomfort, Vomiting, Sore throat, Weight loss, Decreased oral intake, Increased thirst, Increased appetite and Increased urination Cardiac Risk Factors: Reports Smoking Tuberculosis Risk Factors: Reports Chronic Resp. Faliure Status Asthmaticus Risk Factors: Reports None Home Oxygen Use: No Recent Stress Test: No Recent Echo/LV Function: No Current Antibiotic Use: No Current Asthma Medication Use: No Respiratory Distress: None Inadequate Respiratory Effort: No Dysphagia Present: No Stridor Present: No Accessory Muscle Use: No Retractions: Not Present Diminished Breath Sounds: No Grunting Respirations: No Kussmaul Respirations: No Differential Diagnoses: COPD Exacerbation Review of Systems Review Of Systems Constitutional: Reports No symptoms Eyes: Reports No symptoms Ears, Nose, Mouth, Throat: Reports No symptoms Respiratory: Reports Short of air Cardiac: Reports No symptoms GI: Reports No symptoms : Reports No symptoms Musculoskeletal: Reports No symptoms Skin: Reports No symptoms Neurological: Reports No symptoms Endocrine: Reports No symptoms Hematologic/Lymphatic: Reports No symptoms All Other Systems: Reviewed and Negative [facility] Medical History (Updated 01/07/19 @ 18:59 by THU HDZ MD) Asthma Chronic arthritis Chronic obstructive pulmonary disease Diabetes mellitus Hyperlipidemia Hypertension Family History Mother Diabetes Cerebrovascular accident Hypertension Father Cardiac disease Other Skin cancer Social History History of recent travel: No Female Reproductive History Menstrual Hx Hysterectomy: Yes (1991) Hx Tubal Ligation: No Physical Exam Physical Exam Appearance: Well-appearing, No pain distress and Well-nourished Eyes: TROY, EOMI and Conjunctiva clear ENT: Ears normal, Nose normal and Oropharynx normal Respiratory: Airway patent, Breath sounds clear, Breath sounds equal and Respi rations nonlabored Cardiovascular: RRR, Pulses normal, No rub and No murmur GI/: Soft, Nontender, No masses, Bowel sounds normal and No Organomegaly Musculoskeletal: Normal strength, ROM intact, No edema and No calf tenderness Skin: Warm, Dry and Normal color Neurological: Sensation intact, Motor intact, Reflexes intact, Cranial nerves intact, Alert and Oriented Psychiatric: Affect appropriate and Mood appropriate Critical Care Note Critical Care Note Total Time (mins): 0 Course Course Hematology/Chemistry: 01/07/19 16:08 01/07/19 16:08 Orders, Labs, Meds: Lab Review 01/07/19 01/07/19 01/07/19 15:48 16:08 16:08 WBC 8.06 RBC 4.12 L Hgb 11.5 L Hct 34.6 L MCV 84.0 MCH 27.9 MCHC 33.2 RDW Coeff of Paulina 14.0 Plt Count 243 Immature Gran % (Auto) 0.4 Neut % (Auto) 69.5 Lymph % (Auto) 22.2 [place] % (Auto) 7.4 Eos % (Auto) 0.0 Baso % (Auto) 0.5 Immature Gran # (Auto) 0.0 Neut # (Auto) 5.6 Lymph # (Auto) 1.8 [place] # (Auto) 0.6 Eos # (Auto) 0.0 Baso # (Auto) 0.0 D-Dimer (Manual) Puncture Site Rrad O2 Saturation 99.0 ABG pH 7.425 ABG pCO2 33.2 L ABG pO2 113.0 H ABG HCO3 21.8 L ABG Total CO2 23 ABG Base Excess -3 L Quentin Test + O2 Delivery Device Nc Oxygen Liter Flow 2.00 Sodium 138.6 Potassium 3.73 Chloride 103.3 Carbon Dioxide 23.8 Anion Gap 15.23 BUN 8.0 Creatinine 0.61 Estimated GFR (MDRD) 102.00 BUN/Creatinine Ratio 13.11 Glucose 133.2 H Calcium 9.73 Total Bilirubin 0.30 AST 16.3 ALT 15.4 Alkaline Phosphatase 155.4 H Total Creatine Kinase 53.5 Troponin I < 0.012 Total Protein 7.53 Albumin 4.24 Globulin 3.29 Albumin/Globulin Ratio 1.28 01/07/19 17:30 WBC RBC Hgb Hct MCV MCH MCHC RDW Coeff of Paulina Plt Count Immature Gran % (Auto) Neut % (Auto) Lymph % (Auto) [place] % (Auto) Eos % (Auto) Baso % (Auto) Immature Gran # (Auto) Neut # (Auto) Lymph # (Auto) [place] # (Auto) Eos # (Auto) Baso # (Auto) D-Dimer (Manual) 539.70 Puncture Site O2 Saturation ABG pH ABG pCO2 ABG pO2 ABG HCO3 ABG Total CO2 ABG Base Excess Quentin Test O2 Delivery Device Oxygen Liter Flow Sodium Potassium Chloride Carbon Dioxide Anion Gap BUN Creatinine Estimated GFR (MDRD) BUN/Creatinine Ratio Glucose Calcium Total Bilirubin AST ALT Alkaline Phosphatase Total Creatine Kinase Troponin I Total Protein Albumin Globulin Albumin/Globulin Ratio Orders Category Date Time Status ABG DRAW REQUEST Stat CARDIO 01/07/19 15:48 Completed EKG-(ED ONLY) Stat CARDIO 01/07/19 15:50 Completed NEBULIZER TREATMENT Stat CARDIO 01/07/19 15:48 Completed NPO REMINDER: IMAGING ONCE CARE 01/07/19 17:22 Active ABG Stat LAB 01/07/19 15:48 Completed CBC W/ AUTO DIFF Stat LAB 01/07/19 16:08 Completed COMPREHENSIVE METABOLIC PANEL Stat LAB 01/07/19 16:08 Completed CREATINE KINASE Stat LAB 01/07/19 16:08 Completed D-DIMER Stat LAB 01/07/19 17:30 Completed TROPONIN I Stat LAB 01/07/19 16:08 Completed Amitriptyline HCl [Elavil] MEDS 01/07/19 21:00 Ordered 50 mg PO BEDTIME Atorvastatin Calcium [Lipitor] MEDS 01/08/19 09:00 Ordered 20 mg PO DAILY Ipratropium/Albuterol Neb [Duoneb] MEDS 01/07/19 15:48 Discontinued 3 ml NEB ONCE STA Lisinopril [Zestril] MEDS 01/08/19 09:00 Ordered 2.5 mg PO DAILY Methylprednisolone Sod Succ/Pf [Solu-Medrol 40 mg] MEDS 01/07/19 17:33 Di scontinued 40 mg IVP ONCE STA Quetiapine Fumarate [Seroquel] MEDS 01/07/19 21:00 Ordered 400 mg PO BEDTIME Ropinirole HCl [Requip] MEDS 01/07/19 21:00 Ordered 3 mg PO BEDTIME metformin [Fortamet] MEDS 01/07/19 21:00 Ordered 500 mg PO BID theophylline [Simone-24] MEDS 01/08/19 09:00 Ordered 400 mg PO DAILY CHEST, 1V AP ONLY Stat RADS 01/07/19 15:52 Completed Medications Discontinued Medications Generic Name Dose Route Start Last Admin Trade Name Freq PRN Reason Stop Dose Admin Albuterol/Ipratropium 3 ml 01/07/19 15:48 01/07/19 16:01 Duoneb NEB 01/07/19 15:49 3 ml ONCE STA Administration Methylprednisolone Sodium Succinate 40 mg 01/07/19 17:33 01/07/19 17:41 Solu-Medrol 40 Mg IVP 01/07/19 17:34 40 mg ONCE STA Administration Vital Signs: Temp Pulse Resp BP Pulse Ox 01/07/19 15:42 98.8 F 138 H 28 H 116/79 95 Discharge Plan Discharge Patient Disposition: ADMITTED INPATIENT Discharge Problem: Shortness of breath, COPD exacerbation ED Provider: THU HDZ Condition: Good
[2019-01-07] MEDS ORDERED: ROCEPHIN 1 GM/50 ML D5W 1 GM/50 ML BAG IV STA (19:13)
[2019-01-07] MEDS: SODIUM CHLORIDE 1,000 ML IV SCH (20:26)
[2019-01-07 20:27] VITALS: BMI 17.6
[2019-01-07] MEDS: SOLU-MEDROL 40 MG IVP SCH (21:01)
[2019-01-07] MEDS: SEROQUEL PO SCH (21:01)
[2019-01-07] MEDS: ELAVIL PO SCH (21:02)
[2019-01-07] MEDS: REQUIP PO SCH (21:02)
[2019-01-07] MEDS: GLUCOPHAGE PO SCH (21:02)
[2019-01-07] MEDS: NICODERM 21 MG TD SCH (21:57)
[2019-01-07] MEDS: NORCO 5-325 PO PRN (21:57)
[2019-01-07] MEDS: DUONEB NEB SCH (23:30)
[2019-01-08] MEDS: DUONEB NEB SCH ×3 (04:50→16:58)
[2019-01-08] MEDS: NORCO 5-325 PO PRN ×3 (06:41→20:13)
[2019-01-08] MEDS: THEOPHYLLINE ER 24HR PO SCH (08:48)
[2019-01-08] MEDS: SOLU-MEDROL 40 MG IVP SCH (08:48)
[2019-01-08] MEDS: GLUCOPHAGE PO SCH ×2 (08:48→17:05)
[2019-01-08] MEDS: LIPITOR PO SCH (08:48)
[2019-01-08] MEDS ORDERED: ZESTRIL PO SCH (09:00)
[2019-01-08] MEDS: NICODERM 21 MG TD SCH (09:48)
[2019-01-08] MEDS: SODIUM CHLORIDE 1,000 ML IV SCH (09:49)
[2019-01-08] MEDS: INFUVITE ADULT 10 ML in D5%-1/2NS-KCL 20 MEQ/L IV SOL 1,000 ML IV SCH (15:20)
[2019-01-08] MEDS: SOLU-CORTEF 250 MG IVP SCH ×2 (17:41→23:30)
[2019-01-08] MEDS ORDERED: XOPENEX 1.25 MG NEB PRN (19:10)
[2019-01-08] MEDS: CARDIZEM PO SCH ×2 (20:09→21:47)
[2019-01-08] MEDS: SEROQUEL PO SCH (20:09)
[2019-01-08] MEDS: ELAVIL PO SCH (20:10)
[2019-01-08] MEDS: REQUIP PO SCH (20:10)
[2019-01-08] MEDS: XOPENEX 1.25 MG NEB SCH ×2 (21:41→23:57)
[2019-01-08] MEDS ORDERED: ALBUTEROL 0.042% NEB NEB PRN (21:48)
[2019-01-09] MEDS ORDERED: INFUVITE ADULT IV ONE (02:24)
[2019-01-09] MEDS: INFUVITE ADULT 10 ML in D5%-1/2NS-KCL 20 MEQ/L IV SOL 1,000 ML IV SCH (03:24)
[2019-01-09] MEDS: XOPENEX 1.25 MG NEB SCH ×2 (04:50→10:52)
[2019-01-09] MEDS: SOLU-CORTEF 250 MG IVP SCH ×4 (05:45→23:57)
[2019-01-09] MEDS: CARDIZEM PO SCH ×2 (05:45→06:09)
[2019-01-09] MEDS: LIPITOR PO SCH (08:45)
[2019-01-09] MEDS: GLUCOPHAGE PO SCH ×2 (08:45→17:13)
[2019-01-09] MEDS: NICODERM 21 MG TD SCH (08:45)
[2019-01-09] MEDS: THEOPHYLLINE ER 24HR PO SCH (08:45)
[2019-01-09] MEDS: NORCO 5-325 PO PRN ×2 (09:07→17:30)
[2019-01-09] MEDS ORDERED: INFUVITE ADULT IV SCH (11:30)
[2019-01-09] MEDS ORDERED: [UNRECOGNIZED DRUG - OTHER] IV SCH (11:30)
[2019-01-09] MEDS ORDERED: POTASSIUM CHLORIDE IV SCH (11:30)
[2019-01-09] MEDS ORDERED: ADDITIVE ONLY IV SCH (11:30)
[2019-01-09] MEDS: DUONEB NEB SCH ×3 (14:03→21:01)
[2019-01-09] MEDS: INFUVITE ADULT 10 ML in SODIUM CHLORIDE 0.45%-KCL 20 MEQ 1,000 ML IV SCH (14:09)
[2019-01-09] MEDS ORDERED: ATIVAN PO STA ×2 (17:44→21:57)
[2019-01-09] MEDS: REQUIP PO SCH (20:11)
[2019-01-09] MEDS: SEROQUEL PO SCH (20:11)
[2019-01-09] MEDS: LOVENOX SUBCUT SCH (20:11)
[2019-01-09] MEDS: ELAVIL PO SCH (20:12)
[2019-01-09] MEDS ORDERED: CARDIZEM PO SCH ×2 (21:00)
[2019-01-09] MEDS ORDERED: CARDIZEM PO STA (23:18)
[2019-01-10] MEDS: DUONEB NEB SCH ×6 (00:10→21:05)
[2019-01-10] MEDS ORDERED: INFUVITE ADULT IV ONE ×2 (02:07→14:29)
[2019-01-10] MEDS: INFUVITE ADULT 10 ML in SODIUM CHLORIDE 0.45%-KCL 20 MEQ 1,000 ML IV SCH ×2 (02:12→14:33)
[2019-01-10] MEDS: SOLU-CORTEF 250 MG IVP SCH ×4 (05:31→20:23)
[2019-01-10] MEDS ORDERED: CARDIZEM PO SCH (08:00)
[2019-01-10] MEDS: NICODERM 21 MG TD SCH (09:00)
[2019-01-10] MEDS: ZESTRIL PO SCH (09:01)
[2019-01-10] MEDS: LIPITOR PO SCH (09:01)
[2019-01-10] MEDS: CARDIZEM PO SCH ×3 (09:01→20:23)
[2019-01-10] MEDS: NORCO 5-325 PO PRN ×2 (09:01→16:32)
[2019-01-10] MEDS: THEOPHYLLINE ER 24HR PO SCH (09:01)
[2019-01-10] MEDS: GLUCOPHAGE PO SCH ×2 (09:02→16:32)
[2019-01-10] MEDS: LOVENOX SUBCUT SCH (09:02)
[2019-01-10] MEDS: ATIVAN PO SCH (17:12)
[2019-01-10] MEDS: SEROQUEL PO SCH (20:22)
[2019-01-10] MEDS: ELAVIL PO SCH (20:22)
[2019-01-10] MEDS: REQUIP PO SCH (20:22)
[2019-01-11] MEDS: DUONEB NEB SCH ×6 (00:43→21:15)
[2019-01-11] MEDS ORDERED: INFUVITE ADULT IV ONE ×2 (01:35→13:42)
[2019-01-11] MEDS: INFUVITE ADULT 10 ML in SODIUM CHLORIDE 0.45%-KCL 20 MEQ 1,000 ML IV SCH ×2 (01:40→13:46)
[2019-01-11] MEDS: ATIVAN PO SCH ×4 (05:42→17:15)
[2019-01-11] MEDS: CARDIZEM PO SCH ×3 (05:43→21:05)
[2019-01-11] MEDS: ZESTRIL PO SCH (08:24)
[2019-01-11] MEDS: THEOPHYLLINE ER 24HR PO SCH (08:24)
[2019-01-11] MEDS: SOLU-CORTEF 250 MG IVP SCH ×2 (08:25→21:05)
[2019-01-11] MEDS: GLUCOPHAGE PO SCH ×2 (08:25→17:15)
[2019-01-11] MEDS: NICODERM 21 MG TD SCH (08:29)
[2019-01-11] MEDS: LIPITOR PO SCH (08:30)
[2019-01-11] MEDS: LOVENOX SUBCUT SCH (08:30)
[2019-01-11] MEDS: REQUIP PO SCH (21:04)
[2019-01-11] MEDS: SEROQUEL PO SCH (21:04)
[2019-01-11] MEDS: ELAVIL PO SCH (21:04)
[2019-01-11] MEDS: NORCO 5-325 PO PRN (21:05)
[2019-01-11] MEDS: PULMICORT 0.5 MG/2 ML NEB SCH ×2 (21:15→22:02)
[2019-01-12] MEDS: ATIVAN PO SCH ×3 (00:14→12:30)
[2019-01-12] MEDS: DUONEB NEB SCH ×4 (00:17→13:51)
[2019-01-12] MEDS ORDERED: INFUVITE ADULT IV ONE (01:31)
[2019-01-12] MEDS: INFUVITE ADULT 10 ML in SODIUM CHLORIDE 0.45%-KCL 20 MEQ 1,000 ML IV SCH (01:32)
[2019-01-12] MEDS: PULMICORT 0.5 MG/2 ML NEB SCH (04:43)
[2019-01-12] MEDS: CARDIZEM PO SCH ×2 (05:43→12:30)
[2019-01-12] MEDS: SOLU-CORTEF 250 MG IVP SCH (08:01)
[2019-01-12] MEDS: GLUCOPHAGE PO SCH (08:55)
[2019-01-12] MEDS: THEOPHYLLINE ER 24HR PO SCH (08:57)
[2019-01-12] MEDS: ZESTRIL PO SCH (08:59)
[2019-01-12] MEDS: LIPITOR PO SCH (09:04)
[2019-01-12] MEDS: NICODERM 21 MG TD SCH (09:07)
[2019-01-12] MEDS: LOVENOX SUBCUT SCH (09:08)
--- NOTE | 2019-01-12 11:00 | CONS ---
DATE OF CONSULTATION: 01/08/19 REASON FOR CONSULTATION: Tachycardia (sinus). HISTORY OF PRESENT ILLNESS: 53-year-old female presented to the ER with shortness of air starting on the - productive of yellow phlegm. Chest pain on Saturday (). Home treatment 02, nebulizer treatment, inhaler. Primary care physician is Magda Haynes. REVIEW OF SYSTEMS: CONSTITUTIONAL: No night sweats. No fatigue, malaise, lethargy. No fever or chills. HEENT: Eyes: No visual changes. No eye pain. No eye discharge. ENT: No sinus drainage. No epistaxis. No sinus pain. No sore throat. No odynophagia. No ear pain. No congestion. RESPIRATORY: Cough - yes with yellow phlegm at times. No hemoptysis. Shortness of air. CARDIOVASCULAR: No angina symptoms. No CHF symptoms. No atypical chest pain for CAD. No palpitations. No orthopnea. GASTROINTESTINAL: No abdominal pain. No nausea or vomiting. No diarrhea or constipation. No hematemesis. No hematochezia. GENITOURINARY: No urgency. No frequency. No dysuria. No hematuria. No obstructive symptoms. No discharge. No pain. No significant abnormal bleeding. MUSCULOSKELETAL: Chronic osteoarthritic pain. Right footdrop. NEUROLOGICAL: No headache. No neck pain. No syncope. No seizures. No dizziness. PSYCHIATRIC: Positive for depression. Not anxious. No suicidal thoughts. No homicidal thoughts. SKIN: No rash. No lesions. No wounds. ENDOCRINE: Warm and dry. HEMATOLOGIC/LYMPHATIC: No anemia. No purpura. No petechiae. No prolonged or excessive bleeding. No palpable lymph nodes. MEDICATIONS: Ventolin HFA Atorvastatin Amitriptyline Duoneb Fortamet Zestril Requip Seroquel Theophylline 24 Increase Ellipta ALLERGIES: KETOROLAC, IODINATED CONTRAST MEDIA, NSAIDS, ASPIRIN, IBUPROFEN, SULFAMETHOXAZOLE, TRIMETHOPRIM, OXAPROZIN, LEVOFLOXACIN, BLUE DYE PAST MEDICAL HISTORY: Degenerative disk disease Bipolar disorder Diabetes mellitus type 2 COPD, CAD Dyslipidemia History of tachyarrhythmia (back to 2013) *Echocardiogram 2015 LVEF 53%, enlarged right ventricle, valves normal LV contractility. # Has 02, nebulizer and wheelchair PAST SURGICAL HISTORY: Laminectomy times two Cholecystectomy Hysterectomy SOCIAL/PERSONAL/FAMILY HISTORY: Smoker 20 plus years. Three packs to 1/1 pack per day. No alcohol use. , lives with son and [id number]. Family History: MS, diabetes mellitus, cancer, COPD. PHYSICAL EXAMINATION: GENERAL: The patient is oriented times three. VITAL SIGNS: Pulse 105, BP 79/41; rechecked in one hour 94/50, temperature 97.1, 02 sat 99% on 2L, Weight 119 lbs, BMI 17.6 HEENT: Head normocephalic, atraumatic. Eyes: Extraocular muscles are intact. Pupils are equal, round and reactive to light and accommodation. Ears: No lesions. Nose appeared normal. Throat: No exudate or erythema. NECK: Supple. No JVD, no carotid bruit. No lymphadenopathy or thyromegaly. LUNGS: Decresed breath sounds, mild wheeze. Percussion note normal. Chest symmetrical. HEART: S1, S2, no S3. No murmurs. No cyanosis. Positive for mild clubbing. No ascites. Pulses: Dorsalis pedis and posterior tibial pulses +2 bilaterally. ABDOMEN: Soft. Nontender. Bowel sounds active. No CVA tenderness. No mass felt. EXTREMITIES: No edema. Full range of motion of all extremities, equal. NEUROLOGIC: No focal deficit. Cranial nerves II through XII are grossly intact. No headache, no double vision or headache. SKIN: Not dry. Intact. Turgor - normal. LYMPHATIC: No palpable lymph nodes/no lymphedema. MUSCULOSKELETAL: Normal joints with no swelling. Muscle tone is normal. LABS/X-RAYS/INVESTIGATIONS/INTERIM RELEVANT DATA: Chest x-ray no acute process. WBCs 8.05, hemoglobin 9.9, platelets 232, hematocrit 31.1. NA sodium 136.8, chloride 103.7, BUN 19.5, glucose 284.6, potassium 4.75, c02 26.4, creatinine 0.83. D. dimer 539.70, ABG on 2L 99% saturation, pc02 33.2, p02 113, HC03 21.8. CPK, troponin within normal limits times three. EKG sinus tachycardia 'P' Pulmonale pulmonary disease - HR 130 on admission. ASSESSMENT: 1. SINUS TACHYCARDIA RELATED TO SEVERE COPD/BRONCHITIS. 2. HISTORY OF SMOKING/SEVERE COPD. 3. HYPERLIPIDEMIA/DYSLIPIDEMIA. 4. CARDIOVASCULAR STATUS STABLE, NO CHF. RECOMMENDATIONS: 1. Echocardiogram. 2. D/C Zestril for now. 3. Theophylline level. 4. Counseling for smoking done. 5. Echo - enlarged RV cavity, normal LV cavity, normal LV size, normal valves. 6. Agreed with management of COPD/bronchitis. Restart Zestril 2.5 mg p.o. daily. Thanks for the referral. DOROTHEAD
--- NOTE | 2019-01-12 11:43 | ECHO2D ---
Date of Exam: 01/09/19 Ordering Physician: DR. BRUNO MOSLEY--HOSPITALIST Room #: 117 Reason for Echo: SOA, TACHYCARDIA, COPD M-Mode Normal Adult Results LV Dimensions Normal Adult Results AoV Opening excursions >1.6 >1.6 LVEDD-base- 3.5-5.8 4.2 Ao root dimensions 2.0-3.7 3.0 LVESD-base- 3.1-4.6 L. Atrium dimensions 1.9-3.8 3.6 Post. Wall thickness 0.8-1.1 0.9 IV septum (thickness) 0.7-1.2 0.9 Post. Wall excursion 0.72-1.3 NORMAL Septal motion NORMAL Systolic motion R. Ventricular cavity 1.5-2.0 3.0 LVEF 60% 57% Paradoxical septal wall motion NORMAL 2-D : 2-D M Mode Echocardiogram was performed using apical four chamber and left parasternal long and short axis views. Mitral, tricuspid and aortic valves appear to be normal. Contractility of the left ventricle seems to be normal, so is the cavity size. Left atrial cavity size and aortic root appear to be normal. There is no pericardial effusion. There is no thrombus noted in the left ventricle or left atrial cavity. No mitral valve prolapse noted. M-MODE: MV: NORMAL AV: NORMAL TV: NORMAL PV: CHAMBER SIZE: ENLARGED RIGHT VENTRICLE CAVITY WALL MOTION: NORMAL PERICARDIUM: NORMAL INTERPRETATION: 1. ENLARGED RIGHT VENTRICLE CAVITY 2. NORMAL VALVES 3. NORMAL LEFT VENTRICULAR CONTRACTILITY MOSTLY SUBCOSTAL APPROACH WAS USED BECAUSE OF COPD MTDD
[2019-01-12 14:03] VITALS: BP 134/70; TEMP 97.6
[2019-01-12] MEDS: NORCO 5-325 PO PRN (14:35)
--- NOTE | 2019-01-12 14:55 | HP ---
DATE OF SERVICE: 01/07/19 CHIEF COMPLAINT: Shortness of breath. BRIEF HISTORY OF PRESENT ILLNESS/HOSPITAL COURSE: Ms. Cope is a pleasant 53-year-old patient of Magda Haynes, who presented through the Emergency Department with complaints of shortness of breath. She reports that the symptoms started on the day of admission. She reports severity is mild and she was telling the Emergency Department that the cough was nonproductive. She described the associated signs and symptoms with shortness of breath along with the nonproductive cough. She does have a history of smoking. She does not use home oxygen. She does have a history of COPD as well as asthma. Her last admission for COPD was in October of [address] Castillo and her discharge diagnosis was COPD exacerbation. Ms. Cope also has chronic back pain. She has had several back surgeries for her back. Decision was made to admit the patient to the hospital because of worsening respiratory status and to get her on some steroids, antibiotics and breathing treatments. PAST MEDICAL HISTORY: Diabetes mellitus Chronic arthritis Hyperlipidemia COPD Hypertension Asthma PAST SURGICAL HISTORY: Back surgery ENT surgery Tubal ligation Tonsillectomy Hysterectomy Cholecystectomy section Tonsillectomy Adenoidectomy FAMILY HISTORY: Mother with diabetes, skin cancer, CVA and hypertension. Father with cardiac disease. SOCIAL HISTORY: She is a current every day smoker for the past 20 years. She does report that she is not considering quitting smoking. She denies alcohol use. She denies any substance abuse. She is . She is disabled. MEDICATIONS: (CURRENT HOME) Albuterol Ventolin HFA as directed Amitriptyline 50 mg at bedtime Atorvastatin 20 mg daily Hydrocodone/Acetaminophen 5/325 three times a day as needed Incruse Ellipta 62.5 mcg daily Ipratropium - Albuterol 0.5 mg one vial neb every six hours as needed Zestril 2.5 mg daily Metformin (Fortamet) 500 mg twice a day Seroquel 400 mg at bedtime Requip 3 mg at bedtime Theophylline which is Simone-Dur 400 mg daily ALLERGIES: IBUPROFEN, ASPIRIN, BLUE DYE, IODINATED CONTRAST MEDIA, TORADOL, LEVAQUIN, NSAIDS, DAYPRO, BACTRIM REVIEW OF SYSTEMS: CONSTITUTIONAL: No reports of fever, chills, nightsweats or weight changes. HEENT: She did complain of some nasal congestion. Denies ear pain. Denies blurred vision. No sore throat. CARDIOVASCULAR: No reports of chest pain or irregular rhythm. No orthopnea or peripheral edema. RESPIRATORY: She did complain of significant shortness of breath, cough and congestion. No lung disease. GASTROINTESTINAL: No reports of abdominal pain, nausea, vomiting, diarrhea or constipation. No blood in the stool or change in stool consistency. GENITOURINARY: No reports of any dysuria, hematuria, nocturia or urinary incontinence. MUSCULOSKELETAL: No reports of any unusual muscle pain, joint redness, swelling or any history of problems. She does report some chronic back pain. She does feel like that the bed here in the hospital is aggravating her back pain. She does have some chronic deformity of her right ankle and right foot drop that is chronic. NEUROLOGIC: No reports of dizziness, any fatigue or neurological deficits. ENDOCRINE: No reports of thyroid disease. She does have a history of diabetes mellitus. INTEGUMENT: No reports of any rashes, lesions or skin changes. PSYCHIATRIC: No complaints of anxiety, depression or mood changes. PHYSICAL EXAMINATION: GENERAL: She is alert and oriented. VITAL SIGNS: On admission, temperature 98.6, pulse rate 102, blood pressure is 124/75, respiratory rate 20, 02 sat 100% on 2L/NC. Height 5'9". Weight recorded at 119 lbs. Telemetry - she is sinus tach with PVCs. HEENT: Head normocephalic, atraumatic. Pupils equal/reactive to light. Conjunctivae clear. NECK: Supple. No lymphadenopathy or thyromegaly. No carotid bruits auscultated. CARDIOVASCULAR: S1, S2 regular rate and rhythm. No peripheral edema. She has peripheral pulses palpable to anterior. No posterior pulses palpable. LUNGS: Diminished with wheezing bilaterally. ABDOMEN: Soft. Bowel sounds are positive. No tenderness or rebound tenderness. NEUROLOGIC: Cranial nerves 2-12 grossly intact. She does have foot drop to the right foot that is chronic. . SKIN: Warm and dry without any overt rashes or lesions. LABS AND DIAGNOSTIC TESTING: Reviewed. Chest x-ray shows no acute process. On admission, white count was normal. Hemoglobin and hematocrit stable at 11.5 and 34.6. Platelet count was normal. Blood gases pH 7.425, p02 113, HC03 21.8, c02 23, base excess is 3 on 2L/NC. Chem panel was stable with exception of an alkaline phosphatase of 155.4 which is elevated. ASSESSMENT: 1. COPD exacerbation. 2. History of asthma. 3. Hypertension. 4. Hyperlipidemia. 5. Diabetes mellitus type 2. 6. Chronic arthritis with chronic back pain with history of previous back surgery. 7. Chronic arthritis. PLAN: 1. Admit the patient. 2. The patient has been placed on steroids as well as IV antibiotics and Duonebs. 3. She has been counseled on smoking cessation and has been given a nicotine patch. 4. Telemetry monitoring is in place. 5. Further orders and recommendations per Dr. Mcqueen. TIME SPENT: GREATER THAN 65 MINUTES MTDD
--- NOTE | 2019-01-12 16:03 | DI ---
EXAM: Chest two views HISTORY: Shortness of breath FINDINGS: Compared to 01/07/2019. Heart size remains within normal limits. Lungs are mildly hyperi nflated. No acute infiltrates are seen. No vascular congestion. There is no consolidation, visible pleural fluid or pneumothorax. Bones reveal no acute fracture. IMPRESSION: Hyperinflation. No acute cardiopulmonary process.
--- NOTE | 2019-01-13 10:32 | CONS ---
DATE OF SERVICE: 01/12/19 CONSULT FOLLOWUP SUBJECTIVE: The patient was seen and examined today. The patient's condition has improved. She is laying in the bed and no wheezing heard. REVIEW OF SYSTEMS: CONSTITUTIONAL: No night sweats. No fatigue, malaise, lethargy. No fever or chills. HEENT: Eyes: No visual changes. No eye pain. No eye discharge. ENT: No runny nose. No epistaxis. No sinus pain. No sore throat. No odynophagia. No ear pain. No congestion. RESPIRATORY: No cough, no congestion. No hemoptysis. No audible wheezing. CARDIOVASCULAR: No angina symptoms. No CHF symptoms. No atypical chest pain for CAD. No palpitations. No shortness of breath. GASTROINTESTINAL: No abdominal pain. No nausea or vomiting. No diarrhea or constipation. No hematemesis. No hematochezia. GENITOURINARY: No urgency. No frequency. No dysuria. No hematuria. No obstructive symptoms. No discharge. No pain. No significant abnormal bleeding. MUSCULOSKELETAL: No musculoskeletal pain. No joint swelling. No arthritis. NEUROLOGICAL: No headache. No neck pain. No syncope. No seizures. No dizziness. PSYCHIATRIC: Not anxious. No depression. No suicidal thoughts. No homicidal thoughts. SKIN: No rash. No lesions. No wounds. ENDOCRINE: No unexplained weight loss. No weight gain. HEMATOLOGIC/LYMPHATIC: No anemia. No purpura. No petechiae. No prolonged or excessive bleeding. No palpable lymph nodes. PHYSICAL EXAMINATION: HEENT: Head normocephalic, atraumatic. Eyes: Extraocular muscles are intact. Pupils are equal, round and reactive to light and accommodation. Ears: No lesions. Nose appeared normal. Throat: No exudate or erythema. NECK: Supple. No JVD, no carotid bruit. No lymphadenopathy or thyromegaly. LUNGS:Decreased breath sounds with mild wheeze. Percussion note normal. Chest symmetrical. HEART: S1, S2, no S3. No murmurs. No cyanosis or clubbing. No ascites. Pulses: Dorsalis pedis and posterior tibial pulses +1 to +2 bilaterally. ABDOMEN: Soft. Nontender. Bowel sounds active. No CVA tenderness. No mass felt. EXTREMITIES: No edema. Full range of motion of all extremities, equal. NEUROLOGIC: No focal deficit. Cranial nerves II through XII are grossly intact. No headache, no double vision or headache. SKIN: Not dry. Intact. Turgor - normal. LYMPHATIC: No palpable lymph nodes/no lymphedema. MUSCULOSKELETAL: Normal joints with no swelling. Muscle tone is normal. LABS: Telemetry strips examined. The patient's rate is 95 per minute. Blood pressure seems to be under control. ASSESSMENT: 1. Sinus tachycardia which was from chronic lung disease with bronchitis seems to be under control RECOMMENDATIONS: 1. Strongly advised the patient to quit smoking. 2. The rest of the risk factors that the patient has for coronary artery disease discussed with the patient and how to modify them. PROGNOSIS: Poor unless the patient changes her lifestyle. Strongly advised to followup with primary care. I will sign off of the patient's consult. CLEMENTINA
--- NOTE | 2019-01-13 10:33 | CONS ---
This patient was totally seen 5 times. Initial Level 5 first time consultation The rest of consultation intermediate MTDD
--- NOTE | 2019-01-13 13:02 | CONS ---
DATE OF SERVICE: 01/11/19 CONSULT FOLLOWUP SUBJECTIVE: 53 year old white female hospitalized with COPD acute exacerbation. Her condition is stable and she is feeling better. No distress. No audible wheezing. REVIEW OF SYSTEMS: CONSTITUTIONAL: No night sweats. No fatigue, malaise, lethargy. No fever or chills. HEENT: Eyes: No visual changes. No eye pain. No eye discharge. ENT: No runny nose. No epistaxis. No sinus pain. No sore throat. No odynophagia. No ear pain. No congestion. RESPIRATORY: Mild cough, no congestion. No hemoptysis. CARDIOVASCULAR: No angina symptoms. No CHF symptoms. No atypical chest pain for CAD. No palpitations. Shortness of breath on exertion as usual. GASTROINTESTINAL: No abdominal pain. No nausea or vomiting. No diarrhea or constipation. No hematemesis. No hematochezia. GENITOURINARY: No urgency. No frequency. No dysuria. No hematuria. No obstructive symptoms. No discharge. No pain. No significant abnormal bleeding. MUSCULOSKELETAL: No musculoskeletal pain. No joint swelling. No arthritis. NEUROLOGICAL: No headache. No neck pain. No syncope. No seizures. No dizziness. PSYCHIATRIC: Not anxious. No depression. No suicidal thoughts. No homicidal thoughts. SKIN: No rash. No lesions. No wounds. ENDOCRINE: No unexplained weight loss. No weight gain. HEMATOLOGIC/LYMPHATIC: No anemia. No purpura. No petechiae. No prolonged or excessive bleeding. No palpable lymph nodes. PHYSICAL EXAMINATION: VITAL SIGNS: Temperature 97.6, pulse 95, respiratory rate 20, blood pressure 125/72 and pulse ox 99%. HEENT: Head normocephalic, atraumatic. Eyes: Extraocular muscles are intact. Pupils are equal, round and reactive to light and accommodation. Ears: No lesions. Nose appeared normal. Throat: No exudate or erythema. NECK: Supple. No JVD, no carotid bruit. No lymphadenopathy or thyromegaly. LUNGS: Decreased breath sounds but clear to auscultation. Percussion note normal. Chest symmetrical. HEART: S1, S2, no S3. No murmurs. No cyanosis or clubbing. No ascites. Pulses: Dorsalis pedis and posterior tibial pulses +1 to +2 bilaterally. ABDOMEN: Soft. Nontender. Bowel sounds active. No CVA tenderness. No mass felt. EXTREMITIES: No edema. Full range of motion of all extremities, equal. NEUROLOGIC: No focal deficit. Cranial nerves II through XII are grossly intact. No headache, no double vision or headache. SKIN: Not dry. Intact. Turgor - normal. LYMPHATIC: No palpable lymph nodes/no lymphedema. MUSCULOSKELETAL: Normal joints with no swelling. Muscle tone is normal. LABS: Hgb 8.8, hct 28, WBC 8,500 normal differential, creatinine 0.5, BUN 18, potassium 3.8. ASSESSMENT: 1. Sinus tachycardia seems to be resolving with improvement in respiratory status Other diagnosis and problems to be managed by primary care like: Acute bronchitis COPD Chronic anemia Diabetes mellitus History of hypertension RECOMMENDATIONS: 1. Continue the same treatment 2. Strongly advised to quit smoking. 3. Pulmonary rehab recommended. 4. The patient is underweight with BMI of 17, Likely cause could be heavy smoking. 5. The patient is noncompliant advised to followup with primary care. CONDITION: Stabilizing. PROGNOSIS: Guarded. MTDD
--- NOTE | 2019-01-13 13:41 | CONS ---
DATE OF SERVICE: 01/10/19 CONSULT FOLLOWUP SUBJECTIVE: 53-year-old white female who has been treated for acute exacerbation of COPD was consulted for sinus tachycardia. The patient is resting, feeling better, particularly no wheezing heard. PHYSICAL EXAMINATION: VITAL SIGNS: Temperature 98.5, pulse 98/min, respiratory rate 16, BP 124/78, pulse ox 98% on 2L. HEENT: Head normocephalic, atraumatic. Eyes: Extraocular muscles are intact. Pupils are equal, round and reactive to light and accommodation. Ears: No lesions. Nose appeared normal. Throat: No exudate or erythema. NECK: Supple. No JVD, no carotid bruit. No lymphadenopathy or thyromegaly. LUNGS: Decreased breath sounds with mild wheeze. Percussion note normal. Chest symmetrical. HEART: S1, S2, no S3. No murmurs. No cyanosis or clubbing. No ascites. Pulses: Dorsalis pedis and posterior tibial pulses +1 to +2 bilaterally. ABDOMEN: Soft. Nontender. Bowel sounds active. No CVA tenderness. No mass felt. EXTREMITIES: No edema. Full range of motion of all extremities, equal. NEUROLOGIC: No focal deficit. Cranial nerves II through XII are grossly intact. No headache, no double vision or headache. SKIN: Not dry. Intact. Turgor - normal. LYMPHATIC: No palpable lymph nodes/no lymphedema. MUSCULOSKELETAL: Normal joints with no swelling. Muscle tone is normal. Hemoglobin 9.9, hematocrit 31, WBC 8,000, normal differential. Creatinine 0.8, BUN 19, potassium 4.7, c02 26, glucose 284. ASSESSMENT: 1. Sinus tachycardia, borderline now. 2. The patient's respiratory status seems to be improved. PLAN: 1. Agree with continuation of Lisinopril 2.5 mg. 2. Atorvastatin 20 mg. 3. Nebs treatment p.r.n. Albuterol and steroids. MTDD
--- NOTE | 2019-01-13 14:32 | CONS ---
DATE OF SERVICE: 01/09/19 CONSULT FOLLOWUP SUBJECTIVE: 53 year old female hospitalized with acute exacerbation of COPD. The patient is heavy smoker. She is under weight. She is wheezing some. REVIEW OF SYSTEMS: CONSTITUTIONAL: No night sweats. No fatigue, malaise, lethargy. No fever or chills. HEENT: Eyes: No visual changes. No eye pain. No eye discharge. ENT: No runny nose. No epistaxis. No sinus pain. No sore throat. No odynophagia. No ear pain. No congestion. RESPIRATORY: No cough, no congestion. No hemoptysis. CARDIOVASCULAR: No angina symptoms. No CHF symptoms. No atypical chest pain for CAD. No palpitations. No shortness of breath. GASTROINTESTINAL: No abdominal pain. No nausea or vomiting. No diarrhea or constipation. No hematemesis. No hematochezia. GENITOURINARY: No urgency. No frequency. No dysuria. No hematuria. No obstructive symptoms. No discharge. No pain. No significant abnormal bleeding. MUSCULOSKELETAL: No musculoskeletal pain. No joint swelling. No arthritis. NEUROLOGICAL: No headache. No neck pain. No syncope. No seizures. No dizziness. PSYCHIATRIC: Not anxious. No depression. No suicidal thoughts. No homicidal thoughts. SKIN: No rash. No lesions. No wounds. ENDOCRINE: No unexplained weight loss. No weight gain. HEMATOLOGIC/LYMPHATIC: No anemia. No purpura. No petechiae. No prolonged or excessive bleeding. No palpable lymph nodes. PHYSICAL EXAMINATION: GENERAL: The patient is not in any distress. VITAL SIGNS: Oxygen saturation is 94% on 2 liters. Temperature 97.1, pulse 100, respiratory rate 22, blood pressure 80/40 and pulse ox 99%. HEENT: Head normocephalic, atraumatic. Eyes: Extraocular muscles are intact. Pupils are equal, round and reactive to light and accommodation. Ears: No lesions. Nose appeared normal. Throat: No exudate or erythema. NECK: Supple. No JVD, no carotid bruit. No lymphadenopathy or thyromegaly. LUNGS: Mild expiratory wheeze. Clear to auscultation. Percussion note normal. Chest symmetrical. HEART: S1, S2, no S3. No murmurs. No cyanosis or clubbing. No ascites. Pulses: Dorsalis pedis and posterior tibial pulses +1 to +2 bilaterally. ABDOMEN: Soft. Nontender. Bowel sounds active. No CVA tenderness. No mass felt. EXTREMITIES: No edema. Full range of motion of all extremities, equal. NEUROLOGIC: No focal deficit. Cranial nerves II through XII are grossly intact. No headache, no double vision or headache. SKIN: Not dry. Intact. Turgor - normal. LYMPHATIC: No palpable lymph nodes/no lymphedema. MUSCULOSKELETAL: Normal joints with no swelling. Muscle tone is normal. ASSESSMENT: 1. Acute bronchitis with severe chronic lung disease with history of smoking 2. Diabetes mellitus 3. Dyslipidemia 4. Hypertension RECOMMENDATIONS: 1. Considering the patient's multiple risk factors we will restart her on Zestril 2.5mg for kidney protect. She is unable to tolerate Diltiazem because of hypotension. 2. Pulse rate is going to be high because of severe chronic lung disease. The patient is to be restarted on DUO NEBS night before with Albuterol in between PRN. Solu-Cortef and Steroids as ordered attending. The patient's cardiovascular status is stable. 3. Echo showed normal LV contractility with enlarged RV cavity, it was done yesterday. CONDITION: Stable MTDD
--- NOTE | 2019-01-16 14:51 | DS ---
DATE OF SERVICE: 01/12/19 FINAL DIAGNOSES: 1. COPD EXACERBATION 2. HYPERTENSION 3. TACHYCARDIA WITH NEW START OF CARDIZEM. HEART RATE CONSISTENTLY IN THE 90s AND LOW 100s THIS HOSPITALIZATION 4. HYPERLIPIDEMIA 5. DIABETES MELLITUS TYPE 2 6. CHRONIC ARTHRITIS BRIEF HISTORY OF PRESENT ILLNESS/HOSPITAL COURSE: Ms. Cope is a pleasant 53-year-old patient of Magda Haynes who presented through the Emergency Department with respiratory symptoms of shortness of breath and cough. She has known COPD. She was admitted for COPD and shortness of breath. Chest x-ray and labs were initiated on admission including ABGs. White count was normal. Blood gases on admission revealed an 02 sat of 99%, pc02 of 33.2, pH 7.425, p02 of 113 and HC03 of 21.8 and total c02 of 23. CMP stable on admission. Chest x-ray on admission showed no acute cardiopulmonary process. She did have a repeat chest x-ray on 01/12/19 that showed hyperinflation with nothing acute. She continues to have some wheezing but this is has improved. Vital signs at discharge 129/81, pulse rate 90, respiratory rate 18, heart rate 98, 02 sat 98% on 2L/NC. Hemoglobin 9.1, hematocrit 28.8 and platelet count 217. 02 sat 99% on 2L/NC. She does wear oxygen chronically 24 hours a day. She was started on Ativan during this hospitalization to help with anxiety. She does report that this has helped to calm her nerves and help with her breathing. She will be sent home with prescription of short-term prescription for Ativan 0.5 mg #30, take one p.o. twice a day as needed for anxiety. Further refills will be per her primary care provider's discretion. She will also be sent home for prescription for Prednisone 5 mg twice a day for 5 days and then daily for 5 days for a Prednisone taper and then a prescription again was sent in for a two- week prescription for Cardizem 30 mg every 8 hours. The rest of her home medications will be continued. She has been advised on no further smoking. She does have a history of asthma and her lung disease and smoking is contraindicated and she understands the risk of smoking on her health. She has been encouraged to make an appointment MILLER with Ana Haynes within the next week. She verbalized understanding. DISCHARGE DIET: Regular diet as tolerated. DISCHARGE ACTIVITY: Strongly encouraged to increase activity level. DISCHARGE INSTRUCTIONS: Followup appointment: She is encouraged to make an appointment within one week with Magda Haynes and further orders and recommendations per Magda Haynes APRN. TIME SPENT: GREATER THAN 30 MINUTES MTDD
--- NOTE | 2019-01-23 09:40 | PN ---
DATE OF SERVICE: 01/08/19 SUBJECTIVE: I did see her this early afternoon about 1:30 with Blossom. The patient had some tachypnea and has wheezing both anterior and posterior chest. Slightly tachycardiac with a rate 109. I changed the Solu-Medrol to Solu-Cortef 250mg every 6 hours for 4 doses and then another 4 doses at 125mg and there after 125mg Q 12 hours. I was notified about 7:30 this evening that this patient's rate has raised about 130-140 and did advise the nurse to refer the patient to Dr. Shrestha because of the tachycardia. I did come to see about 8:45pm and the patient was alert, slightly tachypneic and claims to be feeling better. The patient was given Cardizem 60mg and her heart rate is down to 115. She will be receiving Cardizem 30mg every 8 hours. The DUO NEB also was discontinued. The lungs still has inspiratory and expiratory wheezing both posteriorly and anteriorly. She does not have any cyanosis. Told the patient that it is getting a little bit harder to control her problems. This patient also has asthma as well as a chronic tobacco use. She used to smoke three packs of cigarettes a day and now down to 1/2 pack a day. I had mentioned to this patient that she needs to stop her smoking promptly. I told her that her heart rate would probably increase with her inhaler until she comes out of the hospital. Nebulizer use is essentially the same as the puffer. MTDD
--- NOTE | 2019-01-23 09:48 | PN ---
DATE OF SERVICE: 01/09/19 SUBJECTIVE: I did see her twice. I saw her earlier. The patient this evening about 6:00 is alert with treatment ongoing, nebulizer. The patient's medication Solu-Cortef had been increased to 250mg times four doses and then 125mg times four doses and then 125mg Q 12 hours. The patient still has wheezing both anteriorly and posteriorly mostly expiratory. HEART: Audible and slightly tachycardiac Dr. Shrestha, the business performance specialist is on board because of the tachycardia. Blood pressure was acceptable 145/70, heart rate 118, respiratory rate 23 and temperature 98.7, oxygen saturation 99 with 2 liters of oxygen. The patient may be given Cortizone Nebulizer if things do not improve by tomorrow. The echocardiogram according to Dr. Shrestha has some abnormalities but not significant or a compromise to her life at this time. Her medications were reviewed. The patient is not on prophylactic anticoagulant and will be given today. Lovenox 30mg SUBCUT daily. MTDD
--- NOTE | 2019-01-23 10:03 | PN ---
DATE OF SERVICE: 01/10/19 SUBJECTIVE: The patient was seen about 3:30 in the afternoon and she was better and she claims to be better when I ask her how she is. She is no longer tachypneic and not dyspneic and no cyanosis. She is still on 2 liters of oxygen. Heart rate has decreased below 100. The Cardizem was increased to every 8 hours from every 12. It was decreased to every 12 hours after she had some hypotension initially after the 60mg of Cardizem PO. The patient's vital signs today at 1:56pm showed a blood pressure 123/71, pulse 107, respiratory rate 20, temperature 98.6, oxygen saturation 100 at 2 liters. This patient still has expiratory wheezing both anteriorly and posteriorly. No rales. Heart is audible, regular and slightly tachycardic. She denies any chest pain or abdominal pain. She consumes about 90% of her meals. I did advise her yesterday that her echocardiogram was not significantly abnormal according to Dr. Shrestha who did the testing. This is a verbal results. This patient has a moderately severe anemia. Maybe iron deficiency. Fast sugar yesterday was 284 but the IV since then had been changed to 0.5 saline plus 20KCL plus MVI ran at 12 hours per 1000. Her A1c yesterday was 6.67. The Alkaline phosphatase was elevated but has returned to normal yesterday 105.0. Renal panel is normal. This patient will be placed on a scheduled Lorazepam 0.5mg every 6 hours. She was given 1mg last night and repeated after 5 hours. That seemed to settle her down. This patient seemed to be apprehensive when she is getting short of breath of the sensation of shortness of breath. CONDITION: Stable, somewhat improved. This patient was advised again to strongly consider stopping smoking. I advised for her to stop smoking now and never to resume it. MTDD
--- NOTE | 2019-01-23 10:44 | PN ---
DATE OF SERVICE: 01/11/19 SUBJECTIVE: The patient is alert not dyspneic or tachypneic with no cyanosis. She is still on 2 liters of nasal oxygen. She told me that she felt better today when I asked her how she is. VITALS: Blood pressure 145/79, pulse 101, respiratory 22 and temperature 98.3 with oxygen saturation 95 with 2liters of nasal oxygen. HEART: Normal sinus rhythm. Slightly tachycardiac. LUNGS: Breath sounds are diminished with less expiratory wheezing both anteriorly and posteriorly. ABDOMEN: Nontender LOWER EXTREMITIES: No tenderness in the calf muscles CONDITION: Stable and improved. This patient again is admonished never start smoking. It is taking a good number of days to control the exacerbation of the asthma as well as the bronchitis. She will be started on Pulmicort Nebulizer 0.5mg per 2 cc starting tonight and BID. MTDD
== END 2019-01-12 16:30 | disposition home or self-care (01) ==
LOC: ED 15:41 → INTOOBSV 19:33 → MEDSURG B 19:33
PROVIDERS: ADMIT General Practice; ATTEND General Practice
DX: R05 Cough; I10 Essential (primary) hypertension; R00.0 Tachycardia, unspecified; E11.9 Type 2 diabetes mellitus without complications; M19.90 Unspecified osteoarthritis, unspecified site; E78.5 Hyperlipidemia, unspecified; J44.1 Chronic obstructive pulmonary disease with (acute) exacerbation; R06.02 Shortness of breath; R06.2 Wheezing

== ENCOUNTER 2020-03-17 21:55 | Observation (INO) ==
[2020-03-17] MEDS ORDERED: SOLU-MEDROL 125 MG IVP STA (22:18)
[2020-03-17] MEDS ORDERED: PROAIR HFA (SINGLE PATIENT USE) IH STA (22:24)
[2020-03-17] MEDS ORDERED: ATROVENT HFA INHALER (SINGLE PATIENT USE) IH STA (22:24)
--- NOTE | 2020-03-17 22:25 | ED.PDOC ---
General ED Provider: Dr. TOMA OVALLES Stated Complaint: comes to the ER By EMS with complaints of cough and shortness of breath for the past 3 days. States similar to prior COPD exacerbations. Continues to smoke 1/2 ppd. Denies any covid exposure and also denies any fever. Time Seen by Physician: 22:23 Mode of Arrival: Ambulance Information Source: Patient Primary Care Provider: TYRELL ANGEL Nursing and Triage Documentation Reviewed and Agree: Yes Does patient meet sepsis criteria?: Yes If yes, has appropriate treatment been initiated?: No System Inflammatory Response Syndrome: Pulse >90 BPM and Resp >20/Minute Sepsis Protocol: For patient's 13 years and over: Temp is 96.8 and below OR 101 and greater Pulse >90 BPM Resp >20/minute Acutely Altered Mental Status Are patient's symptoms suggestive of a new infection, such as: -Pneumonia -Skin, Soft Tissue -Endocarditis -UTI -Bone, Joint Infection -Implantable Device -Acute Abdominal Infection -Wound Infection -Meningitis -Blood Stream Catheter Infection -Unknown Respiratory Complaint Exam Respiratory Complaint/Exam Onset/Duration: 3 days Symptoms Are: Still present Timing: Constant Initial Severity: Moderate Current Severity: Moderate Location: Chest Character: Reports Non-productive cough Aggravating: Reports Passive smoke exposure (and active smoking ) Alleviating: Reports None Associated Signs and Symptoms: Reports Rapid breathing, Dyspnea, Wheezing and URI; Denies Fever, Chills, Chest pain and Pleuritic chest pain Cardiac Risk Factors: Reports Smoking Tuberculosis Risk Factors: Reports Smoking Status Asthmaticus Risk Factors: Reports Smoke exposure Home Oxygen Use: Yes Recent Stress Test: No Recent Echo/LV Function: No Current Antibiotic Use: No Current Asthma Medication Use: Yes Respiratory Distress: Moderate Inadequate Respiratory Effort: No Dysphagia Present: No Stridor Present: No JVD Present: No Accessory Muscle Use: No Diminished Breath Sounds: No Sinus Tenderness: None Grunting Respirations: No Kussmaul Respirations: No Differential Diagnoses: Asthma, COPD Exacerbation, URI and Influenza Non-Traumatic Chest Pain Syncope: EKG Performed Review of Systems Review Of Systems Constitutional: Reports No symptoms Eyes: Reports No symptoms Ears, Nose, Mouth, Throat: Reports No symptoms Respiratory: Reports Cough, Short of air and Wheezing Cardiac: Denies Chest pain GI: Reports No symptoms : Reports No symptoms Musculoskeletal: Reports No symptoms Skin: Reports No symptoms Neurological: Reports Anxiety Endocrine: Reports No symptoms Hematologic/Lymphatic: Reports No symptoms All Other Systems: Reviewed and Negative [facility] Medical History (Updated 03/18/20 @ 00:10 by TOMA OVALLES MD) Asthma Chronic arthritis Chronic obstructive pulmonary disease Diabetes mellitus Hyperlipidemia Hypertension Family History Mother Diabetes Cerebrovascular accident Hypertension FATHER Cardiac disease Other Skin cancer Social History Smoking and tobacco status: Current every day smoker Tobacco type: cigarettes Smoking cigarettes per day: 10 Years smoked: 20 Smoking pack-years: 10.00 Tobacco: How many years used: 20 Passive smoking exposure: No Quit status: not considering quitting Alcohol intake: never Substance use type: does not use Household members: children Housing: house Marital status: D Lives independently: Yes Daycare: no daycare Number of children: 3 (1 ) penitentiary: No Current occupational status: disabled History of recent travel: No Do you think of yourself as: straight/heterosexual Current gender identity: female Seatbelt use: always 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 Current diet type/program: regular Caffeine: Yes Eating out: rarely or never Reads food labels: seldom or never During the past year weight has: remained stable Surgical History (Updated 10/19/19 @ 08:45 by [email or web address] [place]) History of section History of ear, nose, and throat (ENT) surgery History of musculoskeletal system surgery History of tubal ligation Status post cholecystectomy Status post hysterectomy Status post tonsillectomy Status post tonsillectomy and adenoidectomy Female Reproductive History Menstrual Hx Hysterectomy: Yes Hx Tubal Ligation: Yes Physical Exam Physical Exam Appearance: Reports Ill-appearing and Thin Ill-appearing: Moderate Pain Distress: None Eyes: Reports TROY and EOMI ENT: Reports Nose normal and Oropharynx normal Neck: Supple Respiratory: Reports Breath sounds diminished and Wheezes Cardiovascular: Reports RRR and Tachycardia Musculoskeletal: Reports Normal strength and ROM intact Skin: Reports Warm and Dry Neurological: Reports Motor intact, Alert and Oriented Psychiatric: Reports Anxious Interpretation Radiology Interpretation Radiology Interpretation By: Radiologist Radiology Results: No acute changes Exam Interpreted: Portable CXR EKG Interpretation Time of EKG #1: 23:14 Rate: Tachy Rhythm: Sinus Ectopy: PVCs (fusion complexes ) [place]: NL ST Segment: Normal Interpretation: sinus tachycardia with fusion complexes. Re-Evaluation Re-Evaluation Time of Re-Evaluation: 23:40 Status: Improved (only slightly ) Vital Signs Stable: Yes Lungs: Other (still wheezing) Skin: Warm and Dry Neuro: Alert and Oriented X3 Critical Care Note Critical Care Note Total Critical Care Time (mins): 40 Course Course Hematology/Chemistry: 03/17/20 22:44 03/17/20 22:44 Orders, Labs, Meds: Lab Review 03/17/20 03/17/20 03/17/20 22:18 22:34 22:44 WBC 8.16 RBC 4.55 Hgb 12.8 Hct 38.1 MCV 83.7 MCH 28.1 MCHC 33.6 RDW Coeff of Paulina 13.7 Plt Count 245 Immature Gran % (Auto) 0.4 Neut % (Auto) 66.6 Lymph % (Auto) 26.7 [place] % (Auto) 5.6 Eos % (Auto) 0.0 Baso % (Auto) 0.7 Neut # (Auto) 5.4 Lymph # (Auto) 2.2 [place] # (Auto) 0.5 Eos # (Auto) 0.0 Baso # (Auto) 0.1 Immature Gran # (Auto) 0.0 Puncture Site [employer] Base Excess 1.7 O2 Saturation 64.4 L ABG pH 7.36 ABG pCO2 48.0 H ABG pO2 35.0 L* ABG HCO3 27.1 ABG Total CO2 28.6 H Quentin Test + Hemoglobin 1.1 Oxyhemoglobin 64.9 L Carboxyhemoglobin 4.6 H Total Hemoglobin 12.6 O2 Delivery Device Bnc Oxygen Liter Flow 2.00 FiO2 % 28.0 Sodium Potassium Chloride Carbon Dioxide Anion Gap BUN Creatinine Estimated GFR (MDRD) BUN/Creatinine Ratio Glucose Lactic Acid Calcium Total Bilirubin AST ALT Alkaline Phosphatase Total Creatine Kinase Troponin I Total Protein Albumin Globulin Albumin/Globulin Ratio Procalcitonin SARS-CoV-2 Ag (Rapid) Negative 03/17/20 03/17/20 03/17/20 22:44 22:44 22:44 WBC RBC Hgb Hct MCV MCH MCHC RDW Coeff of Paulina Plt Count Immature Gran % (Auto) Neut % (Auto) Lymph % (Auto) [place] % (Auto) Eos % (Auto) Baso % (Auto) Neut # (Auto) Lymph # (Auto) [place] # (Auto) Eos # (Auto) Baso # (Auto) Immature Gran # (Auto) Puncture Site Base Excess O2 Saturation ABG pH ABG pCO2 ABG pO2 ABG HCO3 ABG Total CO2 Quentin Test Hemoglobin Oxyhemoglobin Carboxyhemoglobin Total Hemoglobin O2 Delivery Device Oxygen Liter Flow FiO2 % Sodium 138.9 Potassium 4.29 Chloride 103.8 Carbon Dioxide 24.9 Anion Gap 14.49 BUN 14.1 Creatinine 0.74 Estimated GFR (MDRD) 81.00 BUN/Creatinine Ratio 19.05 Glucose 150.5 H Lactic Acid 2.79 H Calcium 9.68 Total Bilirubin 0.33 AST 18.5 ALT 9.4 Alkaline Phosphatase 186.1 H Total Creatine Kinase 65.2 Troponin I < 0.012 Total Protein 7.51 Albumin 4.25 Globulin 3.26 Albumin/Globulin Ratio 1.30 Procalcitonin < 0.05 SARS-CoV-2 Ag (Rapid) Orders Category Date Time Status ABG DRAW REQUEST Stat CARDIO 03/17/20 22:19 Ordered EKG-(ED ONLY) Stat CARDIO 03/17/20 22:18 Ordered OXYGEN Routine CARDIO 03/17/20 22:51 Ordered ACTIVITY .Up ad [place] CARE 03/17/20 22:51 Active BLOOD GLUCOSE MONITORING ACCUCHECK Q6H CARE 03/17/20 23:00 Active GIVE HS SNACK 2100 CARE 03/17/20 22:59 Active INTAKE & OUTPUT Q8HR CARE 03/17/20 22:52 Active VITAL SIGNS Q8HR CARE 03/17/20 22:52 Active ADA 1800 MAYE. DIET DIETARY 03/17/20 Breakfast Ordered HS SNACK DIETARY 03/17/20 Dinner Ordered ED APPLY O2 .ONCE EMERGENCY 03/17/20 22:18 Active ED SHEET METAL WORKER HELPER APPLIED .ONCE EMERGENCY 03/17/20 22:18 Active ED IV/MEDIPORT/POWERPORT .ONCE EMERGENCY 03/17/20 22:18 Active ABG COOX Stat LAB 03/17/20 22:18 Completed BASIC METABOLIC PANEL DAILY@0600 LAB 03/18/20 06:00 Ordered BASIC METABOLIC PANEL DAILY@0600 LAB 03/19/20 06:00 Ordered BLOOD CULTURE (ED ONLY) Stat LAB 03/17/20 22:44 Received CBC W/ AUTO DIFF DAILY@0600 LAB 03/18/20 06:00 Ordered CBC W/ AUTO DIFF DAILY@0600 LAB 03/19/20 06:00 Ordered CBC W/ AUTO DIFF Stat LAB 03/17/20 22:44 Completed COMPREHENSIVE METABOLIC PANEL Stat LAB 03/17/20 22:44 Completed COVID-19 ANTIGEN TEST Stat LAB 03/17/20 22:34 Completed CREATINE KINASE Q8H LAB 03/18/20 05:00 Ordered CREATINE KINASE Q8H LAB 03/18/20 13:00 Ordered CREATINE KINASE Stat LAB 03/17/20 22:44 Completed LACTIC ACID Stat LAB 03/17/20 22:44 Completed PROCALCITONIN Stat LAB 03/17/20 22:44 Completed TROPONIN I Q8H LAB 03/18/20 05:00 Ordered TROPONIN I Q8H LAB 03/18/20 13:00 Ordered TROPONIN I Stat LAB 03/17/20 22:44 Completed 0.9 % Sodium Chloride [Saline Flush] MEDS 03/17/20 22:18 Active 1 syr IVF PRN PRN Acetaminophen [Tylenol] MEDS 03/17/20 22:54 Ordered 650 mg PO Q4H PRN Albuterol Inhaler (Single Pt) [Proair Hfa (Single MEDS 03/17/20 22:24 Discontinued Patient Use)] 2 puff IH ONCE STA Albuterol Inhaler (Single Pt) [Proair Hfa (Single MEDS 03/18/20 09:00 Discontinued Patient Use)] 2 puff IH QID Budesonide/Formoterol Fumarate [Symbicort 80-4.5 Mcg MEDS 03/18/20 09:00 Active Inhaler] 1 puff IH BID Enoxaparin Sodium [Lovenox] MEDS 03/18/20 09:00 Active 40 mg SUBCUT DAILY Ipratropium Inhaler(Single Pt) [Atrovent Hfa Inhaler ( MEDS 03/17/20 22:24 Discontinued Single Patient Use)] 2 puff IH ONCE STA Ipratropium Inhaler(Single Pt) [Atrovent Hfa Inhaler ( MEDS 03/18/20 09:00 Discontinued Single Patient Use)] 2 puff IH QID Methylprednisolone Sod Succ/Pf [Solu-Medrol 125 mg] MEDS 03/17/20 22:18 Discontinued 125 mg IVP ONCE STA Methylprednisolone Sod Succ/Pf [Solu-Medrol 125 mg] MEDS 03/18/20 05:00 Ordered 125 mg IVP Q8HR Ondansetron HCl/Pf [Zofran 4 mg/2 ml] MEDS 03/17/20 22:54 Active 4 mg IVP Q6H PRN Sodium Chloride 0.9% [Sodium Chloride] 1,000 ml MEDS 03/17/20 23:00 Active IV 75 mls/hr RESUSCITATION STATUS Routine OTHERS 03/17/20 22:51 Ordered CHEST, 1V AP ONLY Stat RADS 03/17/20 22:18 Completed Medications Generic Name Dose Route Start Last Admin Trade Name Freq PRN Reason Stop Dose Admin Acetaminophen 650 mg 03/17/20 22:54 Acetaminophen 325 Mg Tablet PO Q4H PRN Fever >101 Hydrocodone Bitart/Acetaminophen 1 tab 03/18/20 00:03 Hydrocodone Bit/Acetaminophen 5/325 Mg Tablet PO TID PRN severe pain Albuterol Sulfate 2 puff 03/18/20 06:00 Albuterol Sulfate 8.5 Gm Inhaler (Single Patient Use) RTQID [facility] Amitriptyline HCl 50 mg 03/18/20 21:00 Amitriptyline Hcl 25 Mg Tablet PO BEDTIME [facility] Atorvastatin Calcium 20 mg 03/18/20 09:00 Atorvastatin Calcium 20 Mg Tablet PO DAILY [facility] Budesonide/Formoterol Fumarate 1 puff 03/18/20 09:00 Budesonide/Formoterol Fumarate 80/4.5 Mcg Hfa.Aer.Ad IH BID ANTOINETTE Cyclobenzaprine HCl 10 mg 03/18/20 00:03 Cyclobenzaprine Hcl 10 Mg Tablet PO BID PRN muscle spasms Diltiazem HCl 30 mg 03/18/20 00:30 Diltiazem Hcl 30 Mg Tablet PO Q12H ANTOINETTE Enoxaparin Sodium 40 mg 03/18/20 09:00 Enoxaparin Sodium 40 Mg/0.4 Ml Syr SUBCUT DAILY ANTOINETTE Sodium Chloride 1,000 mls @ 75 mls/hr 03/17/20 23:00 03/17/20 23:46 Sodium Chloride IV 75 mls/hr .[id number] [facility] Administration Ipratropium [place] 2 puff 03/18/20 06:00 Ipratropium [place] 12.9 Gm Inhaler Single Patient Use RTQID ANTOINETTE Lisinopril 2.5 mg 03/18/20 09:00 Lisinopril 5 Mg Tablet PO DAILY ANTOINETTE Lorazepam 0.5 mg 03/18/20 00:03 Lorazepam 0.5 Mg Tablet PO BID PRN Anxiety Methylprednisolone Sodium Succinate 125 mg 03/18/20 05:00 Methylprednisolone Sod Succ/Pf 125 Mg/2 Ml Vial IVP Q8HR ANTOINETTE Non-Formulary Medication 400 mg 03/18/20 09:00 Theophylline [Simone-24] PO DAILY ANTOINETTE Non-Formulary Medication 500 mg 03/18/20 09:00 Metformin [Fortamet] PO BID ANTOINETTE Non-Formulary Medication 62.5 mcg 03/18/20 09:00 Umeclidinium [Incruse Ellipta] IH DAILY ANTOINETTE Ondansetron HCl 4 mg 03/17/20 22:54 Ondansetron Hcl/Pf 4 Mg/2 Ml Sdv IVP Q6H PRN Nausea / Vomiting Quetiapine Fumarate 400 mg 03/18/20 21:00 Quetiapine Fumarate 100 Mg Tablet PO BEDTIME ANTOINETTE Ropinirole HCl 3 mg 03/18/20 21:00 Ropinirole Hcl 1 Mg Tablet PO BEDTIME ANTOINETTE Sodium Chloride 1 syr 03/17/20 22:18 0.9% Sodium Chloride 10 Ml Disp.Syrin IVF PRN PRN To flush IV Discontinued Medications Generic Name Dose Route Start Last Admin Trade Name Freq PRN Reason Stop Dose Admin Albuterol Sulfate 2 puff 03/17/20 22:24 03/17/20 23:56 Albuterol Sulfate 8.5 Gm Inhaler (Single Patient Use) 03/17/20 22:25 2 puff ONCE STA Administration Albuterol Sulfate 2 puff 03/18/20 09:00 Albuterol Sulfate 8.5 Gm Inhaler (Single Patient Use) QID [facility] Ipratropium [place] 2 puff 03/17/20 22:24 03/17/20 23:56 Ipratropium [place] 12.9 Gm Inhaler Single Patient Use 03/17/20 22:25 2 puff ONCE STA Administration Ipratropium [place] 2 puff 03/18/20 09:00 Ipratropium [place] 12.9 Gm Inhaler Single Patient Use QID [facility] Methylprednisolone Sodium Succinate 125 mg 03/17/20 22:18 03/17/20 22:47 Methylprednisolone Sod Succ/Pf 125 Mg/2 Ml Vial IVP 03/17/20 22:19 125 mg ONCE STA Administration Vital Signs: Temp Pulse Resp BP Pulse Ox 03/17/20 22:01 96.5 F L 126 H 26 H 112/89 98 Discharge Plan Discharge Patient Disposition: ADMITTED INPATIENT Discharge Problem: COPD exacerbation ED Provider: TOMA OVALLES Condition: Fair Physician Progress Note: []
--- NOTE | 2020-03-17 22:47 | DI ---
EXAM: AP single view of the chest. HISTORY: Shortness of breath. FINDINGS: The bones are unremarkable. The cardiac silhouette and pulmonary vasculature are within normal limit s. The costophrenic angles are clear. No infiltrate or consolidation. Impression: No acute cardiopulmonary disease.
[2020-03-17 22:50] LABS: BASOPHILS # (AUTO) 0.1 K/uL (0-0.2); BASOPHILS % (AUTO) 0.7 % (0.0-3.0); HEMATOCRIT 38.1 % (37.0-47.0); HEMOGLOBIN 12.8 g/dl (12.0-16.0); IMMATURE GRANULOCYTE % (AUTO) 0.4 % (0.0-5.0); LYMPHOCYTES # (AUTO) 2.2 K/uL (0.60-3.4); LYMPHOCYTES % (AUTO) 26.7 (10.0-50.0); MEAN CORPUSCULAR HEMOGLOBIN 28.1 pg (27.0-31.0); MEAN CORPUSCULAR HGB CONC 33.6 (31.8-35.4); MEAN CORPUSCULAR VOLUME 83.7 fl (81.0-99.0); MONOCYTES # (AUTO) 0.5 K/uL (0.4-2.0); MONOCYTES % (AUTO) 5.6 (0-10); NEUTROPHILS # (AUTO) 5.4 K/ul (2.0-6.9); NEUTROPHILS % (AUTO) 66.6 % (42.2-75.2); PLATELET COUNT 245 10^3/uL (140-440); RDW COEFFICIENT OF VARIATION 13.7 % (11.6-14.8); RED BLOOD COUNT 4.55 10^6/ul (4.20-5.40); WHITE BLOOD COUNT 8.16 K/ul (4.6-10.2)
[2020-03-17] MEDS ORDERED: ZOFRAN 4 MG/2 ML IVP PRN (22:54)
[2020-03-17] MEDS ORDERED: TYLENOL PO PRN (22:54)
[2020-03-17 23:02] LABS: ALANINE AMINOTRANSFERASE 9.4 U/L (0-35); ALBUMIN 4.25 g/dL (3.5-5.0); ALKALINE PHOSPHATASE 186.1 U/L (38-126); ASPARTATE AMINO TRANSFERASE 18.5 U/L (14-36); BILIRUBIN,TOTAL 0.33 mg/dL (0.2-1.3); BLOOD UREA NITROGEN 14.1 mg/dL (7-17); CALCIUM 9.68 mg/dL (8.4-10.2); CARBON DIOXIDE 24.9 mmol/L (22-30.0); CHLORIDE 103.8 mmol/L (98-107); CREATINE KINASE 65.2 U/L (30-135); CREATININE 0.74 mg/dL (0.60-1.30); GLUCOSE 150.5 mg/dL (74-106); POTASSIUM 4.29 mmol/L (3.5-5.1); SODIUM 138.9 mmol/L (134.5-145); TOTAL PROTEIN 7.51 g/dL (6.3-8.2)
[2020-03-17 23:15] LABS: TROPONIN I < 0.012 ng/ml (0.0000-0.120)
--- NOTE | 2020-03-17 23:45 | PCM ---
Chief Complaint Chief Complaint: Shortness of breath and cough History of Present Illness History of Present Illness: comes to the ER with complaints of cough and shortness of breath for the past 3 days. Admits to continued tobacco use. Denies any fever or COVID -19 exposure Review of Systems Constitutional: Denies No symptoms, Fever, Chills, Weakness, Sweats, Fatigue, Loss of appetite and Other Ears: Denies No symptoms, Pain, Bleeding, Drainage, Ringing, Hearing loss and Other Nose: Denies No symptoms, Bleeding, Congestion, Discharge and Other Throat: Denies No symptoms, Pain, Swelling, Voice change and Other Mouth: Denies No symptoms, Bleeding, Pain, Swelling and Other Respiratory: Reports Cough, Shortness of air and Wheeze Cardiovascular: Denies Chest pain, Left arm pain, Diaphoresis, PND, Orthopnea, Edema, Palpitations, Syncope and Other Gastrointestinal: Denies Abdominal pain, Nausea, Vomiting, Diarrhea, Melena and Constipation Genitourinary: Denies dysuria, hematuria, frequency, incontinence, flank pain, vaginal discharge, abnormal bleeding, pelvic pain and other Neurological: Denies Headache, Dizziness, Seizure, Numbness, Weakness, Speech difficulty, Problems with walking, Tremor, Fainting and Other Musculoskeletal: Denies Pain, Swelling in joints and Other Skin: Denies Rash, Pruritus, Lacerations, Wounds, Bruising and Other Immunology: Denies Hives, Itching, Frequent infections, Difficulty healing and Other Hematology: Denies Easy bruising, Easy bleeding, Swollen glands and Other Endocrine: Denies Weight changes, Cold intolerance, Heat intolerance, Excessive thirst, Excessive hunger, Polyuria and Other Psychiatric: Reports Anxiety Habits: Reports Tobacco use Allergies Allergies Allergy/AdvReac Type Severity Reaction Status Date / Time ibuprofen Allergy Severe CANT Verified 03/17/20 23:36 BREATHE aspirin AdvReac Unknown Verified 03/17/20 23:36 blue dye AdvReac Unknown Verified 03/17/20 23:36 Iodinated Contrast Media AdvReac Hives Verified 03/17/20 23:36 ketorolac tromethamine AdvReac Unknown Verified 03/17/20 23:36 [From Toradol] levofloxacin [From Levaquin] AdvReac Unknown Verified 03/17/20 23:36 NSAIDS (Non-Steroidal AdvReac Unknown Verified 03/17/20 23:36 Anti-Inflamma oxaprozin [From Daypro] AdvReac Unknown Verified 03/17/20 23:36 sulfamethoxazole AdvReac Unknown Verified 03/17/20 23:36 [From Bactrim] trimethoprim [From Bactrim] AdvReac Unknown Verified 03/17/20 23:36 PFSH Medical History (Updated 10/19/19 @ 08:45 by [employer]) Asthma Chronic arthritis Chronic obstructive pulmonary disease Diabetes mellitus Hyperlipidemia Hypertension Surgical History (Updated 10/19/19 @ 08:45 by [employer] MD) History of section History of ear, nose, and throat (ENT) surgery History of musculoskeletal system surgery History of tubal ligation Status post cholecystectomy Status post hysterectomy Status post tonsillectomy Status post tonsillectomy and adenoidectomy Family History Mother Diabetes Cerebrovascular accident Hypertension FATHER Cardiac disease Other Skin cancer Social History Smoking and tobacco status: Current every day smoker Tobacco type: cigarettes Smoking cigarettes per day: 10 Years smoked: 20 Smoking pack-years: 10.00 Tobacco: How many years used: 20 Passive smoking exposure: No Quit status: not considering quitting Alcohol intake: never Substance use type: does not use Household members: children Housing: house Marital status: D Lives independently: Yes Daycare: no daycare Number of children: 3 (1 ) custodial: No Current occupational status: disabled History of recent travel: No Do you think of yourself as: straight/heterosexual Current gender identity: female Seatbelt use: always Drives intoxicated or rides with intoxicated corrugated fastener driver: No Current diet type/program: regular Caffeine: Yes Eating out: rarely or never Reads food labels: seldom or never During the past year weight has: remained stable Medications Medications: Medications Generic Name Dose Route Start Last Admin Trade Name Freq PRN Reason Stop Dose Admin Acetaminophen 650 mg 03/17/20 22:54 Acetaminophen 325 Mg Tablet PO Q4H PRN Fever >101 Albuterol Sulfate 2 puff 03/18/20 09:00 Albuterol Sulfate 8.5 Gm Inhaler (Single Patient Use) IH QID ANTOINETTE Budesonide/Formoterol Fumarate 1 puff 03/18/20 09:00 Budesonide/Formoterol Fumarate 80/4.5 Mcg Hfa.Aer.Ad IH BID [facility] Enoxaparin Sodium 30 mg 03/18/20 09:00 Enoxaparin Sodium 30 Mg/0.3 Ml Syr SUBCUT DAILY [facility] Sodium Chloride 1,000 mls @ 75 mls/hr 03/17/20 23:00 Sodium Chloride IV .[id number] [facility] Ipratropium New Era 2 puff 03/18/20 09:00 Ipratropium New Era 12.9 Gm Inhaler Single Patient Use IH QID [facility] Methylprednisolone Sodium Succinate 125 mg 03/18/20 05:00 Methylprednisolone Sod Succ/Pf 125 Mg/2 Ml Vial IVP Q8HR ANTOINETTE Ondansetron HCl 4 mg 03/17/20 22:54 Ondansetron Hcl/Pf 4 Mg/2 Ml Sdv IVP Q6H PRN Nausea / Vomiting Sodium Chloride 1 syr 03/17/20 22:18 0.9% Sodium Chloride 10 Ml Disp.Syrin IVF PRN PRN To flush IV Body Composition Height: 5 ft 9 in Weight: 66.1 kg Body Mass Index (BMI): 21.5 Vital Signs Temperature: 96.5 F Pulse Rate: 126 Respiratory Rate: 26 Blood Pressure: 112/89 O2 Sat by Pulse Oximetry: 98 Physical Examination Appearance: Reports Ill-appearing and Thin Ill-appearing: Moderate Pain Distress: None Eyes: Denies TROY, EOMI, Conjunctiva clear, Conjunctiva inflammed, Conjunctiva pale, Right pupil size, Left pupil size and Other Neck: Supple Respiratory: Reports Airway patent, Breath sounds diminished and Wheezes; Denies Breath sounds clear, Breath sounds equal, Respirations nonlabored, Airway obstructed, Crackles, Rhonchi, Retractions and Other Cardiovascular: Reports Tachycardia; Denies RRR, Pulses normal, No rub, No murmur, Irregular rhythm, Bradycardia, Abnormal pulses and Murmur Musculoskeletal: Reports ROM intact; Denies No edema, No calf tenderness, Limited ROM, Limited strength, Edema, Calf tenderness and Other Skin: Denies Warm, Dry, Normal color, Pale, Diaphoretic, Cyanotic and Other Neurological: Reports Sensation intact, Alert and Oriented; Denies Cranial nerves intact, Alert to pain, Unresponsive, Abnormal reflexes, Focal Deficit, CN Palsy and Other Psychiatric: Reports Anxious Lab/Tests/Diagnostic Imaging Lab/Tests/Diagnostic Imaging: Lab Review 03/17/20 03/17/20 03/17/20 22:34 22:44 22:44 WBC 8.16 RBC 4.55 Hgb 12.8 Hct 38.1 MCV 83.7 MCH 28.1 MCHC 33.6 RDW Coeff of Paulina 13.7 Plt Count 245 Immature Gran % (Auto) 0.4 Neut % (Auto) 66.6 Lymph % (Auto) 26.7 [place] % (Auto) 5.6 Eos % (Auto) 0.0 Baso % (Auto) 0.7 Neut # (Auto) 5.4 Lymph # (Auto) 2.2 [place] # (Auto) 0.5 Eos # (Auto) 0.0 Baso # (Auto) 0.1 Immature Gran # (Auto) 0.0 Sodium 138.9 Potassium 4.29 Chloride 103.8 Carbon Dioxide 24.9 Anion Gap 14.49 BUN 14.1 Creatinine 0.74 Estimated GFR (MDRD) 81.00 BUN/Creatinine Ratio 19.05 Glucose 150.5 H Lactic Acid Calcium 9.68 Total Bilirubin 0.33 AST 18.5 ALT 9.4 Alkaline Phosphatase 186.1 H Total Creatine Kinase 65.2 Troponin I < 0.012 Total Protein 7.51 Albumin 4.25 Globulin 3.26 Albumin/Globulin Ratio 1.30 Procalcitonin SARS-CoV-2 Ag (Rapid) Negative 03/17/20 03/17/20 22:44 22:44 WBC RBC Hgb Hct MCV MCH MCHC RDW Coeff of Paulina Plt Count Immature Gran % (Auto) Neut % (Auto) Lymph % (Auto) [place] % (Auto) Eos % (Auto) Baso % (Auto) Neut # (Auto) Lymph # (Auto) [place] # (Auto) Eos # (Auto) Baso # (Auto) Immature Gran # (Auto) Sodium Potassium Chloride Carbon Dioxide Anion Gap BUN Creatinine Estimated GFR (MDRD) BUN/Creatinine Ratio Glucose Lactic Acid 2.79 H Calcium Total Bilirubin AST ALT Alkaline Phosphatase Total Creatine Kinase Troponin I Total Protein Albumin Globulin Albumin/Globulin Ratio Procalcitonin < 0.05 SARS-CoV-2 Ag (Rapid) Orders Category Date Time Status ABG DRAW REQUEST Stat CARDIO 03/17/20 22:19 Ordered EKG-(ED ONLY) Stat CARDIO 03/17/20 22:18 Ordered OXYGEN Routine CARDIO 03/17/20 22:51 Ordered ACTIVITY .Up ad [place] CARE 03/17/20 22:51 Active BLOOD GLUCOSE MONITORING ACCUCHECK Q6H CARE 03/17/20 23:00 Active GIVE HS SNACK 2100 CARE 03/17/20 22:59 Active INTAKE & OUTPUT Q8HR CARE 03/17/20 22:52 Active INTAKE & OUTPUT Q8HR CARE 03/17/20 22:54 Active VITAL SIGNS Q4HR CARE 03/17/20 22:54 Active VITAL SIGNS Q8HR CARE 03/17/20 22:52 Active ADA 1800 MAYE. DIET DIETARY 03/17/20 Breakfast Ordered HS SNACK DIETARY 03/17/20 Dinner Ordered REGULAR DIET DIETARY 03/17/20 Breakfast Ordered ED APPLY O2 .ONCE EMERGENCY 03/17/20 22:18 Active ED CRAYON PAINTER APPLIED .ONCE EMERGENCY 03/17/20 22:18 Active ED IV/MEDIPORT/POWERPORT .ONCE EMERGENCY 03/17/20 22:18 Active ABG COOX Stat LAB 03/17/20 22:18 Ordered BASIC METABOLIC PANEL DAILY@0600 LAB 03/18/20 06:00 Ordered BASIC METABOLIC PANEL DAILY@0600 LAB 03/19/20 06:00 Ordered BLOOD CULTURE (ED ONLY) Stat LAB 03/17/20 22:44 Received CBC W/ AUTO DIFF DAILY@0600 LAB 03/18/20 06:00 Ordered CBC W/ AUTO DIFF DAILY@0600 LAB 03/19/20 06:00 Ordered CBC W/ AUTO DIFF Stat LAB 03/17/20 22:44 Completed COMPREHENSIVE METABOLIC PANEL Stat LAB 03/17/20 22:44 Completed COVID-19 ANTIGEN TEST Stat LAB 03/17/20 22:34 Completed CREATINE KINASE Q8H LAB 03/18/20 05:00 Ordered CREATINE KINASE Q8H LAB 03/18/20 13:00 Ordered CREATINE KINASE Stat LAB 03/17/20 22:44 Completed LACTIC ACID Stat LAB 03/17/20 22:44 Completed PROCALCITONIN Stat LAB 03/17/20 22:44 Completed TROPONIN I Q8H LAB 03/18/20 05:00 Ordered TROPONIN I Q8H LAB 03/18/20 13:00 Ordered TROPONIN I Stat LAB 03/17/20 22:44 Completed 0.9 % Sodium Chloride [Saline Flush] MEDS 03/17/20 22:18 Active 1 syr IVF PRN PRN Acetaminophen [Tylenol] MEDS 03/17/20 22:54 Ordered 650 mg PO Q4H PRN Albuterol Inhaler (Single Pt) [Proair Hfa (Single MEDS 03/17/20 22:24 Discontinued Patient Use)] 2 puff IH ONCE STA Albuterol Inhaler (Single Pt) [Proair Hfa (Single MEDS 03/18/20 09:00 Ordered Patient Use)] 2 puff IH QID Budesonide/Formoterol Fumarate [Symbicort 80-4.5 Mcg MEDS 03/18/20 09:00 Acti ve Inhaler] 1 puff IH BID Enoxaparin Sodium [Lovenox] MEDS 03/18/20 09:00 Ordered 30 mg SUBCUT DAILY Ipratropium Inhaler(Single Pt) [Atrovent Hfa Inhaler ( MEDS 03/17/20 22:24 D iscontinued Single Patient Use)] 2 puff IH ONCE STA Ipratropium Inhaler(Single Pt) [Atrovent Hfa Inhaler ( MEDS 03/18/20 09:00 Ordered Single Patient Use)] 2 puff IH QID Methylprednisolone Sod Succ/Pf [Solu-Medrol 125 mg] MEDS 03/17/20 22:18 Discontinued 125 mg IVP ONCE STA Methylprednisolone Sod Succ/Pf [Solu-Medrol 125 mg] MEDS 03/18/20 05:00 Ordered 125 mg IVP Q8HR Ondansetron HCl/Pf [Zofran 4 mg/2 ml] MEDS 03/17/20 22:54 Active 4 mg IVP Q6H PRN Sodium Chloride 0.9% [Sodium Chloride] 1,000 ml MEDS 03/17/20 23:00 Active IV 75 mls/hr RESUSCITATION STATUS Routine OTHERS 03/17/20 22:51 Ordered CHEST, 1V AP ONLY Stat RADS 03/17/20 22:18 Completed Medications Generic Name Dose Route Start Last Admin Trade Name Freq PRN Reason Stop Dose Admin Acetaminophen 650 mg 03/17/20 22:54 Acetaminophen 325 Mg Tablet PO Q4H PRN Fever >101 Albuterol Sulfate 2 puff 03/18/20 09:00 Albuterol Sulfate 8.5 Gm Inhaler (Single Patient Use) IH QID ANTOINETTE Budesonide/Formoterol Fumarate 1 puff 03/18/20 09:00 Budesonide/Formoterol Fumarate 80/4.5 Mcg Hfa.Aer.Ad IH BID ANTOINETTE Enoxaparin Sodium 30 mg 03/18/20 09:00 Enoxaparin Sodium 30 Mg/0.3 Ml Syr SUBCUT DAILY ANTOINETTE Sodium Chloride 1,000 mls @ 75 mls/hr 03/17/20 23:00 Sodium Chloride IV .[id number] ANTOINETTE Ipratropium New Era 2 puff 03/18/20 09:00 Ipratropium New Era 12.9 Gm Inhaler Single Patient Use IH QID ANTOINETTE Methylprednisolone Sodium Succinate 125 mg 03/18/20 05:00 Methylprednisolone Sod Succ/Pf 125 Mg/2 Ml Vial IVP Q8HR ANTOINETTE Ondansetron HCl 4 mg 03/17/20 22:54 Ondansetron Hcl/Pf 4 Mg/2 Ml Sdv IVP Q6H PRN Nausea / Vomiting Sodium Chloride 1 syr 03/17/20 22:18 0.9% Sodium Chloride 10 Ml Disp.Syrin IVF PRN PRN To flush IV Discontinued Medications Generic Name Dose Route Start Last Admin Trade Name Freq PRN Reason Stop Dose Admin Albuterol Sulfate 2 puff 03/17/20 22:24 Albuterol Sulfate 8.5 Gm Inhaler (Single Patient Use) 03/17/20 22:25 ONCE STA Ipratropium New Era 2 puff 03/17/20 22:24 Ipratropium New Era 12.9 Gm Inhaler Single Patient Use 03/17/20 22:25 ONCE STA Methylprednisolone Sodium Succinate 125 mg 03/17/20 22:18 03/17/20 22:47 Methylprednisolone Sod Succ/Pf 125 Mg/2 Ml Vial IVP 03/17/20 22:19 125 mg ONCE STA Administration Assessment (1) COPD exacerbation: Status: Acute Code(s): J44.1 - Chronic obstructive pulmonary disease with (acute) exacerbation SNOMED Code(s): 445345161 Plan Plan: admit to [facility]. start IV steroids continue Inhailers.
[2020-03-17] MEDS: SODIUM CHLORIDE 1,000 ML IV SCH (23:46)
[2020-03-17 23:51] LABS: ABG PH 7.36 (7.35-7.45)
[2020-03-17] MEDS ORDERED: VENTOLIN HFA (PER PUFF-WITH SPACER) IH ONE (23:56)
[2020-03-17] MEDS ORDERED: ATROVENT HFA INHALER (PER PUFF-WITH SPACER) IH ONE (23:56)
[2020-03-18] MEDS ORDERED: ATIVAN PO PRN (00:03)
[2020-03-18] MEDS ORDERED: FLEXERIL PO PRN (00:03)
[2020-03-18] MEDS ORDERED: CARDIZEM PO SCH (00:30)
[2020-03-18 00:48] VITALS: BMI 19.8
[2020-03-18] MEDS ORDERED: VENTOLIN HFA (PER PUFF-WITH SPACER) IH ONE (04:50)
[2020-03-18] MEDS ORDERED: ATROVENT HFA INHALER (PER PUFF-WITH SPACER) IH ONE (04:50)
[2020-03-18 05:33] LABS: BASOPHILS % (AUTO) 0.3 % (0.0-3.0); HEMOGLOBIN 12.6 g/dl (12.0-16.0); IMMATURE GRANULOCYTE % (AUTO) 0.4 % (0.0-5.0); LYMPHOCYTES # (AUTO) 0.7 K/uL (0.60-3.4); LYMPHOCYTES % (AUTO) 9.7 (10.0-50.0); MEAN CORPUSCULAR HEMOGLOBIN 27.7 pg (27.0-31.0); MEAN CORPUSCULAR HGB CONC 33.2 (31.8-35.4); MEAN CORPUSCULAR VOLUME 83.5 fl (81.0-99.0); MONOCYTES % (AUTO) 0.4 (0-10); NEUTROPHILS # (AUTO) 6.2 K/ul (2.0-6.9); NEUTROPHILS % (AUTO) 89.2 % (42.2-75.2); PLATELET COUNT 233 10^3/uL (140-440); RDW COEFFICIENT OF VARIATION 13.6 % (11.6-14.8); RED BLOOD COUNT 4.55 10^6/ul (4.20-5.40); WHITE BLOOD COUNT 6.91 K/ul (4.6-10.2)
[2020-03-18 05:40] LABS: CREATINE KINASE 67.8 U/L (30-135)
[2020-03-18 05:47] LABS: BLOOD UREA NITROGEN 16.6 mg/dL (7-17); CALCIUM 9.67 mg/dL (8.4-10.2); CARBON DIOXIDE 28.9 mmol/L (22-30.0); CHLORIDE 101.9 mmol/L (98-107); CREATININE 0.69 mg/dL (0.60-1.30); GLUCOSE 236.7 mg/dL (74-106); POTASSIUM 4.46 mmol/L (3.5-5.1); SODIUM 137.6 mmol/L (134.5-145)
[2020-03-18] MEDS: SOLU-MEDROL 125 MG IVP SCH ×3 (05:52→20:50)
[2020-03-18 05:53] LABS: TROPONIN I < 0.012 ng/ml (0.0000-0.120)
[2020-03-18] MEDS ORDERED: ATROVENT HFA INHALER (SINGLE PATIENT USE) IH SCH ×2 (06:00→09:00)
[2020-03-18] MEDS ORDERED: PROAIR HFA (SINGLE PATIENT USE) IH SCH ×2 (06:00→09:00)
[2020-03-18] MEDS: THEOPHYLLINE ER 24HR PO SCH (08:42)
[2020-03-18] MEDS: LIPITOR PO SCH (08:42)
[2020-03-18] MEDS: ZESTRIL PO SCH (08:42)
[2020-03-18] MEDS: CARDIZEM PO SCH ×2 (08:42→20:25)
[2020-03-18] MEDS: SYMBICORT 80-4.5 MCG INHALER IH SCH ×2 (08:43→20:26)
[2020-03-18] MEDS: GLUCOPHAGE PO SCH ×2 (08:43→17:28)
[2020-03-18] MEDS: LOVENOX SUBCUT SCH (08:43)
[2020-03-18] MEDS: [UNRECOGNIZED DRUG - MIXTURE] IH SCH (08:49)
[2020-03-18] MEDS: ATROVENT HFA INHALER (PER PUFF-WITH SPACER) IH SCH ×3 (10:00→21:37)
[2020-03-18] MEDS ORDERED: ATROVENT HFA INHALER (PER PUFF-WITH SPACER) IH SCH ×2 (10:00→19:30)
[2020-03-18] MEDS: VENTOLIN HFA (PER PUFF-WITH SPACER) IH SCH ×3 (10:05→21:38)
[2020-03-18] MEDS: NORCO 5-325 PO PRN (13:04)
[2020-03-18 13:11] LABS: CREATINE KINASE 61.8 U/L (30-135)
[2020-03-18] MEDS: SODIUM CHLORIDE 1,000 ML IV SCH ×3 (13:14→21:28)
[2020-03-18 13:24] LABS: TROPONIN I < 0.012 ng/ml (0.0000-0.120)
[2020-03-18] MEDS ORDERED: SODIUM CHLORIDE 500 ML IV STA (19:05)
--- NOTE | 2020-03-18 19:12 | PCM.PROG ---
Date Seen by Provider: 03/18/20 Time Seen by Provider: 19:14 Subjective: Pt is still very SOB. Objective: Vitals: T=96.7 F, P=112, R=22, HI=926/70, SPO2=99 HEENT: []wnl Neck: []supple Lungs: [] mild persistent wheezes and rhonchi CVS: []tachycardia Abdomen: []benign Extremities: []no acute edema. full ROM Neurological: []non-focal Skin: []wnl Lab/Tests/Diagnostic Imaging: [] (1) COPD exacerbation: Status: Acute Code(s): J44.1 - Chronic obstructive pulmonary disease with (acute) exacerbation SNOMED Code(s): 027179911 Plan: 1. Increase IV fluids------to address tachycardia. 2. Q4h Albuterol/Atrovent MDI 3. Continue IV Solumedrol 4. will repeat CXR in the AM.
[2020-03-18] MEDS ORDERED: VENTOLIN HFA (PER PUFF-WITH SPACER) IH PRN (19:16)
[2020-03-18] MEDS ORDERED: VENTOLIN HFA (PER PUFF-WITH SPACER) IH SCH (19:30)
[2020-03-18] MEDS: ELAVIL PO SCH (20:24)
[2020-03-18] MEDS: REQUIP PO SCH (20:24)
[2020-03-18] MEDS: SEROQUEL PO SCH (20:24)
[2020-03-18] MEDS: NICODERM 14 MG TD SCH (21:14)
[2020-03-19] MEDS: VENTOLIN HFA (PER PUFF-WITH SPACER) IH SCH ×6 (01:00→21:25)
[2020-03-19] MEDS: ATROVENT HFA INHALER (PER PUFF-WITH SPACER) IH SCH ×6 (01:00→21:25)
[2020-03-19 05:33] LABS: BASOPHILS % (AUTO) 0.1 % (0.0-3.0); HEMATOCRIT 32.9 % (37.0-47.0); HEMOGLOBIN 10.9 g/dl (12.0-16.0); IMMATURE GRANULOCYTE # (AUTO) 0.1 (0.0-1.0); IMMATURE GRANULOCYTE % (AUTO) 0.6 % (0.0-5.0); LYMPHOCYTES % (AUTO) 10.6 (10.0-50.0); MEAN CORPUSCULAR HEMOGLOBIN 27.9 pg (27.0-31.0); MEAN CORPUSCULAR HGB CONC 33.1 (31.8-35.4); MEAN CORPUSCULAR VOLUME 84.4 fl (81.0-99.0); MONOCYTES # (AUTO) 0.2 K/uL (0.4-2.0); MONOCYTES % (AUTO) 2.1 (0-10); NEUTROPHILS # (AUTO) 7.8 K/ul (2.0-6.9); NEUTROPHILS % (AUTO) 86.6 % (42.2-75.2); PLATELET COUNT 209 10^3/uL (140-440); RDW COEFFICIENT OF VARIATION 13.7 % (11.6-14.8); WHITE BLOOD COUNT 9.03 K/ul (4.6-10.2)
[2020-03-19] MEDS: SODIUM CHLORIDE 1,000 ML IV SCH ×4 (05:42→18:15)
[2020-03-19 05:45] LABS: CALCIUM 9.03 mg/dL (8.4-10.2); CARBON DIOXIDE 22.1 mmol/L (22-30.0); CHLORIDE 106.6 mmol/L (98-107); CREATININE 0.66 mg/dL (0.60-1.30); POTASSIUM 4.42 mmol/L (3.5-5.1); SODIUM 138.2 mmol/L (134.5-145)
[2020-03-19 06:14] LABS: THYROID STIMULATING HORMONE 0.125 uIU/L (0.465-4.68)
[2020-03-19] MEDS: SOLU-MEDROL 125 MG IVP SCH ×3 (06:24→17:51)
[2020-03-19] MEDS: ZESTRIL PO SCH (08:48)
[2020-03-19] MEDS: LIPITOR PO SCH (08:48)
[2020-03-19] MEDS: THEOPHYLLINE ER 24HR PO SCH (08:48)
[2020-03-19] MEDS: CARDIZEM PO SCH ×2 (08:48→20:53)
[2020-03-19] MEDS: GLUCOPHAGE PO SCH ×2 (08:48→17:17)
[2020-03-19] MEDS: NICODERM 14 MG TD SCH (08:49)
[2020-03-19] MEDS: LOVENOX SUBCUT SCH (08:51)
[2020-03-19] MEDS: SYMBICORT 80-4.5 MCG INHALER IH SCH ×2 (09:00→20:53)
--- NOTE | 2020-03-19 09:43 | DI ---
EXAM: Chest one view HISTORY: Shortness of breath COMPARISON: 03/17/2020 TECHNIQUE: Single view of the chest was performed FINDINGS: No airspace consolidation. Small left suprahilar nodular opacity may reflect vascular sum mation artifact.. Lungs are hyperinflated. There is no pleural effusion or pneumothorax. The heart is normal in size. The mediastinal contour is normal. There are no acute abnormalities of the bone s. IMPRESSION: 1. No acute cardiopulmonary process. 2. Chronic obstructive pulmonary disease. 3. Small left suprahilar nodular opacity may reflect vascular summation artifact. Recommend correla tion with PA and lateral chest radiographs and/or CT.
--- NOTE | 2020-03-19 11:07 | CT ---
EXAM: CT chest without contrast HISTORY: Chronic obstructive pulmonary disease COMPARISON: 11/23/2018 and 01/28/2018 TECHNIQUE: CT chest performed without intravenous contrast. Coronal and sagittal reformatted images obtained. FINDINGS: Thoracic inlet unremarkable. Heart normal in size. Coronary calcifications. No pericard ial effusion. Aorta normal in caliber. Moderate atherosclerosis. Ectasia upper abdominal aorta aaron suring 2.2 cm is incompletely imaged. Visualized portion upper abdomen demonstrates no acute abnorma lity. Evaluation for lymphadenopathy limited without contrast. No lymphadenopathy identified in the chest. No acute abnormalities of the bones. Degenerative change in the spine. Central airway stovall nt. Mild to moderate emphysema. Bilateral lower airway thickening. No airspace consolidation. No pleural effusion. No pneumothorax. Granulomas calcification left lung. Stable minimal perifissural thickening right lung. New 3 mm nodule left lung image 19. IMPRESSION: 1. Emphysema 2. Bilateral lower airway thickening, suggesting small airways infection/inflammation. No airspace consolidation. 3. New 3 mm nodule left lung. Recommend CT chest follow-up 6 months to ensure stability. 4. Coronary calcifications. Atherosclerosis. All CT scans are performed using dose optimization techniques as appropriate to the performed exam an d include at least one of the following: Automated exposure control, adjustment of the mA and/or kV according t o size, and the use of iterative reconstruction technique.
--- NOTE | 2020-03-19 11:22 | PCM.PROG ---
Date Seen by Provider: 03/19/20 Time Seen by Provider: 09:44 Subjective: Pt felt much better x this AM. She was not very SOB [id number] Objective: Vitals: T=97.5 F, P=120, R=24, IG=847/67, SPO2=99 HEENT: []wnl Neck: []supple. no goiter Lungs: [] minimal wheezes and rhonchi CVS: []pulse 105, both HS heard Abdomen: [] benign Extremities: []no acute abnormality Neurological: []non- focal``````````````````````````````````````````````````````````````` Skin: []no acute abnormality Lab/Tests/Diagnostic Imaging: []See CXR report. (1) COPD exacerbation: Status: Acute Code(s): J44.1 - Chronic obstructive pulmonary disease with (acute) exacerbation SNOMED Code(s): 562630484 Plan: 1. Will refer to supervisor nurse for thyroid review at discharge. 2. Continue aggressive COPD regimen. Monitor pulse. 3. Review CT chest report 4. Plan for discharge home on 03/20/2020.
[2020-03-19] MEDS: [UNRECOGNIZED DRUG - MIXTURE] IH SCH (12:09)
[2020-03-19] MEDS: NORCO 5-325 PO PRN ×2 (12:17→21:46)
[2020-03-19] MEDS ORDERED: LOPRESSOR IVP STA (17:45)
[2020-03-19] MEDS: BENADRYL PO SCH (18:12)
[2020-03-19] MEDS: REQUIP PO SCH (20:52)
[2020-03-19] MEDS: SEROQUEL PO SCH (20:53)
[2020-03-19] MEDS: ELAVIL PO SCH (20:53)
[2020-03-20] MEDS: SOLU-MEDROL 125 MG IVP SCH ×2 (00:27→05:53)
[2020-03-20] MEDS: VENTOLIN HFA (PER PUFF-WITH SPACER) IH SCH ×2 (01:15→04:50)
[2020-03-20] MEDS: ATROVENT HFA INHALER (PER PUFF-WITH SPACER) IH SCH ×2 (01:15→04:50)
[2020-03-20] MEDS: SODIUM CHLORIDE 1,000 ML IV SCH (02:03)
[2020-03-20] MEDS: BENADRYL PO SCH (03:43)
[2020-03-20 05:39] VITALS: BP 116/69; TEMP 97.5
[2020-03-20] MEDS ORDERED: PREDNISONE PO STA (08:52)
--- NOTE | 2020-03-20 09:10 | PCM.PROG ---
My says she is feeling better now---she feels good enough to go home --she has oxygen at home---she understands she will need to follow up with her pcp regarding her abnormal thyroid testing (suggest endocrinology referral) and also follow up with pcp regarding new nodule on ct scan.,
[2020-03-20] MEDS: THEOPHYLLINE ER 24HR PO SCH (09:42)
[2020-03-20] MEDS: GLUCOPHAGE PO SCH (09:42)
[2020-03-20] MEDS: CARDIZEM PO SCH (09:42)
[2020-03-20] MEDS: LIPITOR PO SCH (09:42)
[2020-03-20] MEDS: NICODERM 14 MG TD SCH (09:42)
[2020-03-20] MEDS: ZESTRIL PO SCH (09:43)
[2020-03-20] MEDS: SYMBICORT 80-4.5 MCG INHALER IH SCH (09:47)
[2020-03-20] MEDS: LOVENOX SUBCUT SCH (09:48)
--- NOTE | 2020-03-20 12:19 | PCM.DC ---
Final Diagnosis: (1) COPD exacerbation: Status: Acute Code(s): J44.1 - Chronic obstructive pulmonary disease with (acute) exacerbation SNOMED Code(s): 408111747 (2) Chronic respiratory failure: Status: Acute Code(s): J96.10 - Chronic respiratory failure, unspecified whether with hypoxia or hypercapnia SNOMED Code(s): 62884089 Qualifiers: Respiratory failure complication: hypoxia Qualified Code(s): J96.11 - Chronic respiratory failure with hypoxia Reason for Hospitalization: worsening dyspnea Prognosis at Discharge: guarded Condition at Discharge: stable Medications at Discharge: Ambulatory Orders Medication Instructions Recorded metformin [Fortamet] 500 mg PO BID 12/27/13 ropinirole [Requip] 3 mg PO BEDTIME 12/27/13 quetiapine [Seroquel] 400 mg PO BEDTIME 02/07/15 ipratropium-albuterol 1 vial NEB RTQ6H PRN #90 vial.neb 11/12/15 lisinopril [Zestril] 2.5 mg PO DAILY #30 tablet 05/02/17 atorvastatin 20 mg PO DAILY 08/15/17 Simone-24 400 mg PO DAILY 11/15/17 albuterol sulfate [Ventolin HFA] 18 g INHALATION PRN PRN 11/15/17 amitriptyline 50 mg PO BEDTIME 11/15/17 Incruse Ellipta 62.5 mcg INHALATION DAILY 11/03/18 hydrocodone-acetaminophen 1 tab PO TID PRN tab 01/12/19 cyclobenzaprine 10 mg PO BID PRN 04/06/19 lorazepam 0.5 mg PO BID PRN 04/06/19 diltiazem HCl 30 mg tablet 30 mg PO Q12H #180 tab 06/01/19 guaifenesin [Mucinex] 1,200 mg PO BID #60 tab 03/20/20 nicotine [Nicoderm CQ] 1 patch TRANSDERMAL DAILY 30 Days 03/20/20 ea prednisone See Rx Instructions .ROUTE 03/20/20 .COMPLEX #21 tab Lab/Diagnostics: noted abnormal thyroid functions and ct of chest(nodule) Education Provided to Patient and Family: smoking cessation Follow-ups: one week with her pcp to discuss follow up of nodule and abnormal thyroid functions Discharge Disposition: Home Hospital Course: she did well wiht steroids--her breathing improved and at time of discharge her oximetry was acceptable Plan: home with home meds, steroids, smoking cessation and follow up on thyroid functions and abnormal ct scan with her pcp within a week
== END 2020-03-20 10:45 | disposition home or self-care (01) ==
LOC: ED 21:58 → MEDSURG A 23:31 → INTOOBSV 23:31 → MEDSURG A 23:57 → UNDODISIN 03-20 09:17
PROVIDERS: ADMIT Internal Medicine Geriatric Medicine; ATTEND Family Medicine
DX: R06.02 Shortness of breath; R05 Cough